=== PATIENT | female | born 1945 | race African-American/Black ===

== ENCOUNTER → 2016-05-29 | Outpatient (CLI) | payer MEDICARE, OTHER ==
[2014-11-07 18:00] VITALS: BP 180/86
[~2016-05-29] MED LIST: AMLO10TA4 PO; ASPI81TA2 PO; Albuterol Sulfate NEB; FLUT1DIS3 INH; FOLI1TAB16 PO; Hydrocodone Bit/Acetaminophen PO; LATA2.5D3 OP; Lisinopril PO; METH2.5T PO; METO25TA2 PO; MORP30TA83 PO; PANT40TA5 PO; POTA10TA10 PO; TIMO1DRO2 OP
--- NOTE | 2016-06-01 10:14 | RAD ---
DATE: 05/29/2016 EXAM: DIGITAL SCREEN BILAT W/CAD HISTORY: Routine screening COMPARISON: 12/03/2014 This study was interpreted with the benefit of Computerized Aided Detection (CAD). FINDINGS: There are scattered fibroglandular densities in the breasts. No new or enlarging breast densities are seen. There are scattered benign type calcifications. No suspicious microcalcifications have developed. Benign-appearing lymph node type densities are present maxillary regions. IMPRESSION: Stable mammograms without evidence of malignancy. BI-RADS CATEGORY: 2 BENIGN FINDING(S) RECOMMENDED FOLLOW-UP: 12M 12 MONTH FOLLOW-UP PQRS compliance statement: Patient information was entered into a reminder system with a target due date for the next mammogram. Mammography is a sensitive method for finding small breast cancers, but it does not detect them all and is not a substitute for careful clinical examination. A negative mammogram does not negate a clinically suspicious finding and should not result in delay in biopsying a clinically suspicious abnormality. "Our facility is accredited by the [employer] Mammography [employer]."
== END | disposition home or self-care (01) ==
LOC: MAMMO 14:51
PROVIDERS: ATTEND Family Medicine
DX: Z12.31 Encounter for screening mammogram for malignant neoplasm of breast (principal)
CPT/HCPCS: G0202; 77067

== ENCOUNTER → 2016-06-05 | Outpatient (CLI) | payer MEDICARE, OTHER ==
[2014-11-07 18:00] VITALS: BP 180/86
--- NOTE | 2016-06-05 12:12 | CARD ---
APPROVED REPORT EXAM: Two-dimensional and M-mode echocardiogram with Doppler and color Doppler. Other Information Quality : Good INDICATION Congestive Heart Failure 2D DIMENSIONS RVDd2.9 (2.9-3.5cm)Left Atrium(2D)4.3 (1.6-4.0cm) IVSd1.2 (0.7-1.1cm)Aortic Root(2D)2.7 (2.0-3.7cm) LVDd4.4 (3.9-5.9cm)LVOT Diameter2.3 (1.8-2.4cm) PWd1.2 (0.7-1.1cm)LVDs3.8 (2.5-4.0cm) FS (%) 20.0 %SV26.4 ml LVEF(%)40.0 (>50%) Aortic Valve AoV Peak Zbigniew.149.9cm/sAoV VTI31.6cm AO Peak GR.9.0mmHgLVOT Peak Zbigniew.124.5cm/s AO Mean GR.5mmHgAVA (VMAX)3.34cm2 ODIN (VTI)3.70cm2 Mitral Valve MV E Mfoamwxa79.3cm/sMV DECEL [id number] MV A Dyezpioq018.7cm/sE/A Ratio0.7 Tricuspid Valve TR P. Tkikdsas243fa/sRAP ZGVNQDVN2cfSa TR Peak Gr.74guVxJBWP64bpNh Pulmonary Vein S1 Wtkwnujs62.1cm/sD2 Eqxrxbae48.9cm/s PVa [id number] LEFT VENTRICLE The left ventricle is normal size. There is mild concentric left ventricular hypertrophy. Low normal LV function. EF 50%. There is minimal global hypokinesis. Transmitral Doppler flow pattern is Grade I -abnormal relaxation pattern. RIGHT VENTRICLE The right ventricle is normal size. The right ventricular systolic function is normal. ATRIA The left atrium is mildly dilated. The right atrium size is normal. The interatrial septum is intact with no evidence for an atrial septal defect or patent foramen ovale as noted on 2-D or Doppler imagi ng. AORTIC VALVE The aortic valve is calcified but opens well. Doppler and Color Flow revealed trace aortic regurgitat ion. There is no significant aortic valvular stenosis. MITRAL VALVE The mitral valve is calcified but opens well. Posterior mitral annular calcification is mild. There i s no evidence of mitral valve prolapse. There is no mitral valve stenosis. Doppler and Color-flow rev ealed mild mitral regurgitation. TRICUSPID VALVE The tricuspid valve is normal in structure and function. Doppler and Color Flow revealed mild tricusp id regurgitation. There is moderate pulmonary hypertension. The PA pressure was estimated at 42 mmHg. There is no tricuspid valve stenosis. PULMONIC VALVE Doppler and Color Flow revealed trace to mild pulmonic valvular regurgitation. There is no pulmonic v alvular stenosis. GREAT VESSELS The aortic root is normal in size. The IVC is dilated and collapses >50% with inspiration. PERICARDIAL EFFUSION There is no evidence of significant pericardial effusion. Critical Notification Critical Value: No <Conclusion> Low normal LV function. EF 50%. There is minimal global hypokinesis. Doppler and Color Flow revealed mild tricuspid regurgitation. There is moderate pulmonary hypertensio n. The PA pressure was estimated at 42 mmHg.
== END | disposition home or self-care (01) ==
LOC: ECHO 09:47
PROVIDERS: ATTEND Internal Medicine Cardiovascular Disease
DX: I50.30 Unspecified diastolic (congestive) heart failure (principal); I08.3 Combined rheumatic disorders of mitral, aortic and tricuspid valves; I27.2 Other secondary pulmonary hypertension
CPT/HCPCS: 93306

== ENCOUNTER 2016-06-15 15:17 | Inpatient (IN) | payer MEDICARE, OTHER ==
[~2016-06-15] VITALS: Ht 160 cm; Wt 110.7 kg
[2016-06-15] MEDS ORDERED: NITROGLYCERIN SUBLINGUAL 0.4 MG BOTTLE OF 25. SL PRN (16:30)
--- NOTE | 2016-06-15 16:30 | PHYS DOC ---
Past Medical History Past Medical History: Arthritis, Hypertension Additional Past Medical Histor: bradycardia- pacemaker placed Past Surgical History: Hysterectomy, Pacemaker, Tubal ligation Additional Past Surgical Histo: left wrist, left knee, hernia, cataract Alcohol Use: None Drug Use: None Adult General Chief Complaint Chief Complaint: CHEST PAIN [facility] HPI 70-year-old female who is presenting with right upper chest pain as well as pain that she states is in her right ear. She denies any neck or jaw pain. She does states she's mildly nauseated feels that she could vomit. She states the pain is somewhat reproducible. Patient does state she has a pacemaker but denies any history of cardiac stents. She is on eliquis for previous DVT. Review of Systems Review of Systems Constitutional: Denies fever or chills [] Eyes: Denies change in visual acuity, redness, or eye pain [] HENT: Denies nasal congestion or sore throat [] Respiratory: Denies cough or shortness of breath [] Cardiovascular: No additional information not addressed in HPI [] GI: Denies abdominal pain, has nausea, has vomiting, denies bloody stools or diarrhea [] : Denies dysuria or hematuria [] Musculoskeletal: Denies back pain or joint pain [] Integument: Denies rash or skin lesions [] Neurologic: Denies headache, focal weakness or sensory changes [] Endocrine: Denies polyuria or polydipsia [] Current Medications Current Medications Current Medications Medications (Trade) Dose Ordered Sig/Celina Start Time Stop Time Status Last Admin Dose Admin Nitroglycerin (Nitrostat) 0.4 mg PRN Q5MIN PRN 06/15/16 16:30 Allergies Allergies Allergies Coded Allergies Type Severity Reaction Last Updated Verified Penicillins Allergy Intermediate hives 12/06/13 Yes orange juice Allergy Intermediate unknown 12/06/13 Yes Physical Exam Physical Exam Constitutional: Well developed, well nourished, no acute distress, non-toxic appearance. [] HENT: Normocephalic, atraumatic, bilateral external ears normal, oropharynx moist, no oral exudates, nose normal. [] Eyes: PERRLA, EOMI, conjunctiva normal, no discharge. [] Neck: Normal range of motion, no tenderness, supple, no stridor. [] Cardiovascular:Heart rate regular rhythm, no murmur [] Lungs & Thorax: Bilateral breath sounds clear to auscultation [] Abdomen: Bowel sounds normal, soft, no tenderness, no masses, no pulsatile masses. [] Skin: Warm, dry, no erythema, no rash. [] Back: No tenderness, no CVA tenderness. [] Extremities: No tenderness, no cyanosis, no clubbing, ROM intact, no edema. [] Neurologic: Alert and oriented X 3, normal motor function, normal sensory function, no focal deficits noted. [] Psychologic: Affect normal, judgement normal, mood normal. [] Current Patient Data Vital Signs Vital Signs Date Time Temp Pulse Resp B/P Pulse Ox O2 Delivery O2 Flow Rate FiO2 06/15/16 18:30 70 194/90 95 Room Air 06/15/16 18:00 20 Lab Values Laboratory Tests Test 06/15/16 18:35 White Blood Count 5.5x10^3/uL (4.0-11.0) Red Blood Count 4.06x10^6/uL (3.50-5.40) Hemoglobin 11.7g/dL (12.0-15.5) L Hematocrit 36.5% (36.0-47.0) Mean Corpuscular Volume 90fL (79-100) Mean Corpuscular Hemoglobin 29pg (25-35) Mean Corpuscular Hemoglobin Concent 32g/dL (31-37) Red Cell Distribution Width 16.6% (11.5-14.5) H Platelet Count 215x10^3/uL (140-400) Neutrophils (%) (Auto) 39% (31-73) Lymphocytes (%) (Auto) 45% (24-48) Monocytes (%) (Auto) 8% (0-9) Eosinophils (%) (Auto) 7% (0-3) H Basophils (%) (Auto) 1% (0-3) Neutrophils # (Auto) 2.1x10^3uL (1.8-7.7) Lymphocytes # (Auto) 2.5x10^3/uL (1.0-4.8) Monocytes # (Auto) 0.5x10^3/uL (0.0-1.1) Eosinophils # (Auto) 0.4x10^3/uL (0.0-0.7) Basophils # (Auto) 0.1x10^3/uL (0.0-0.2) Sodium Level 138mmol/L (136-145) Potassium Level 3.1mmol/L (3.5-5.1) L Chloride Level 100mmol/L (98-107) Carbon Dioxide Level 31mmol/L (21-32) Anion Gap 7 (6-14) Blood Urea Nitrogen 14mg/dL (7-20) Creatinine 0.7mg/dL (0.6-1.0) Estimated GFR (Cockcroft-Gault) 99.8 Glucose Level 125mg/dL (70-99) H Calcium Level 8.8mg/dL (8.5-10.1) Troponin I Quantitative < 0.017ng/mL (0.000-0.055) Laboratory Tests 06/15/16 18:35 Laboratory Tests 06/15/16 18:35 EKG EKG EKG as interpreted by me shows a sinus rhythm with a rightward axis. There is an approximate rate of 71 bpm. There is a T-wave inversion to lead II, V3, aVF Radiology/Procedures Radiology/Procedures One view of the chest as interpreted by me does not reveal an acute cardiopulmonary process. Course & Med Decision Making Course & Med Decision Making Pertinent Labs and Imaging studies reviewed. (See chart for details) 70-year-old female is having significant right upper chest pain will have full laboratory workup pending EKG and chest x-ray. This time her symptoms seem somewhat atypical for cardiac chest pain as it is reproducible but her EKG does have some mild T-wave inversions noted. This in combination with her age and other health conditions warrant admission to the hospital for further evaluation of her chest pain. Her laboratory workup was unremarkable besides a low potassium of 3.1 for which I ordered potassium replacement. Dragon Disclaimer Dragon Disclaimer This electronic medical record was generated, in whole or in part, using a voice recognition dictation system. Departure Departure Impression: Primary Impression: Chest pain Disposition: 09 ADMITTED INPATIENT Admitting Physician: Bandar Hager Condition: STABLE Referrals: HORACE BARNES MD (PCP) GALDINO LEONARD DO Jun 15, 2016 16:30
--- NOTE | 2016-06-15 17:58 | EKG ---
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
[2016-06-15] MEDS ORDERED: OXYCODONE/APAP 5/325 TABLET. PO ONE (18:45)
[2016-06-15] MEDS ORDERED: ONDANSETRON PF 4 MG/2 ML VIAL. IV PRN (18:45)
[2016-06-15] MEDS ORDERED: ACETAMINOPHEN 325 MG TABLET. PO PRN (18:45)
[2016-06-15 18:54] LABS: BASO # 0.1 x10^3/uL (0.0-0.2); BASO % 1 % (0-3); EOS % 7 % (0-3); HEMATOCRIT 36.5 % (36.0-47.0); HEMOGLOBIN 11.7 g/dL (12.0-15.5); LYMPH # 2.5 x10^3/uL (1.0-4.8); LYMPH % 45 % (24-48); MEAN CORPUSCULAR HEMOGLOBIN 29 pg (25-35); MEAN CORPUSCULAR HGB CONC 32 g/dL (31-37); MEAN CORPUSCULAR VOLUME 90 fL (79-100); MONO % 8 % (0-9); NEUT % 39 % (31-73); PLATELET COUNT 215 x10^3/uL (140-400); RED BLOOD COUNT 4.06 x10^6/uL (3.50-5.40); RED CELL DISTRIBUTION WIDTH 16.6 % (11.5-14.5); WHITE BLOOD COUNT 5.5 x10^3/uL (4.0-11.0)
[2016-06-15 19:10] LABS: CALCIUM 8.8 mg/dL (8.5-10.1); CREATININE 0.7 mg/dL (0.6-1.0); GFR 99.8; POTASSIUM 3.1 mmol/L (3.5-5.1)
[2016-06-15] MEDS ORDERED: POTASSIUM CHLORIDE 20 MEQ TABLET.ER. PO ONE (20:45)
[2016-06-15 21:25] VITALS: BP 153/79
[2016-06-15 22:08] VITALS: BP 153/79
[2016-06-15 23:10] VITALS: BP 157/80
--- NOTE | 2016-06-15 23:10 | ACF ---
Admission Forms Criteria CARDIOLOGY GRG Clinical Indications for Admission to Inpatient Care ( Place 'X' for any and all applicable criteria): Hospital admission is needed for appropriate care of the patient because of ANY ONE of the following (1): [ ] I. Hemodynamic instability as indicated by ALL of the following (1)(2)(3) (4)(5) [ ]a) Vital signs or other findings not as expected for chronic patient condition or baseline [ ]b) Instability indicated by ANY ONE of the following: [ ]i) Hypotension [ ]ii) Symptomatic Tachycardia unresponsive to treatment ( e.g., analgesia, fluids, sedation as indicated) [ ]iii) Inadequate perfusion indicated by ANY ONE of the following: [ ] 1) Lactic acidosis (> 2 mmol/L) [ ] 2) New abnormal capillary refill (> 3 seconds) [ ] 3) Reduced urine output [ ] 4) New altered mental status [ ]iv) Orthostatic vital sign changes unresponsive to treatment (e.g., fluids) [ ]v) IV inotropic or vasopressor medication required to maintain adequate blood pressure or perfusion [ ] II. Severe heart failure as indicated by ANY ONE of the following(17)(18) [ ]a) Respiratory distress [ ]b) Hypotension [ ]c) Anasarca (refractory to outpatient therapy) [ ]d) Cardiac arrhythmias of immediate concern [ ]e) Myocardial ischemia [ ] III. Cardiac arrhythmias or findings of immediate concern indicated by ANY ONE of the following (19)(20): [ ] a) Heart rhythms that are inherently dangerous or unstable indicated by ANY ONE of the following (21)(22)(23): [ ] i) Resuscitated ventricular fibrillation or cardiac arrest [ ] ii) Ventricular escape rhythm [ ] iii) Sustained ventricular tachycardia (30 seconds or more of ventricular rhythm at greater than 100 beats per minute) [ ] iv) Nonsustained ventricular tachycardia and ANY ONE of the following: [ ] 1) Suspected cardiac ischemia as cause or consequence of ventricular tachycardia [ ] 2) In setting of acute myocarditis [ ] b) Unstable cardiac conduction defects indicated by ANY ONE of the following(23)(24)(25) [ ] i) Type II second-degree atrioventricular block [ ]ii) Third-degree atrioventricular block [ ]iii) New-onset left bundle branch block with suspected myocardial ischemia [ ]c) Any heart rhythm and ANY ONE of the following (21)(22)(26)(27) (28) [ ] i) Continuous long-term ECG monitoring needed (e.g., initiation of drug requiring monitoring for more than 24 hours) [ ] ii) Patient has automatic implanted cardioverter defibrillator that is repeatedly firing, malfunctioning, or in need of immediate adjustment of settings beyond the scope of ambulatory or observation care [ ]d) Heart rhythms of concern due to ANY ONE of the following: [ ] i) Hypotension [ ] ii) Respiratory distress [ ] iii) Association with other significant symptoms (e.g., bradycardia with syncope or ongoing dizziness, supraventricular tachycardia with chest pain (14)(15)(17) [ ] IV. Monitoring for cardiac contusion beyond the scope of observation care needed [A](30)(31)(32) [ ] V. Surgical or device complication (e.g., valve replacement complication , pacemaker dysfunction) (35)(41)(44)(45)(46) [ ] . Inpatient palliative care needed. [B](49) Also use Inpatient Palliative Care Criteria [ ] VII. Nonbacterial thrombotic (marantic) endocarditis (36)(43)(47)(48) [X] VIII. Cardiology condition, symptom, or finding for which emergency and observation care has failed or are not considered appropriate. [ ] IX. Acute valvular disease requiring inpatient as indicated by ANY ONE of the following (41) [ ]a) Acute valvular regurgitation (42) [ ]b) Noninfectious valvulitis (43) [ ]c) Obstructive valve thrombosis [ ]d) Paravalvular leak [ ]e) Other significant valvular disorder remaining after emergency or observation level of care (as appropriate) [ ]X. Pericardial disease requiring inpatient treatment as indicated by ANY ONE of the following (33)(34)(35)(36)(37) [ ]a) Suspected tamponade (38)(39)(40) [ ]b) Hemopericardium [ ]c) Other significant pericardial disorder remaining after emergency or observation level of care (as appropriate) [ ] XI. Cardiac ischemia beyond scope of emergency and observation care. [ ] XII. Hypertension requiring inpatient treatment as indicated by ANY ONE of the following (6)(7)(8) [ ]a) SBP greater than 220 mm Hg or DBP greater than 120 mmHg despite treatment [ ]b) SBP greater than 140 mm Hg or DBP greater than 100 mm Hg with evidence of acute end organ damage as indicated by ANY ONE of the following [ ] i) Encephalopathy [ ] ii) Acute renal failure as indicated by new onset of ANY ONE of the following (9)(10)(11)(12)(13) [ ]1) 3-fold rise in serum creatinine from baseline [ ]2) Serum creatinine greater than 4 mg/dL ( 354 micromoles/L) with acute rise greater than 0.5 mg/dL (44.2 micromoles/L) [ ]3) Reduction of more than 75% in estimated glomerular filtration rate from baseline [ ]4) Estimated glomerular filtration rate less than 35 mL/min/1.73m2 (0.59 mL/sec/1.73m2) in child up to 18 years of age [ ]5) Cessation of urine output indicated by ALL of the following [ ]A. Adequate volume status [ ]B. Inadequate urine output as indicated by ANY ONE of the following [ ]a. Urine output less than 0.3 mL/kg/hr for 24 hours [ ]b. Anuria (urine output less than 0.1 mL/kg/hr) for 12 hours [ ] iii) Aortic dissection [ ] iv) Myocardial Ischemia [ ] v) Left ventricular heart failure [ ]vi) Retinal Hemorrhage [ ]vii) Other significant finding [ ]c) Hypertension in child requiring inpatient treatment as indicated by ALL of the following(14)(15)(16) [ ] i) Outpatient treatment not effective, not available, or not appropriate [ ]ii) SBP or DBP greater than 95th percentile for age [ ]iii) Evidence of acute end organ damage as indicated by ANY ONE of the following [ ]1) Altered mental status [ ]2) Acute renal failure as indicated by new onset of ANY ONE of the following(9)(10)(11)(12)(13) [ ]A. 3-fold rise in serum creatinine from baseline [ ]B. Serum creatinine greater than 4 mg/dL (354 micromoles/L) with acute rise greater than 0.5 mg/dL (44.2 micromoles/L) [ ]C. Reduction of more than 75% in estimated glomerular filtration rate from baseline [ ]D. Estimated glomerular filtration rate less than 35 mL/min/1.73m2 (0.59 mL/sec/1.73m2) in child up to 18 years of age [ ]E. Cessation of urine output indicated by ALL of the following [ ]a. Adequate volume status [ ]b. Inadequate urine output as indicated by ANY ONE of the following [ ]i) Urine output less than 0.3 mL/kg/hr for 24 hours [ ]ii) Anuria ( urine output less than 0.1 mL/kg/hr) for 12 hours [ ]3) Severe headache [ ]4) Visual disturbance [ ]5) Retinal hemorrhage [ ]6) Other significant finding [ ]XIII. Complications of transplanted heart indicated by ANY ONE of the following(61): [ ]a) Acute graft rejection requiring inpatient management (eg, intravenous immunosuppression)(62)(63) [ ]b) Acute graft heart failure indicated by ANY ONE of the following(64): [ ]i) Hemodynamic instability [ ]ii) Cardiac arrhythmias of immediate concern [ ]iii) Pulmonary edema that is very severe (eg, mechanical ventilation needed, imminent or likely, need for 100% oxygen to keep oxygen saturation above 90%) [ ]iv) Pulmonary edema that is persistent as indicated by ALL of the following: [ ]1) New need for oxygen therapy to keep oxygen saturation above 90% (or increased FiO2 need from baseline) [ ]2) Has not improved sufficiently with emergency department or observation care IV diuretics or other heart failure treatments[E] [ ]v) Altered mental status that is severe or persistent [ ]vi) Increased creatinine (new on laboratory test) with reduction of more than 50% in estimated glomerular filtration rate from baseline [ ]vii) Progressively (ongoing) rising creatinine (known from past laboratory test) with reduction of more than 25% in estimated glomerular filtration rate from baseline [ ]viii) Acute renal failure [ ]ix) Acute peripheral ischemia (eg, examination shows pulseless, cool, mottled, or cyanotic extremity) [ ]x) Pulmonary artery catheter monitoring needed [ ]xi) Other sign or symptom of heart failure requiring inpatient treatment (ie, too severe or not responsive to outpatient and observation care treatment) [ ]c) Infection requiring inpatient management (eg, Hemodynamic instability, need for intravenous antimicrobial treatment)(66)(67)(68)(69)(70) [ ]d) Cardiac allograft vasculopathy requiring inpatient management ( eg evidence of cardiac ischemia)(71) [ ]e) Other complication of transplanted heart (eg, stroke, severe pulmonary hypertension, severe valvular dysfunction) requiring inpatient management(72) The original [facility] content created by [facility] has been revised. The portions of the content which have been revised are identified through the use of italic text or in bold, and [facility] has neither reviewed nor approved the modified material. All other unmodified content is copyright [facility]. Please see references footnoted in the original [facility] edition 2016 Admission Criteria Met?: Yes MARCUS HURLEY Jun 15, 2016 23:09
[2016-06-15] MEDS ORDERED: ADAL40KI SQ (23:45)
[2016-06-15] MEDS ORDERED: CYCL10TA2 PO (23:45)
[2016-06-15] MEDS ORDERED: FURO20TA3 PO (23:45)
[2016-06-15] MEDS ORDERED: NYST1000 PO (23:45)
[2016-06-15] MEDS ORDERED: APIX5TAB PO (23:45)
[2016-06-16] MEDS ORDERED: NON FORMULARY ITEM ([Albuterol Sulfate] (Ventolin Neb Soln) 2.5 MG) NEB PRN
[2016-06-16] MEDS: LATANOPROST 0.005% OPHTH SOLUTION 2.5ML BOTTLE. OU SCH ×2 (00:15→21:16)
[2016-06-16] MEDS: MORPHINE ER 30 MG TABLET.ER PO SCH ×3 (00:39→21:16)
[2016-06-16 02:55] VITALS: BP 156/93
[2016-06-16] MEDS: ALBUTEROL SULFATE 2.5 MG/3 ML NEBU. NEB SCH ×4 (07:28→18:47)
[2016-06-16 07:45] VITALS: BP 140/72
[2016-06-16] MEDS: ANTI-COAG MONITOR BY PHARMACY. MC PRN (08:55)
[2016-06-16] MEDS ORDERED: NYSTATIN 100,000 UNITS/ML 5 ML ORAL.SUSP. PO SCH (09:00)
--- NOTE | 2016-06-16 09:06 | RAD ---
Exam: AP portable chest. History: Chest pain, asthma. Comparison: 11/07/2014. Findings: Cardiac silhouette appears borderline in size. Pacemaker by left subclavian approach is unchanged. No pneumothorax or pleural effusion is identified. No focal consolidation or failure is seen. Impression: 1. No acute cardiopulmonary process.
--- NOTE | 2016-06-16 09:18 | PDOC2 ---
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 Reports that this same discomfort happened to her 1-2 weeks ago before coming to our office. This happened again during her lymphedema clinic session. She was not doing strenuous acitivty but was getting her legs wrapped when suddenly she started having right chest pain, jaw pain and shoulder pain. This lasted peaking for 5 minutes before decreasing in intensity. This was associated with nausea, diaphoresis and SOA. She was then advised to come to ED. Currently still has discomfort but this is reproducible with palpation and right shoulder ROM. Prior to this she has not been having intermittent symptoms. She has been complaint with her daily medications. She is somewhat stressed out about her living situation and still sad about the passing of her grandchild 1-2 yrs ago. PAST MEDICAL HISTORY Cardiovascular: AFIB (paroxysmal), CHF, HTN, Hyperlipidemia, Other ( symptomatic bradycardia) Pulmonary: Asthma, Bronchitis, Pneumonia, Other (pulmonary HTN) GI: Constipation, GERD, Other (hiatal/inguinal/ventral) Heme/Onc: No pertinent hx Hepatobiliary: No pertinent hx Psych: Anxiety Musculoskeletal: Osteoarthritis Rheumatologic: Rheumatoid arthritis Infectious disease: No pertinent hx ENT: Allergic Rhinitis, Other (glaucoma;cataract) Renal/: UTI, Urinary Incontinence Endocrine: No pertinent hx Dermatology: No pertinent hx PAST SURGICAL HISTORY Past Surgical History: Pacemaker (08/2013), Appendectomy, Cholecystectomy, Hernia Repair, Total knee replacement (left), Tonsillectomy, Hysterectomy FAMILY HISTORY Family History: Heart Disease (mother and father) SOCIAL HISTORY Smoke: No ALCOHOL: none Drugs: None Lives: with Family CURRENT MEDICATIONS CURRENT MEDICATIONS Current Medications Medications (Trade) Dose Ordered Sig/Celina Route PRN Reason Start Time Stop Time Status Last Admin Dose Admin Oxycodone/ Acetaminophen (Percocet 5/325) 1 tab 1X ONCE PO 06/15/16 18:45 06/15/16 18:46 DC 06/15/16 18:59 Potassium Chloride (Klor-Con) 40 meq 1X ONCE PO 06/15/16 20:45 06/15/16 20:46 DC 06/15/16 20:46 Morphine Sulfate (Ms Contin) 60 mg BID PO 06/16/16 00:15 06/16/16 00:39 Albuterol Sulfate (Ventolin Neb Soln) 2.5 mg RTQID NEB 06/16/16 08:00 06/16/16 07:28 Info (Anti-Coagulation Monitoring By Pharmacy) 1 each PRN DAILY PRN MC SEE COMMENTS 06/16/16 09:00 06/16/16 08:55 ALLERGIES ALLERGIES: Coded Allergies: Penicillins (Verified Allergy, Intermediate, hives , 12/06/13) orange juice (Verified Allergy, Intermediate, unknown, 12/06/13) ROS Review of System 14 point ROS evaluated with pertinent positives noted per HPI PHYSICAL EXAM General: Alert, Oriented X3, Cooperative, No acute distress HEENT: Atraumatic, Mucous membr. moist/pink Lungs: Clear to auscultation, Normal air movement Heart: Regular rate (SR), Normal S1, Normal S2, Other (2/6 systolic murmur to LLS border) Abdomen: Soft, No tenderness, Other (obese) Extremities: No cyanosis, Other (3+ bilateral LE pitting edema) Skin: No breakdown, No significant lesion Neuro: Normal speech, Sensation intact Psych/Mental Status: Mental status NL, Other (anxious) MUSCULOSKELETAL: Osteoarthritic changes both hands VITALS VITALS Vital Signs Date Time Temp Pulse Resp B/P Pulse Ox O2 Delivery O2 Flow Rate FiO2 06/16/16 07:45 98.5 70 18 140/72 94 Room Air 98.5 LABS Lab: Laboratory Tests Test 06/15/16 18:35 06/16/16 00:27 06/16/16 06:45 White Blood Count 5.5x10^3/uL (4.0-11.0) Red Blood Count 4.06x10^6/uL (3.50-5.40) Hemoglobin 11.7g/dL (12.0-15.5) Hematocrit 36.5% (36.0-47.0) Mean Corpuscular Volume 90fL (79-100) Mean Corpuscular Hemoglobin 29pg (25-35) Mean Corpuscular Hemoglobin Concent 32g/dL (31-37) Red Cell Distribution Width 16.6% (11.5-14.5) Platelet Count 215x10^3/uL (140-400) Neutrophils (%) (Auto) 39% (31-73) Lymphocytes (%) (Auto) 45% (24-48) Monocytes (%) (Auto) 8% (0-9) Eosinophils (%) (Auto) 7% (0-3) Basophils (%) (Auto) 1% (0-3) Neutrophils # (Auto) 2.1x10^3uL (1.8-7.7) Lymphocytes # (Auto) 2.5x10^3/uL (1.0-4.8) Monocytes # (Auto) 0.5x10^3/uL (0.0-1.1) Eosinophils # (Auto) 0.4x10^3/uL (0.0-0.7) Basophils # (Auto) 0.1x10^3/uL (0.0-0.2) Sodium Level 138mmol/L (136-145) Potassium Level 3.1mmol/L (3.5-5.1) Chloride Level 100mmol/L (98-107) Carbon Dioxide Level 31mmol/L (21-32) Anion Gap 7 (6-14) Blood Urea Nitrogen 14mg/dL (7-20) Creatinine 0.7mg/dL (0.6-1.0) Estimated GFR (Cockcroft-Gault) 99.8 Glucose Level 125mg/dL (70-99) Calcium Level 8.8mg/dL (8.5-10.1) Troponin I Quantitative < 0.017ng/mL (0.000-0.055) < 0.017ng/mL (0.000-0.055) < 0.017ng/mL (0.000-0.055) ECHOCARDIOGRAM ECHOCARDIOGRAM <Conclusion> Low normal LV function. EF 50%. There is minimal global hypokinesis. Doppler and Color Flow revealed mild tricuspid regurgitation. There is moderate pulmonary hypertension. The PA pressure was estimated at 42 mmHg. 06/05/2016 STRESS TEST STRESS TEST Conclusion 1. No evidence of significant ischemia or previous myocardial infarction appreciated. 2. Ejection fraction calculated to be 62% with normal wall motion on gated SPECT images. 3. Normal nuclear imaging scan. DATE: 03/02/14 0911 ASSESSMENT/PLAN ASSESSMENT/PLAN 1. Chest pain: mixed features. notable mild global hypokinesis on recent TTE. Possible MSK. 2. Chronic diastolic CHF with underlying moderate pulmonary HTN 3. PAFIB: SR 4. PPM: medtronic. recent device check 05/22/2016 with normal functioning. 5. Chronic lymphedema with venous insufficiency 6. Morbid obesity: BMI 44 7. Anxiety depression 8. GERD 9. HTN 10. HLP 11. Hypokalemia Recommendations 1. BMP, Mg, replace as warranted 2. Will completely rule out ischemic component via MPI, repeat EKG limb with noted lead reversal 3. Continue with secondary prevention 4. Apixaban and BB for AFIB control and stroke prevention Problems: SANTOS MEDINA MD 06/16/16 1508: CARDIAC CONSULT ALLERGIES ALLERGIES: Coded Allergies: Penicillins (Verified Allergy, Intermediate, hives , 12/06/13) orange juice (Verified Allergy, Intermediate, unknown, 12/06/13) ASSESSMENT/PLAN ASSESSMENT/PLAN Patient seen and examined. Agree with above nurse practitioner note. 70-year-old woman presenting to the hospital with atypical chest pain. She is well-known to me and was recently seen in clinic. She has had multiple stressors at home. She has chronic diastolic heart failure. Presently her pain is exacerbated with minimal activity and she occasionally has some radiation to the jaw but she also has reproducible chest pain throughout her her right chest wall. She has chronic lower extremity edema that's nonpitting in nature. Stress myocardial study today reveals normal LV function with no evidence of ischemia. Supportive care from a cardiovascular perspective with anticoagulation and rate control. Okay to discharge home from a cardiac perspective. Thank you for this consultation. Problems: ROE IRBY APRN Jun 16, 2016 09:18 SANTOS MEDINA MD Jun 16, 2016 15:08
[2016-06-16 09:38] LABS: CALCIUM 8.6 mg/dL (8.5-10.1); CREATININE 0.7 mg/dL (0.6-1.0); GFR 99.8; MAGNESIUM 1.9 mg/dL (1.8-2.4); POTASSIUM 3.4 mmol/L (3.5-5.1)
--- NOTE | 2016-06-16 09:39 | EKG ---
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
[2016-06-16] MEDS: POTASSIUM CHLORIDE 10 MEQ TABLET.ER. PO SCH (10:06)
[2016-06-16] MEDS: LISINOPRIL 40 MG TABLET. PO SCH (10:07)
[2016-06-16] MEDS: METOPROLOL SUCC 24HR ER 25 MG TAB.ER.24H. PO SCH (10:07)
[2016-06-16] MEDS: PANTOPRAZOLE 40 MG TABLET.DR. PO SCH (10:08)
[2016-06-16] MEDS: ASPIRIN CHEWABLE 81 MG TABLET. PO SCH (10:08)
[2016-06-16] MEDS: FUROSEMIDE 20 MG TABLET PO SCH (10:08)
[2016-06-16] MEDS: FOLIC ACID 1 MG TABLET. PO SCH (10:08)
[2016-06-16] MEDS: APIXABAN 5 MG TABLET. PO SCH ×2 (10:08→21:16)
[2016-06-16 10:34] VITALS: BP 146/81
[2016-06-16] MEDS ORDERED: REGADENOSON 0.4 MG/5 ML DISP.SYRIN. IV ONE ×2 (12:45→13:00)
--- NOTE | 2016-06-16 14:55 | RAD ---
APPROVED REPORT Test Type: Pharmacological Stress Nurse/Tech: Zakiya Ramey R.N. Test Indications: chest pain Cardiac History: asthma, htn Medications: see ehr Medical History: see ehr Resting ECG: sr Resting Heart Rate: 74 bpm Resting Blood Pressure: 134/79mmHg Pretest Chest Pain: No chest pain Nurse/Tech Notes lungs cta, heart tones regular, good radial pulse Consent: The procedure was explained to the patient in lay terms. Informed consent was witnessed. Tenzin eout was entered into [employer]. History and Stress Test performed by Zakiya Ramey R.N. Pharm. Details Pharmacologic stress testing was performed using 0.4mg per 5ml of regadenoson given intravenously ove r 7-10 seconds. Stress Symptoms No chest pain or symptoms. POST EXERCISE Reason for Termination: Infusion complete Target HR: No Max HR: 88 bpm Max Blood Pressure: 156/92mmHg Chest Pain: No. Arrhythmia: No. ST Change: No. INTERPRETATION Stress EKG Conclusion: No evidence of stress induced EKG changes. Imaging Protocol IMAGE PROTOCOL: Stress Tc-99m/rest Tc-99m 2 days Rest: Stress: Viability: Radiopharm.Tc99m Sestamibi Dose33.3mCi Duration 10min. Img Date 06/16/2016 Inj-Img [id number]. Stress Admin Site: Rt shoulder IVAdministrator: KERRY Lam STRESS DATA End Diast. Vol.95.0mlAv. Heart Rate82.0bpm End Syst. Vol.19.0mlCO Index BSA0.0L/min Myocardial Qcsj441.0gEject. Vmcyfizi88.0% Stress Rates Pk. Fill Rate2.71EDV/secLVtime Pk. Fill 130.00msec Pk. Empty Rate3.92ESV/secLVtime Pk. Pkayg621.75msec 02/24 Pk. Fill1.49EDV/sec Stress Scores Regional WT0.00Summed WT4.00 Regional WM0.00Summed WM0.00 LV Perfusion Normal perfusion at stress. Wall Motion Normal wall motion with an EF > 70% LV Perf. Quant 17 Seg. SSS3.00 Stress Defect Extent (% LAD)0.00Rest Defect Extent (% LAD)Rev. Defect Extent (% LAD)0.00 Stress Defect Extent (% LCX) 26.30Rest Defect Extent (% LCX)Rev. Defect Extent (% LCX)0.00 Stress Defect Extent (% RCA)0.00Rest Defect Extent (% RCA)Rev. Defect Extent (% RCA)0.00 Stress Defect Extent (% MOUNIKA)4.60Rest Defect Extent (% MOUNIKA)Rev. Defect Extent (% MOUNIKA)0.00 Other Information Quality:Average Risk Assessment: Low Risk Conclusion 1. No evidence of stress induced EKG changes 2. Normal perfusion at stress. 3. Low risk study 4. Normal EF at > 65%
[2016-06-16 15:10] VITALS: BP 142/74
[2016-06-16] MEDS: HYDROCODONE/APAP 10/325 TABLET. PO PRN (16:19)
[2016-06-16] MEDS: CYCLOBENZAPRINE 10 MG TABLET. PO PRN (16:19)
[2016-06-16] MEDS: AMLODIPINE BESYLATE 10 MG TABLET. PO SCH (16:19)
[2016-06-16 19:50] VITALS: BP 127/63
--- NOTE | 2016-06-16 22:07 | HP ---
ADMIT DATE: 06/15/2016 ADMISSION DIAGNOSIS: Right-sided chest pain. HISTORY OF PRESENT ILLNESS: A 70-year-old -[place]ames[place] female, who gets around with a cane in her right hand due to severe rheumatoid arthritis, who presented to the Emergency Room because of pain. It is in the right side of her chest. She did feel some nausea with it, but did not vomit. She has a history of heart disease and has had a pacemaker placed and is already anticoagulated due to a previous DVT. She was seen by the Emergency Room doctor, who decided admission, was important to rule out an underlying cardiac event. Overnight, her cardiac enzymes have remained normal and her chest pain has remained in her right side of her chest wall and is clearly musculoskeletal, but Cardiology has been consulted, and I feel the need to continue with additional testing. She lives with her sister. She has been depressed since the grandchild was murdered a couple of years ago. She does not use her walker. She does use a cane and she has had difficulties with her ADLs. She has previously been to penitentiary. She has had some increased edema in her legs. PAST MEDICAL HISTORY: Significant for rheumatoid arthritis, hypertension, pacemaker placement, and cataract extractions. PAST SURGICAL HISTORY: Include her pacemaker, hysterectomy, tubal ligation, procedures on her left wrist and left knee, hernia repair, and cataract extraction. SOCIAL HISTORY: Positive for various stressors, but she apparently does feel safe in her home. She does not use alcohol or drugs. FAMILY HISTORY: Noncontributory. ALLERGIES: PENICILLIN AND ORANGE JUICE. HOME MEDICATIONS: Include Humira 40 mg subq due on every other Tuesdays, amlodipine 10 mg daily, apixaban 5 mg b.i.d., aspirin 81 daily, cyclobenzaprine 10 q. 8 hours p.r.n., folic acid 1 mg daily, furosemide 20 mg daily, latanoprost eye drops 1 drop OP at bedtime, metoprolol succinate 25 mg extended release daily, morphine sulfate 60 mg extended release b.i.d., Nystatin 1000 units suspension oral q.i.d., pantoprazole 40 mg daily, potassium chloride 10 mEq daily, Timoptic 0.5% drops 1 each eye, Ventolin neb solution q.i.d. p.r.n., Lortab 10/325 2 tablets q. 6 hours p.r.n., and lisinopril 40 mg daily. REVIEW OF SYSTEMS: Remarkable for musculoskeletal pain. She had not had any recent cardiac symptoms. She had not had any shortness of breath. She has not had any infectious symptoms. No cough or cold symptoms. She has had nausea, but no vomiting. She has not had any diarrhea. She denied any urinary tract symptoms. She has not had any acute skin problems or lesions. She does feel fatigued and tired, but denies depression. PHYSICAL EXAMINATION: VITAL SIGNS: Afebrile, blood pressure borderline high at 146/81, room air oxygen saturation 95. GENERAL: She is lying in bed with covers all the way up. Movement seems to cause some discomfort. Discomfort localizes to the right chest wall with mild palpation that is reproducible. She does have some difficulty raising her arm. HEENT: Unremarkable. Sclerae are nonicteric. Conjunctivae are clear. Mucous membranes are moist. Ocular muscles are intact. Pupils are small. NECK: Supple. HEART: Regular rate and rhythm. LUNGS: Clear to auscultation. ABDOMEN: Soft, nondistended, and obese. She does have some lymphedema of her lower extremities and some rheumatologic joint changes without acute synovitis or effusion noted. LABORATORY DATA: Show a hemoglobin of 11.7, 7% EOs on her CBC, otherwise normal. Chemistries: Potassium a little low at 3.1, replaced up to 3.4 overnight. Troponins are all negative, less than 0.017. No microbiology. EKG shows some nonacute changes. Chest x-ray shows no acute process. Nuclear medicine scan is ordered. ASSESSMENT: Chest pain appears to be clearly musculoskeletal and right-sided. PLAN: Cardiology to see, nuclear med test to be done. Anticipate discharge. She may need a PT and OT to evaluate her and may need penitentiary. Walker would be better than a cane and her social situation will be addressed prior to discharge. W Bhavana STANFORD MD DR: CHRISTINE/randall JOB#: [id number] / [id number]
[2016-06-16 23:08] VITALS: BP 101/71
[2016-06-17] MEDS: HYDROCODONE/APAP 10/325 TABLET. PO PRN ×2 (01:33→18:22)
[2016-06-17 03:05] VITALS: BP 111/57
[2016-06-17 07:55] VITALS: BP 137/63
[2016-06-17] MEDS: ALBUTEROL SULFATE 2.5 MG/3 ML NEBU. NEB SCH ×3 (08:26→16:00)
[2016-06-17] MEDS: ANTI-COAG MONITOR BY PHARMACY. MC PRN (08:55)
[2016-06-17] MEDS: APIXABAN 5 MG TABLET. PO SCH (08:57)
[2016-06-17] MEDS: PANTOPRAZOLE 40 MG TABLET.DR. PO SCH (08:57)
[2016-06-17] MEDS: CYCLOBENZAPRINE 10 MG TABLET. PO PRN ×2 (08:57→18:22)
[2016-06-17] MEDS: MORPHINE ER 30 MG TABLET.ER PO SCH (08:57)
[2016-06-17] MEDS: ASPIRIN CHEWABLE 81 MG TABLET. PO SCH (08:57)
[2016-06-17] MEDS: POTASSIUM CHLORIDE 10 MEQ TABLET.ER. PO SCH (08:57)
[2016-06-17] MEDS: FOLIC ACID 1 MG TABLET. PO SCH (08:57)
[2016-06-17] MEDS: LISINOPRIL 40 MG TABLET. PO SCH (08:59)
[2016-06-17] MEDS: METOPROLOL SUCC 24HR ER 25 MG TAB.ER.24H. PO SCH (08:59)
[2016-06-17] MEDS: FUROSEMIDE 20 MG TABLET PO SCH (08:59)
[2016-06-17 11:13] VITALS: BP 122/70
[2016-06-17] MEDS: AMLODIPINE BESYLATE 10 MG TABLET. PO SCH (14:57)
--- NOTE | 2016-06-17 15:02 | PDOC3 ---
Discharge Summary Visit Information Date of Admission: Jun 15, 2016 Date of Discharge: Jun 17, 2016 Final Diagnosis Problems Medical Problems: (1) Chest pain Status: Acute (2) Chest pain, musculoskeletal Status: Acute Brief Hospital Course Allergies Allergies Coded Allergies Type Severity Reaction Last Updated Verified Penicillins Allergy Intermediate hives 12/06/13 Yes orange juice Allergy Intermediate unknown 12/06/13 Yes Vital Signs Vital Signs Date Time Temp Pulse Resp B/P Pulse Ox O2 Delivery O2 Flow Rate FiO2 06/17/16 14:57 71 122/70 06/17/16 12:57 18 93 Room Air 06/17/16 11:13 98.5 98.5 Lab Results Laboratory Tests Test 06/15/16 18:35 06/16/16 00:27 06/16/16 06:45 White Blood Count 5.5x10^3/uL (4.0-11.0) Red Blood Count 4.06x10^6/uL (3.50-5.40) Hemoglobin 11.7g/dL (12.0-15.5) Hematocrit 36.5% (36.0-47.0) Mean Corpuscular Volume 90fL (79-100) Mean Corpuscular Hemoglobin 29pg (25-35) Mean Corpuscular Hemoglobin Concent 32g/dL (31-37) Red Cell Distribution Width 16.6% (11.5-14.5) Platelet Count 215x10^3/uL (140-400) Neutrophils (%) (Auto) 39% (31-73) Lymphocytes (%) (Auto) 45% (24-48) Monocytes (%) (Auto) 8% (0-9) Eosinophils (%) (Auto) 7% (0-3) Basophils (%) (Auto) 1% (0-3) Neutrophils # (Auto) 2.1x10^3uL (1.8-7.7) Lymphocytes # (Auto) 2.5x10^3/uL (1.0-4.8) Monocytes # (Auto) 0.5x10^3/uL (0.0-1.1) Eosinophils # (Auto) 0.4x10^3/uL (0.0-0.7) Basophils # (Auto) 0.1x10^3/uL (0.0-0.2) Sodium Level 138mmol/L (136-145) 142mmol/L (136-145) Potassium Level 3.1mmol/L (3.5-5.1) 3.4mmol/L (3.5-5.1) Chloride Level 100mmol/L (98-107) 105mmol/L (98-107) Carbon Dioxide Level 31mmol/L (21-32) 29mmol/L (21-32) Anion Gap 7 (6-14) 8 (6-14) Blood Urea Nitrogen 14mg/dL (7-20) 10mg/dL (7-20) Creatinine 0.7mg/dL (0.6-1.0) 0.7mg/dL (0.6-1.0) Estimated GFR (Cockcroft-Gault) 99.8 99.8 Glucose Level 125mg/dL (70-99) 103mg/dL (70-99) Calcium Level 8.8mg/dL (8.5-10.1) 8.6mg/dL (8.5-10.1) Troponin I Quantitative < 0.017ng/mL (0.000-0.055) < 0.017ng/mL (0.000-0.055) < 0.017ng/mL (0.000-0.055) Magnesium Level 1.9mg/dL (1.8-2.4) Brief Hospital Course Ms. Mitchell is a 70 old who presented with chest pain and admitted for cardiac eval and had normal enzymes, no progression of EKG changes, cardiology consult and Stress MPI which was unremarkable. She has rheumatoid arthritis and missed her Humira shot last Wednesday. she is on chronic pain meds but most likely she flared musculoskeletal pain by using her cane. PT and OT have evaluated her and recommend home with HH and a front wheeled walker to replace her cane and expect her chest wall pain to resolve. No medical complications while here Discharge Information Condition at Discharge: Improved, Stable Follow Up: Weeks (1-[address] Hamilton) Disposition/Orders: D/C to Home w/ HH Scheduled ([Lisinopril]) 40 MG PO DAILY Amlodipine Besylate (Norvasc) 10 MG PO NOON Apixaban (Eliquis) 5 MG PO BID (Reported) Folic Acid (Folic Acid) 1 MG PO DAILY (Reported) Furosemide (Furosemide) 20 MG PO DAILY (Reported) Latanoprost (Latanoprost) 1 DROP OP HS (Reported) Metoprolol Succinate (Toprol Xl) 25 MG PO DAILY Morphine Sulfate Er (Ms Contin) 60 MG PO BID Nystatin (Nystatin) 5 ML PO QID (Reported) Pantoprazole Sodium (Pantoprazole Sodium) 40 MG PO DAILY (Reported) Potassium Chloride (Potassium Chloride) 10 MEQ PO DAILY (Reported) Scheduled PRN ([Albuterol Sulfate]) 2.5 MG NEB RTQID PRN PRN SHORTNESS OF BREATH ([Hydrocodone Bit/Acetaminophen]) 2 TAB PO PRN Q6HRS PRN PRN PAIN Cyclobenzaprine Hcl (Cyclobenzaprine Hcl) 10 MG PO PRN Q8HRS PRN PRN MUSCLE SPASMS (Reported) Miscellaneous Medications Adalimumab (Humira) 40 MG SQ (Reported) Aspirin (Aspirin) 81 MG PO (Reported) Timolol Maleate/Pf (Timoptic 0.5% Ocudose Drop) 1 EACH OP (Reported) ISAURA STANFORD MD Jun 17, 2016 15:02
[2016-06-17 15:32] VITALS: BP 136/74
== END 2016-06-17 18:30 | disposition home health service (06) | DRG 313 ==
LOC: ER 15:17 → ED HOLD 18:43 → 2 NORTH 21:00
PROVIDERS: ADMIT Family Medicine; ATTEND Family Medicine
DX: R07.89 Other chest pain (principal); I50.32 Chronic diastolic (congestive) heart failure; Z68.41 Body mass index [BMI] 40.0-44.9, adult; M06.9 Rheumatoid arthritis, unspecified; I11.0 Hypertensive heart disease with heart failure; I27.2 Other secondary pulmonary hypertension; K21.9 Gastro-esophageal reflux disease without esophagitis; F41.8 Other specified anxiety disorders; H40.9 Unspecified glaucoma; Z96.652 Presence of left artificial knee joint; E87.6 Hypokalemia; E78.5 Hyperlipidemia, unspecified; I48.0 Paroxysmal atrial fibrillation; I87.2 Venous insufficiency (chronic) (peripheral); E66.01 Morbid (severe) obesity due to excess calories; I89.0 Lymphedema, not elsewhere classified; Z86.718 Personal history of other venous thrombosis and embolism; Z90.710 Acquired absence of both cervix and uterus; Z98.51 Tubal ligation status; Z88.0 Allergy status to penicillin; Z91.018 Allergy to other foods; Z98.49 Cataract extraction status, unspecified eye; Z95.0 Presence of cardiac pacemaker; Z90.49 Acquired absence of other specified parts of digestive tract; Z82.49 Family history of ischemic heart disease and other diseases of the circulatory system
CPT/HCPCS: 36415; 71010; 78452; 80048; 83735; 84484; 85027; 93005; 93017; 94250; 94640; 94760; 96374; 96375; A9500; J2785; 99285-25

== ENCOUNTER → 2016-08-31 | Outpatient (CLI) | payer MEDICARE, OTHER ==
[~2016-08-31] MED LIST changes: +ADAL40KI SQ; +APIX5TAB PO; +ASPI-630 PO; -ASPI81TA2 PO; +CYCL10TA2 PO; +FURO20TA3 PO; +NYST100054 PO; -POTA10TA10 PO; +POTA10TA12 PO
--- NOTE | 2016-08-31 16:26 | RAD ---
Right knee, 3 views, 08/31/2016: History: Recent fall, pain There is severe narrowing of the knee joint space as well as the patellofemoral articulation. There is subchondral sclerosis, cyst formation and marginal spurring. No acute fracture or dislocation is identified. Moderate arterial calcifications are noted. IMPRESSION: 1. Severe degenerative change at the right knee. 2. No acute bony abnormality is detected.
== END | disposition home or self-care (01) ==
LOC: RAD 11:18
PROVIDERS: ATTEND Family Medicine
DX: M17.11 Unilateral primary osteoarthritis, right knee (principal)
CPT/HCPCS: 73562

== ENCOUNTER → 2016-10-23 | Outpatient (CLI) | payer MEDICARE, OTHER ==
[2016-10-21 13:08] VITALS: BP 133/63
[~2016-10-23] MED LIST changes: +POLY17PO3 PO; +VENL150C PO; +ZOLP5TAB PO
[2016-10-23 08:08] LABS: CALCIUM 8.5 mg/dL (8.5-10.1); CREATININE 0.7 mg/dL (0.6-1.0); GFR 99.5; POTASSIUM 3.7 mmol/L (3.5-5.1)
== END | disposition home or self-care (01) ==
LOC: SPEC 07:22
PROVIDERS: ATTEND Family Medicine
DX: I48.0 Paroxysmal atrial fibrillation (principal); F32.9 Major depressive disorder, single episode, unspecified; Z79.899 Other long term (current) drug therapy; J45.909 Unspecified asthma, uncomplicated
CPT/HCPCS: 36415; 80048

== ENCOUNTER → 2016-10-30 | Outpatient (CLI) | payer MEDICARE, OTHER ==
[2016-10-21 13:08] VITALS: BP 133/63
[2016-10-30 12:51] LABS: ALBUMIN/GLOBULIN RATIO 0.6 (1.0-1.7); CALCIUM 9.3 mg/dL (8.5-10.1); CREATININE 0.8 mg/dL (0.6-1.0); GFR 85.3; POTASSIUM 4.3 mmol/L (3.5-5.1); TOTAL BILIRUBIN 0.3 mg/dL (0.2-1.0); TOTAL PROTEIN 8.3 g/dL (6.4-8.2)
[2016-10-30 13:02] LABS: BASO # 0.1 x10^3/uL (0.0-0.2); BASO % 1 % (0-3); EOS % 5 % (0-3); HEMATOCRIT 36.1 % (36.0-47.0); HEMOGLOBIN 11.9 g/dL (12.0-15.5); LYMPH # 2.5 x10^3/uL (1.0-4.8); LYMPH % 50 % (24-48); MEAN CORPUSCULAR HEMOGLOBIN 29 pg (25-35); MEAN CORPUSCULAR HGB CONC 33 g/dL (31-37); MEAN CORPUSCULAR VOLUME 87 fL (79-100); MONO % 13 % (0-9); NEUT % 30 % (31-73); PLATELET COUNT 265 x10^3/uL (140-400); RED BLOOD COUNT 4.13 x10^6/uL (3.50-5.40); RED CELL DISTRIBUTION WIDTH 17.7 % (11.5-14.5); WHITE BLOOD COUNT 4.9 x10^3/uL (4.0-11.0)
== END | disposition home or self-care (01) ==
LOC: SPEC 12:10
PROVIDERS: ATTEND Family Medicine
DX: R10.9 Unspecified abdominal pain (principal)
CPT/HCPCS: 36415; 80053; 83690; 85025

== ENCOUNTER 2017-02-09 21:22 | Inpatient (IN) | payer MEDICARE, OTHER ==
[~2017-02-09] VITALS: Ht 162.6 cm; Wt 118.1 kg
[2017-02-09] MEDS ORDERED: IV NORMAL SALINE 1000ML BAG 1,000 ML IV ONE (21:45)
--- NOTE | 2017-02-09 21:50 | PHYS DOC ---
Past Medical History Past Medical History: A-Fib, Arthritis, Constipation, Depression, GERD, Hypertension, Other Additional Past Medical Histor: bradycardia,LYMPHEDEMA,RA,HYPERLIPIDEMIA,PULM HTN,URINE RETENTION Past Surgical History: Hysterectomy, Pacemaker, Tubal ligation Additional Past Surgical Histo: left wrist, left knee, hernia, cataract, L CHEST PACEMAKER Alcohol Use: None Drug Use: None Adult General Chief Complaint Chief Complaint: ALTERED MENTAL STATUS HPI HPI Patient is a 71 year old female who presents with altered mental status. The patient was brought to the emergency department by EMS from [facility] where she reportedly has been "lethargic all day." Patient was noted to have low oxygen saturations and was started on supplemental oxygen prior to my interview. The patient has no reports of fever. The patient is very lethargic and is unable to provide coherent history. Patient denies any complaints of pain at this time. The patient has history congestive heart failure and rheumatoid arthritis and is noted from chart review to be on chronic narcotic pain medications. The patient also reportedly received Ambien and lorazepam this evening. Patient has had no reported fever or cough. Review of Systems Review of Systems Constitutional: Drowsy, denies fever or chills [] Eyes: Denies change in visual acuity, redness, or eye pain [] HENT: Denies nasal congestion or sore throat [] Respiratory: Denies cough or shortness of breath [] Cardiovascular: Edema, denies chest pain[] GI: Denies abdominal pain, nausea, vomiting, bloody stools or diarrhea [] : Denies dysuria or hematuria [] Musculoskeletal: Denies back pain or joint pain [] Integument: Denies rash or skin lesions [] Neurologic: Denies headache, focal weakness or sensory changes [] All other systems were reviewed and found to be within normal limits, except as documented in this note. Current Medications Current Medications Current Medications Medications (Trade) Dose Ordered Sig/Celina Start Time Stop Time Status Last Admin Dose Admin Naloxone HCl (Narcan) 0.4 mg 1X ONCE 02/09/17 22:00 02/09/17 22:01 DC 02/09/17 22:22 0.4 MG Sodium Chloride 1,000 ml @ 125 mls/hr 1X ONCE 02/09/17 21:45 02/10/17 05:44 02/09/17 22:20 125 MLS/HR Allergies Allergies Allergies Coded Allergies Type Severity Reaction Last Updated Verified Penicillins Allergy Intermediate hives 10/19/16 Yes orange juice Allergy Intermediate unknown 10/19/16 Yes Physical Exam Physical Exam Constitutional: Lethargic, afebrile, hypoxic, no acute distress. [] HENT: Normocephalic, atraumatic, bilateral external ears normal, oropharynx moist, no oral exudates, nose normal. [] Eyes: PERRLA, EOMI, conjunctiva normal, no discharge. [] Neck: Normal range of motion, no tenderness, supple, no stridor. [] Cardiovascular:Heart rate regular rhythm, no murmur [] Lungs & Thorax: Bilateral breath sounds clear to auscultation [] Abdomen: Bowel sounds normal, soft, no tenderness, no masses, no pulsatile masses. [] Skin: Warm, dry, no erythema, no rash. [] Back: No tenderness, no CVA tenderness. [] Extremities: No tenderness, no cyanosis, no clubbing, ROM intact, 2+ edema bilaterally. [] Neurologic: Lethargic, opens eyes to voice, delayed verbal responses, normal motor function, normal sensory function, no focal deficits noted. [] Current Patient Data Vital Signs Vital Signs Date Time Temp Pulse Resp B/P (MAP) Pulse Ox O2 Delivery O2 Flow Rate FiO2 02/09/17 22:56 68 24 98 02/09/17 21:22 98.2 113/62 (79) Room Air 98.2 Lab Values Laboratory Tests Test 02/09/17 21:47 02/09/17 22:10 02/09/17 22:15 Glucose (Fingerstick) 121 mg/dL (70-99) H White Blood Count 7.2 x10^3/uL (4.0-11.0) Red Blood Count 4.39 x10^6/uL (3.50-5.40) Hemoglobin 12.7 g/dL (12.0-15.5) Hematocrit 39.1 % (36.0-47.0) Mean Corpuscular Volume 89 fL (79-100) Mean Corpuscular Hemoglobin 29 pg (25-35) Mean Corpuscular Hemoglobin Concent 33 g/dL (31-37) Red Cell Distribution Width 20.3 % (11.5-14.5) H Platelet Count 228 x10^3/uL (140-400) Neutrophils (%) (Auto) 73 % (31-73) Lymphocytes (%) (Auto) 19 % (24-48) L Monocytes (%) (Auto) 7 % (0-9) Eosinophils (%) (Auto) 1 % (0-3) Basophils (%) (Auto) 0 % (0-3) Neutrophils # (Auto) 5.2 x10^3uL (1.8-7.7) Lymphocytes # (Auto) 1.3 x10^3/uL (1.0-4.8) Monocytes # (Auto) 0.5 x10^3/uL (0.0-1.1) Eosinophils # (Auto) 0.1 x10^3/uL (0.0-0.7) Basophils # (Auto) 0.0 x10^3/uL (0.0-0.2) Platelet Estimate Adequate (ADEQUATE) Anisocytosis Mod Sodium Level 140 mmol/L (136-145) Potassium Level 4.1 mmol/L (3.5-5.1) Chloride Level 101 mmol/L (98-107) Carbon Dioxide Level 28 mmol/L (21-32) Anion Gap 11 (6-14) Blood Urea Nitrogen 44 mg/dL (7-20) H Creatinine 2.4 mg/dL (0.6-1.0) H Estimated GFR (Cockcroft-Gault) 24.0 BUN/Creatinine Ratio 18 (6-20) Glucose Level 133 mg/dL (70-99) H Calcium Level 9.1 mg/dL (8.5-10.1) Magnesium Level 2.5 mg/dL (1.8-2.4) H Total Bilirubin 0.3 mg/dL (0.2-1.0) Aspartate Amino Transferase (AST) 23 U/L (15-37) Alanine Aminotransferase (ALT) 19 U/L (14-59) Alkaline Phosphatase 123 U/L (46-116) H Creatine Kinase 273 U/L (26-192) H Creatine Kinase MB (Mass) 2.4 ng/mL (0.0-3.6) Creatine Kinase MB Relative Index 0.9 % (0-4) Troponin I Quantitative < 0.017 ng/mL (0.000-0.055) SS-Hek-O-Type Natriuretic Peptide 43 pg/mL (0-124) Total Protein 8.7 g/dL (6.4-8.2) H Albumin 3.7 g/dL (3.4-5.0) Albumin/Globulin Ratio 0.7 (1.0-1.7) L Urine Collection Type Unknown Urine Color Yellow Urine Clarity Clear Urine pH 5.0 Urine Specific [place] 1.025 Urine Protein Negative mg/dL (NEG-TRACE) Urine Glucose (UA) Negative mg/dL (NEG) Urine Ketones (Stick) Negative mg/dL (NEG) Urine Blood Negative (NEG) Urine Nitrite Negative (NEG) Urine Bilirubin Small (NEG) Urine Urobilinogen Dipstick 1.0 mg/dL (0.2 mg/dL) Urine Leukocyte Esterase Negative (NEG) Urine RBC 1-2 /HPF (0-2) Urine WBC Occ /HPF (0-4) Urine Squamous Epithelial Cells Mod /LPF Urine Amorphous Sediment Present /HPF Urine Bacteria 0 /HPF (0-FEW) Urine Hyaline Casts Many /HPF Urine Mucus Marked /LPF Urine Opiates Screen Pos (NEG) Urine Methadone Screen Neg (NEG) Urine Barbiturates Neg (NEG) Urine Phencyclidine Screen Neg (NEG) Urine Amphetamine/Methamphetamine Neg (NEG) Urine Benzodiazepines Screen Pos (NEG) Urine Cocaine Screen Neg (NEG) Urine Cannabinoids Screen Neg (NEG) Urine Ethyl Alcohol Neg (NEG) Laboratory Tests 02/09/17 22:10 Laboratory Tests 02/09/17 22:10 EKG EKG Interpreted by me: Heart rate 71, sinus rhythm, leftward axis, no acute ST/T- wave abnormalities present Radiology/Procedures Radiology/Procedures One view AP chest x-ray interpreted by me: No infiltrates, no effusions, normal cardiac silhouette[] Course & Med Decision Making Course & Med Decision Making Pertinent Labs and Imaging studies reviewed. (See chart for details) Patient is found have pinpoint pupils and decreased respirations on initial exam consistent with opioid toxicity. Patient was given Narcan in the emergency department with slight improvement in symptoms. The patient was found to have signs of acute renal failure on blood work which is likely contributing to opioid toxicity from the patient's chronic narcotic pain medications. Due to continued need for supplemental oxygen and altered mental status, the patient will need to be admitted to the hospital for further evaluation and treatment. I spoke with Dr. Moreno who agreed that patient would need admission to the ICU for further care for tonight until symptoms improved. Dragon Disclaimer Dragon Disclaimer This electronic medical record was generated, in whole or in part, using a voice recognition dictation system. Departure Departure Impression: Primary Impression: Opioid overdose Additional Impression: Acute renal failure Disposition: ADMITTED INPATIENT Admitting Physician: Jo Moreno Condition: GUARDED Referrals: JO MORENO MD (PCP) Problem Qualifiers Primary Impression: Opioid overdose Encounter type: initial encounter Injury intent: accidental or unintentional Qualified Codes: T40.2X1A - Poisoning by other opioids, accidental (unintentional), initial encounter Additional Impression: Acute renal failure Acute renal failure type: unspecified Qualified Codes: N17.9 - Acute kidney failure, unspecified HI ALEX MD Feb 09, 2017 21:50
[2017-02-09] MEDS ORDERED: NALOXONE 0.4 MG/ML VIAL. IV ONE (22:00)
[2017-02-09 22:20] LABS: BASO % 0 % (0-3); EOS % 1 % (0-3); HEMATOCRIT 39.1 % (36.0-47.0); HEMOGLOBIN 12.7 g/dL (12.0-15.5); LYMPH # 1.3 x10^3/uL (1.0-4.8); LYMPH % 19 % (24-48); MEAN CORPUSCULAR HEMOGLOBIN 29 pg (25-35); MEAN CORPUSCULAR HGB CONC 33 g/dL (31-37); MEAN CORPUSCULAR VOLUME 89 fL (79-100); MONO % 7 % (0-9); NEUT % 73 % (31-73); PLATELET COUNT 228 x10^3/uL (140-400); RED BLOOD COUNT 4.39 x10^6/uL (3.50-5.40); RED CELL DISTRIBUTION WIDTH 20.3 % (11.5-14.5); WHITE BLOOD COUNT 7.2 x10^3/uL (4.0-11.0)
[2017-02-09 22:24] LABS: BILIRUBIN,URINE SMALL (NEG); GLUCOSE,URINE NEGATIVE (NEG); NITRITE,URINE NEGATIVE (NEG); PROTEIN,URINE NEGATIVE (NEG-TRACE)
[2017-02-09 22:30] LABS: BACTERIA,URINE 0 /HPF (0-FEW); SQUAMOUS EPITHELIAL CELL,UR MOD /LPF; WBC,URINE OCC /HPF (0-4)
[2017-02-09 22:31] LABS: BARBITURATES NEG (NEG); BENZODIAZEPINES POS (NEG); CANNABINOIDS NEG (NEG); COCAINE NEG (NEG); METHADONE NEG (NEG); OPIATES POS (NEG); PHENCYCLIDINE NEG (NEG)
[2017-02-09 22:35] LABS: CALCIUM 9.1 mg/dL (8.5-10.1); CREATININE 2.4 mg/dL (0.6-1.0); POTASSIUM 4.1 mmol/L (3.5-5.1)
[2017-02-09 22:43] LABS: ALBUMIN 3.7 g/dL (3.4-5.0); ALBUMIN/GLOBULIN RATIO 0.7 (1.0-1.7); ANISOCYTOSIS MOD; MAGNESIUM 2.5 mg/dL (1.8-2.4); PLT ESTIMATE ADEQUATE (ADEQUATE); TOTAL BILIRUBIN 0.3 mg/dL (0.2-1.0); TOTAL PROTEIN 8.7 g/dL (6.4-8.2)
[2017-02-09 22:50] LABS: CKMB MASS 2.4 ng/mL (0.0-3.6)
[2017-02-09] MEDS ORDERED: ONDANSETRON PF 4 MG/2 ML VIAL. IV PRN (23:30)
[2017-02-09] MEDS: IV NORMAL SALINE 1000ML BAG 1,000 ML IV SCH (23:30)
[2017-02-09] MEDS ORDERED: NALOXONE 0.4 MG/ML VIAL. IV PRN (23:30)
[2017-02-10] VITALS (13 sets, daily range): BP systolic 109–188; BP diastolic 50–93
--- NOTE | 2017-02-10 00:34 | EKG ---
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
[2017-02-10 06:11] LABS: CALCIUM 8.6 mg/dL (8.5-10.1); CREATININE 1.7 mg/dL (0.6-1.0); GFR 35.7; POTASSIUM 3.7 mmol/L (3.5-5.1)
[2017-02-10 06:16] LABS: BASO % 1 % (0-3); EOS % 2 % (0-3); HEMATOCRIT 36.5 % (36.0-47.0); HEMOGLOBIN 11.5 g/dL (12.0-15.5); LYMPH # 2.3 x10^3/uL (1.0-4.8); LYMPH % 35 % (24-48); MEAN CORPUSCULAR HEMOGLOBIN 28 pg (25-35); MEAN CORPUSCULAR HGB CONC 32 g/dL (31-37); MEAN CORPUSCULAR VOLUME 90 fL (79-100); MONO % 9 % (0-9); NEUT % 54 % (31-73); PLATELET COUNT 184 x10^3/uL (140-400); RED BLOOD COUNT 4.05 x10^6/uL (3.50-5.40); RED CELL DISTRIBUTION WIDTH 20.6 % (11.5-14.5); WHITE BLOOD COUNT 6.5 x10^3/uL (4.0-11.0)
[2017-02-10] MEDS ORDERED: LINA72CA PO (07:17)
[2017-02-10] MEDS ORDERED: GABA-585 PO ×2 (07:17)
[2017-02-10] MEDS ORDERED: BUSP10TA PO (07:17)
[2017-02-10] MEDS ORDERED: BENZ1LOZ4 MM (07:17)
[2017-02-10] MEDS ORDERED: TAMS0.4C97 PO (07:17)
[2017-02-10] MEDS ORDERED: ERGO500027 PO (07:17)
[2017-02-10] MEDS ORDERED: SUCR1TAB35 PO (07:17)
[2017-02-10] MEDS ORDERED: GABA-586 PO (07:17)
[2017-02-10] MEDS ORDERED: METH2.5T PO (07:17)
[2017-02-10] MEDS ORDERED: FERR-26 PO (07:17)
[2017-02-10] MEDS ORDERED: MENT118G TP (07:17)
[2017-02-10] MEDS: IV NORMAL SALINE 1000ML BAG 1,000 ML IV SCH ×2 (07:30→18:30)
[2017-02-10] MEDS ORDERED: METO50TA6 PO (07:34)
[2017-02-10] MEDS ORDERED: VENLAFAXINE HCL PO (07:42)
[2017-02-10] MEDS ORDERED: POTA20TA82 PO (07:42)
[2017-02-10] MEDS ORDERED: PANT40TA3 PO (07:42)
[2017-02-10] MEDS ORDERED: ONDA4TAB11 PO (07:42)
[2017-02-10] MEDS ORDERED: ALPR0.5T6 PO (07:42)
[2017-02-10] MEDS ORDERED: MORP60TA PO (07:42)
[2017-02-10] MEDS ORDERED: HYDR-2766 PO (07:44)
--- NOTE | 2017-02-10 07:59 | RAD ---
History: Hypoxia AP view the chest was obtained at 2234 hours. Comparison: December 15, 2016 The heart is mildly enlarged. Left-sided pacemaker is again seen. The pulmonary vasculature is normal. The lungs and pleural margins are clear. Impression: Mild cardiomegaly. Stable appearance of the chest.
--- NOTE | 2017-02-10 17:51 | PDOC2 ---
NEUROLOGY CONSULT Date of Admission Date of Admission DATE: 02/10/17 TIME: 17:35 Reason for Consult Reason for Consult: IMPRESSION: MS changes. Metabolic encephalopathy. Generalized weakness. Renal failure. DM AFib HTN Pacemaker in place. Benzo and opiate use. Obesity. RECOMMENDATIONS/PLAN: HCT w/o contrast. C-spine CT w/o contrast. Lab: see orders. EEG Treat medical diseases. OT/PT. HISTORY OF THE PRESENT ILLNESS: 71-y-old AA female [place] resident with above medical diseases was noted on to have mental status changes, lethargic. decreased response by facility staff, so EMS was called and patient was brought to the ER of [facility]. Neurology was called for consultation on 02/10. Patient complained generalized weakness in her UE and LE since 02/09. No symptoms of cranial nerve deficits or urinary or bowel dysfunction. PAST MEDICAL HISTORY: A-Fib, Arthritis, Constipation, Depression, GERD, Hypertension, bradycardia, LYMPHEDEMA,RA,HYPERLIPIDEMIA,PULM HTN,URINE RETENTION PAST SURGERY HISTORY: Pacemaker Placement, Hysterectomy,Tubal ligation, left wrist, left knee, hernia , cataract, L CHEST PACEMAKERS/P CABG, Tonsillectomy, Appendectomy, Cholecystectomy, Hysterectomy, Hernia Repair, Neck, Shoulder, Knee surgery. ALLERGY: Reviewed. MEDICATIONS: Refer to [facility] FAMILY HISTORY: Non contributory. SOCIAL HISTORY: Lives in prison. Denies current smoking, drinking, and illicit drug use. REVIEW OF SYSTEMS: Constitutional: Obesity. Head: No traumatic brain or head injury. Skin: No edema, or rash. Ear: No infection. Eyes: No vision loss or color blindness. Nose: No bleeding or purulent discharges. Hearing: Hearing decrease. Neck: No injury. Breast: No history of cancer, masses,or discharges. Cardiac: AFib, Pacemaker Placement, HTN, HLD. Pulmonary: No COPD. GI: GERD. Urinary/genital: UTI. Endocrinologic: Diabetes Mellitus, morbid obesity. Skeletomuscular: Generalized weakness. Neurological: see HP. Psychiatric: Denies drug use/abuse. Otherwise, not [id number] review of systems. PHYSICAL EXAMINATION: General appearance is in subacute distress. HEENT: Normocephalic and nontraumatic. Eyes, nose, ears, and throat are unremarkable. Neck is supple. No lymphadenopathy. No crepitus. Cardiovascular: S1, S2, regular rate and rhythm. Pulmonary: Clear to auscultation bilaterally. Abdomen: Bowel sounds are positive. Extremities: No rash, lesions, or edema. LE with restriction of range of motion NEUROLOGICAL EXAMINATION: Awake. Oriented to place and person but not to time.. PERRL. EOMI. CN: no focal findings. Muscle tone: within normal. Muscle strength: 4- UE, 2+ LE. DTR: 0-1 Plantar reflex: Neutral response bilaterally Gait: not examined in bed. Sensory exam: no acute abnormal findings. No acute cerebellar signs elicited. F-T-N test fine. Current Medications Current Medications Current Medications Sodium Chloride 1,000 ml @ 125 mls/hr 1X ONCE IV Last administered on 22:20; Start 02/09/17 at 21:45; Stop 02/10/17 at 05:44; Status DC Naloxone HCl (Narcan) 0.4 mg 1X ONCE IV Last administered on 02/09/17 22:22 ; Start 02/09/17 at 22:00; Stop 02/09/17 at 22:01; Status DC Ondansetron HCl (Zofran) 4 mg PRN Q8HRS PRN IV NAUSEA/VOMITING; Start at 23:30; Stop 02/10/17 at 23:29 Sodium Chloride 1,000 ml @ 125 mls/hr Q8H IV Last administered on 02/09/17 23:30; Start 02/09/17 at 23:30; Stop 02/10/17 at 23:29 Naloxone HCl (Narcan) 0.4 mg PRN Q2MIN PRN IV SEE COMMENTS; Start 02/09/17 at 23:30 Active Scripts Active Ambien (Zolpidem Tartrate) 5 Mg Tablet 5 Mg PO PRN QHS PRN 30 Days Polyethylene Glycol 3350 17 Gm Powd.pack 17 Gm PO DAILY 30 Days Effexor Xr (Venlafaxine Hcl) 150 Mg Cap.er.24h 1 Cap PO DAILY [Lisinopril] 40 MG Tablet 40 Mg PO DAILY [Albuterol Sulfate] 2.5 MG/3 ML Nebu 2.5 Mg NEB RTQID PRN Norvasc (Amlodipine Besylate) 10 Mg Tablet 10 Mg PO NOON Reported Hydrocodone-Apap 10-325 (Hydrocodone Bit/Acetaminophen) 1 Each Tablet 1 Tab PO PRN Q4HRS PRN Alprazolam 0.5 Mg Tablet 1 Tab PO HS [venlafaxine HCL] 100 Mg PO DAILY Protonix (Pantoprazole Sodium) 40 Mg Tablet.dr 40 Mg PO BID Potassium Chloride 20 Meq Tablet.er 20 Meq PO DAILY Ondansetron Hcl 4 Mg Tablet 4 Mg PO Q4HRS PRN Morphine Sulfate Er (Morphine Sulfate) 60 Mg Tablet.er 1 Tab PO BID Metoprolol Tartrate 50 Mg Tablet 1 Tab PO BID Methotrexate (Methotrexate Sodium) 2.5 Mg Tablet 3 Tab PO WEEKLY every Wednesday Linzess (Linaclotide) 72 Mcg Capsule 72 Mcg PO DAILY Ferrous Sulfate 325 Mg Tablet 1 Tab PO BID Gabapentin 100 Mg Capsule 100 Mg PO AFTRNOON Gabapentin 300 Mg Capsule 300 Mg PO HS Gabapentin 100 Mg Capsule 100 Mg PO DAILY07 Flomax (Tamsulosin Hcl) 0.4 Mg Cap.er.24h 1 Cap PO DAILY Vitamin D2 (Ergocalciferol (Vitamin D2)) 50,000 Unit Capsule 1 Cap PO DAILY Sore Throat Lozenge (Benzocaine/Menthol) 1 Each Lozenge 1 Each MM Q2HR PRN Carafate (Sucralfate) 1 Gm Tablet 1 Tab PO QID Buspirone Hcl 10 Mg Tablet 20 Mg PO TID Biofreeze (Menthol) 118 Ml Gel..ml. 118 Ml TP PRN PRN Furosemide 20 Mg Tablet 40 Mg PO DAILY Cyclobenzaprine Hcl 10 Mg Tablet 10 Mg PO PRN Q8HRS PRN Humira (Adalimumab) 40 Mg/0.8 Ml Kit 40 Mg SQ DAILY Eliquis (Apixaban) 5 Mg Tablet 5 Mg PO BID Aspirin 81 Mg Tab.chew 81 Mg PO Timoptic 0.5% Ocudose Drop (Timolol Maleate/Pf) 1 Each Droperette 1 Each OP Pantoprazole Sodium 40 Mg Tablet.dr 40 Mg PO DAILY Latanoprost 2.5 Ml Drops 1 Drop OP HS Folic Acid 1 Mg Tablet 1 Mg PO DAILY Allergies Allergies: Coded Allergies: Penicillins (Verified Allergy, Intermediate, hives , 10/19/16) orange juice (Verified Allergy, Intermediate, unknown, 10/19/16) Vitals VITALS Vital Signs Date Time Temp Pulse Resp B/P (MAP) Pulse Ox O2 Delivery O2 Flow Rate FiO2 02/10/17 15:56 96.6 61 19 145/70 (95) 96 Room Air 96.6 02/10/17 06:00 2.0 Labs Labs Laboratory Tests Test 02/09/17 21:47 02/09/17 22:10 02/09/17 22:15 02/10/17 05:50 Glucose (Fingerstick) 121 mg/dL (70-99) White Blood Count 7.2 x10^3/uL (4.0-11.0) 6.5 x10^3/uL (4.0-11.0) Red Blood Count 4.39 x10^6/uL (3.50-5.40) 4.05 x10^6/uL (3.50-5.40) Hemoglobin 12.7 g/dL (12.0-15.5) 11.5 g/dL (12.0-15.5) Hematocrit 39.1 % (36.0-47.0) 36.5 % (36.0-47.0) Mean Corpuscular Volume 89 fL (79-100) 90 fL (79-100) Mean Corpuscular Hemoglobin 29 pg (25-35) 28 pg (25-35) Mean Corpuscular Hemoglobin Concent 33 g/dL (31-37) 32 g/dL (31-37) Red Cell Distribution Width 20.3 % (11.5-14.5) 20.6 % (11.5-14.5) Platelet Count 228 x10^3/uL (140-400) 184 x10^3/uL (140-400) Neutrophils (%) (Auto) 73 % (31-73) 54 % (31-73) Lymphocytes (%) (Auto) 19 % (24-48) 35 % (24-48) Monocytes (%) (Auto) 7 % (0-9) 9 % (0-9) Eosinophils (%) (Auto) 1 % (0-3) 2 % (0-3) Basophils (%) (Auto) 0 % (0-3) 1 % (0-3) Neutrophils # (Auto) 5.2 x10^3uL (1.8-7.7) 3.5 x10^3uL (1.8-7.7) Lymphocytes # (Auto) 1.3 x10^3/uL (1.0-4.8) 2.3 x10^3/uL (1.0-4.8) Monocytes # (Auto) 0.5 x10^3/uL (0.0-1.1) 0.6 x10^3/uL (0.0-1.1) Eosinophils # (Auto) 0.1 x10^3/uL (0.0-0.7) 0.1 x10^3/uL (0.0-0.7) Basophils # (Auto) 0.0 x10^3/uL (0.0-0.2) 0.0 x10^3/uL (0.0-0.2) Platelet Estimate Adequate (ADEQUATE) Anisocytosis Mod Sodium Level 140 mmol/L (136-145) 145 mmol/L (136-145) Potassium Level 4.1 mmol/L (3.5-5.1) 3.7 mmol/L (3.5-5.1) Chloride Level 101 mmol/L (98-107) 107 mmol/L (98-107) Carbon Dioxide Level 28 mmol/L (21-32) 29 mmol/L (21-32) Anion Gap 11 (6-14) 9 (6-14) Blood Urea Nitrogen 44 mg/dL (7-20) 36 mg/dL (7-20) Creatinine 2.4 mg/dL (0.6-1.0) 1.7 mg/dL (0.6-1.0) Estimated GFR (Cockcroft-Gault) 24.0 35.7 BUN/Creatinine Ratio 18 (6-20) Glucose Level 133 mg/dL (70-99) 123 mg/dL (70-99) Calcium Level 9.1 mg/dL (8.5-10.1) 8.6 mg/dL (8.5-10.1) Magnesium Level 2.5 mg/dL (1.8-2.4) Total Bilirubin 0.3 mg/dL (0.2-1.0) Aspartate Amino Transf (AST/SGOT) 23 U/L (15-37) Alanine Aminotransferase (ALT/SGPT) 19 U/L (14-59) Alkaline Phosphatase 123 U/L (46-116) Creatine Kinase 273 U/L (26-192) Creatine Kinase MB (Mass) 2.4 ng/mL (0.0-3.6) Creatine Kinase MB Relative Index 0.9 % (0-4) Troponin I Quantitative < 0.017 ng/mL (0.000-0.055) UN-Fxz-O-Type Natriuretic Peptide 43 pg/mL (0-124) Total Protein 8.7 g/dL (6.4-8.2) Albumin 3.7 g/dL (3.4-5.0) Albumin/Globulin Ratio 0.7 (1.0-1.7) Urine Collection Type Unknown Urine Color Yellow Urine Clarity Clear Urine pH 5.0 Urine Specific [place] 1.025 Urine Protein Negative mg/dL (NEG-TRACE) Urine Glucose (UA) Negative mg/dL (NEG) Urine Ketones (Stick) Negative mg/dL (NEG) Urine Blood Negative (NEG) Urine Nitrite Negative (NEG) Urine Bilirubin Small (NEG) Urine Urobilinogen Dipstick 1.0 mg/dL (0.2 mg/dL) Urine Leukocyte Esterase Negative (NEG) Urine RBC 1-2 /HPF (0-2) Urine WBC Occ /HPF (0-4) Urine Squamous Epithelial Cells Mod /LPF Urine Amorphous Sediment Present /HPF Urine Bacteria 0 /HPF (0-FEW) Urine Hyaline Casts Many /HPF Urine Mucus Marked /LPF Urine Opiates Screen Pos (NEG) Urine Methadone Screen Neg (NEG) Urine Barbiturates Neg (NEG) Urine Phencyclidine Screen Neg (NEG) Urine Amphetamine/Methamphetamine Neg (NEG) Urine Benzodiazepines Screen Pos (NEG) Urine Cocaine Screen Neg (NEG) Urine Cannabinoids Screen Neg (NEG) Urine Ethyl Alcohol Neg (NEG) Test 02/10/17 16:42 Glucose (Fingerstick) 102 mg/dL (70-99) Laboratory Tests Test 02/09/17 21:47 02/09/17 22:10 02/09/17 22:15 02/10/17 05:50 Glucose (Fingerstick) 121 mg/dL (70-99) White Blood Count 7.2 x10^3/uL (4.0-11.0) 6.5 x10^3/uL (4.0-11.0) Red Blood Count 4.39 x10^6/uL (3.50-5.40) 4.05 x10^6/uL (3.50-5.40) Hemoglobin 12.7 g/dL (12.0-15.5) 11.5 g/dL (12.0-15.5) Hematocrit 39.1 % (36.0-47.0) 36.5 % (36.0-47.0) Mean Corpuscular Volume 89 fL (79-100) 90 fL (79-100) Mean Corpuscular Hemoglobin 29 pg (25-35) 28 pg (25-35) Mean Corpuscular Hemoglobin Concent 33 g/dL (31-37) 32 g/dL (31-37) Red Cell Distribution Width 20.3 % (11.5-14.5) 20.6 % (11.5-14.5) Platelet Count 228 x10^3/uL (140-400) 184 x10^3/uL (140-400) Neutrophils (%) (Auto) 73 % (31-73) 54 % (31-73) Lymphocytes (%) (Auto) 19 % (24-48) 35 % (24-48) Monocytes (%) (Auto) 7 % (0-9) 9 % (0-9) Eosinophils (%) (Auto) 1 % (0-3) 2 % (0-3) Basophils (%) (Auto) 0 % (0-3) 1 % (0-3) Neutrophils # (Auto) 5.2 x10^3uL (1.8-7.7) 3.5 x10^3uL (1.8-7.7) Lymphocytes # (Auto) 1.3 x10^3/uL (1.0-4.8) 2.3 x10^3/uL (1.0-4.8) Monocytes # (Auto) 0.5 x10^3/uL (0.0-1.1) 0.6 x10^3/uL (0.0-1.1) Eosinophils # (Auto) 0.1 x10^3/uL (0.0-0.7) 0.1 x10^3/uL (0.0-0.7) Basophils # (Auto) 0.0 x10^3/uL (0.0-0.2) 0.0 x10^3/uL (0.0-0.2) Platelet Estimate Adequate (ADEQUATE) Anisocytosis Mod Sodium Level 140 mmol/L (136-145) 145 mmol/L (136-145) Potassium Level 4.1 mmol/L (3.5-5.1) 3.7 mmol/L (3.5-5.1) Chloride Level 101 mmol/L (98-107) 107 mmol/L (98-107) Carbon Dioxide Level 28 mmol/L (21-32) 29 mmol/L (21-32) Anion Gap 11 (6-14) 9 (6-14) Blood Urea Nitrogen 44 mg/dL (7-20) 36 mg/dL (7-20) Creatinine 2.4 mg/dL (0.6-1.0) 1.7 mg/dL (0.6-1.0) Estimated GFR (Cockcroft-Gault) 24.0 35.7 BUN/Creatinine Ratio 18 (6-20) Glucose Level 133 mg/dL (70-99) 123 mg/dL (70-99) Calcium Level 9.1 mg/dL (8.5-10.1) 8.6 mg/dL (8.5-10.1) Magnesium Level 2.5 mg/dL (1.8-2.4) Total Bilirubin 0.3 mg/dL (0.2-1.0) Aspartate Amino Transf (AST/SGOT) 23 U/L (15-37) Alanine Aminotransferase (ALT/SGPT) 19 U/L (14-59) Alkaline Phosphatase 123 U/L (46-116) Creatine Kinase 273 U/L (26-192) Creatine Kinase MB (Mass) 2.4 ng/mL (0.0-3.6) Creatine Kinase MB Relative Index 0.9 % (0-4) Troponin I Quantitative < 0.017 ng/mL (0.000-0.055) KE-Kew-B-Type Natriuretic Peptide 43 pg/mL (0-124) Total Protein 8.7 g/dL (6.4-8.2) Albumin 3.7 g/dL (3.4-5.0) Albumin/Globulin Ratio 0.7 (1.0-1.7) Urine Collection Type Unknown Urine Color Yellow Urine Clarity Clear Urine pH 5.0 Urine Specific [place] 1.025 Urine Protein Negative mg/dL (NEG-TRACE) Urine Glucose (UA) Negative mg/dL (NEG) Urine Ketones (Stick) Negative mg/dL (NEG) Urine Blood Negative (NEG) Urine Nitrite Negative (NEG) Urine Bilirubin Small (NEG) Urine Urobilinogen Dipstick 1.0 mg/dL (0.2 mg/dL) Urine Leukocyte Esterase Negative (NEG) Urine RBC 1-2 /HPF (0-2) Urine WBC Occ /HPF (0-4) Urine Squamous Epithelial Cells Mod /LPF Urine Amorphous Sediment Present /HPF Urine Bacteria 0 /HPF (0-FEW) Urine Hyaline Casts Many /HPF Urine Mucus Marked /LPF Urine Opiates Screen Pos (NEG) Urine Methadone Screen Neg (NEG) Urine Barbiturates Neg (NEG) Urine Phencyclidine Screen Neg (NEG) Urine Amphetamine/Methamphetamine Neg (NEG) Urine Benzodiazepines Screen Pos (NEG) Urine Cocaine Screen Neg (NEG) Urine Cannabinoids Screen Neg (NEG) Urine Ethyl Alcohol Neg (NEG) Test 02/10/17 16:42 Glucose (Fingerstick) 102 mg/dL (70-99) DAMARIS PADRNO MD Feb 10, 2017 17:51
--- NOTE | 2017-02-10 18:00 | PDOC ---
GENERAL General: see dictated H&P. Problems: VITAL SIGNS Vital Signs: Vital Signs Date Time Temp Pulse Resp B/P (MAP) Pulse Ox O2 Delivery O2 Flow Rate FiO2 02/10/17 15:56 96.6 61 19 145/70 (95) 96 Room Air 96.6 02/10/17 06:00 2.0 I & O I & O Intake and Output 02/10/17 07:00 Intake Total 321 ml Output Total 400 ml Balance -79 ml IV Total 321 ml Output Urine Total 400 ml ALLERGIES Allergies: Allergies Coded Allergies Type Severity Reaction Last Updated Verified Penicillins Allergy Intermediate hives 10/19/16 Yes orange juice Allergy Intermediate unknown 10/19/16 Yes MEDS Medications: Current Medications Medications (Trade) Dose Ordered Sig/Celina Start Time Stop Time Status Last Admin Dose Admin Naloxone HCl (Narcan) 0.4 mg PRN Q2MIN PRN 02/09/17 23:30 Ondansetron HCl (Zofran) 4 mg PRN Q8HRS PRN 02/09/17 23:30 02/10/17 23:29 Sodium Chloride 1,000 ml @ 125 mls/hr Q8H 02/09/17 23:30 02/10/17 23:29 02/09/17 23:30 125 MLS/HR LAB Lab: Laboratory Tests Test 02/09/17 21:47 02/09/17 22:10 02/09/17 22:15 02/10/17 05:50 Glucose (Fingerstick) 121 mg/dL (70-99) White Blood Count 7.2 x10^3/uL (4.0-11.0) 6.5 x10^3/uL (4.0-11.0) Red Blood Count 4.39 x10^6/uL (3.50-5.40) 4.05 x10^6/uL (3.50-5.40) Hemoglobin 12.7 g/dL (12.0-15.5) 11.5 g/dL (12.0-15.5) Hematocrit 39.1 % (36.0-47.0) 36.5 % (36.0-47.0) Mean Corpuscular Volume 89 fL (79-100) 90 fL (79-100) Mean Corpuscular Hemoglobin 29 pg (25-35) 28 pg (25-35) Mean Corpuscular Hemoglobin Concent 33 g/dL (31-37) 32 g/dL (31-37) Red Cell Distribution Width 20.3 % (11.5-14.5) 20.6 % (11.5-14.5) Platelet Count 228 x10^3/uL (140-400) 184 x10^3/uL (140-400) Neutrophils (%) (Auto) 73 % (31-73) 54 % (31-73) Lymphocytes (%) (Auto) 19 % (24-48) 35 % (24-48) Monocytes (%) (Auto) 7 % (0-9) 9 % (0-9) Eosinophils (%) (Auto) 1 % (0-3) 2 % (0-3) Basophils (%) (Auto) 0 % (0-3) 1 % (0-3) Neutrophils # (Auto) 5.2 x10^3uL (1.8-7.7) 3.5 x10^3uL (1.8-7.7) Lymphocytes # (Auto) 1.3 x10^3/uL (1.0-4.8) 2.3 x10^3/uL (1.0-4.8) Monocytes # (Auto) 0.5 x10^3/uL (0.0-1.1) 0.6 x10^3/uL (0.0-1.1) Eosinophils # (Auto) 0.1 x10^3/uL (0.0-0.7) 0.1 x10^3/uL (0.0-0.7) Basophils # (Auto) 0.0 x10^3/uL (0.0-0.2) 0.0 x10^3/uL (0.0-0.2) Platelet Estimate Adequate (ADEQUATE) Anisocytosis Mod Sodium Level 140 mmol/L (136-145) 145 mmol/L (136-145) Potassium Level 4.1 mmol/L (3.5-5.1) 3.7 mmol/L (3.5-5.1) Chloride Level 101 mmol/L (98-107) 107 mmol/L (98-107) Carbon Dioxide Level 28 mmol/L (21-32) 29 mmol/L (21-32) Anion Gap 11 (6-14) 9 (6-14) Blood Urea Nitrogen 44 mg/dL (7-20) 36 mg/dL (7-20) Creatinine 2.4 mg/dL (0.6-1.0) 1.7 mg/dL (0.6-1.0) Estimated GFR (Cockcroft-Gault) 24.0 35.7 BUN/Creatinine Ratio 18 (6-20) Glucose Level 133 mg/dL (70-99) 123 mg/dL (70-99) Calcium Level 9.1 mg/dL (8.5-10.1) 8.6 mg/dL (8.5-10.1) Magnesium Level 2.5 mg/dL (1.8-2.4) Total Bilirubin 0.3 mg/dL (0.2-1.0) Aspartate Amino Transf (AST/SGOT) 23 U/L (15-37) Alanine Aminotransferase (ALT/SGPT) 19 U/L (14-59) Alkaline Phosphatase 123 U/L (46-116) Creatine Kinase 273 U/L (26-192) Creatine Kinase MB (Mass) 2.4 ng/mL (0.0-3.6) Creatine Kinase MB Relative Index 0.9 % (0-4) Troponin I Quantitative < 0.017 ng/mL (0.000-0.055) ZN-Cqu-W-Type Natriuretic Peptide 43 pg/mL (0-124) Total Protein 8.7 g/dL (6.4-8.2) Albumin 3.7 g/dL (3.4-5.0) Albumin/Globulin Ratio 0.7 (1.0-1.7) Urine Collection Type Unknown Urine Color Yellow Urine Clarity Clear Urine pH 5.0 Urine Specific [place] 1.025 Urine Protein Negative mg/dL (NEG-TRACE) Urine Glucose (UA) Negative mg/dL (NEG) Urine Ketones (Stick) Negative mg/dL (NEG) Urine Blood Negative (NEG) Urine Nitrite Negative (NEG) Urine Bilirubin Small (NEG) Urine Urobilinogen Dipstick 1.0 mg/dL (0.2 mg/dL) Urine Leukocyte Esterase Negative (NEG) Urine RBC 1-2 /HPF (0-2) Urine WBC Occ /HPF (0-4) Urine Squamous Epithelial Cells Mod /LPF Urine Amorphous Sediment Present /HPF Urine Bacteria 0 /HPF (0-FEW) Urine Hyaline Casts Many /HPF Urine Mucus Marked /LPF Urine Opiates Screen Pos (NEG) Urine Methadone Screen Neg (NEG) Urine Barbiturates Neg (NEG) Urine Phencyclidine Screen Neg (NEG) Urine Amphetamine/Methamphetamine Neg (NEG) Urine Benzodiazepines Screen Pos (NEG) Urine Cocaine Screen Neg (NEG) Urine Cannabinoids Screen Neg (NEG) Urine Ethyl Alcohol Neg (NEG) Test 02/10/17 16:42 Glucose (Fingerstick) 102 mg/dL (70-99) JO MORENO MD Feb 10, 2017 18:00
--- NOTE | 2017-02-10 18:22 | HP ---
ADMIT DATE: 02/09/2017 CHIEF COMPLAINT AND HISTORY OF PRESENT ILLNESS: This 71-year-old black female is known to me from followup at [facility]. I was called on the day of admission stating she was having altered mental status with much decreased level of consciousness, hypoxemia with O2 sats in the mid 80s and then relative hypotension with a systolic blood pressure around 90. She was sent to the Emergency Room where workup revealed acute renal failure with a relatively normal CBC. They felt this may be related to opioids which I doubt very seriously as the patient is a longterm resident, has no access to opioids other than what she has been taking on a regular basis up to this point in time. PAST MEDICAL HISTORY: Extensive, well documented on old charts. Does include constipation, depression, arthritis, AFib, GERD, hypertension. She has had a pacemaker for bradycardia, has lymphedema, rheumatoid arthritis, pulmonary hypertension, hyperlipidemia, urinary retention. PAST SURGICAL HISTORY: Hysterectomy, pacemaker placement, tubal ligation, left wrist, left knee surgery, hernia repair, cataracts. MEDICATIONS: Brought with the patient, listed on the computer and have been addressed. ALLERGIES: SHE IS ALLERGIC TO ORANGE JUICE. SOCIAL HISTORY: She is a nonsmoker, nondrinker, does not abuse drugs. Lives in a longterm setting. FAMILY HISTORY: Noncontributory. REVIEW OF SYSTEMS: Minimal, although she denies any pain or any specific complaints generally, but it is hard to arouse even by the morning following admission. PHYSICAL EXAMINATION: GENERAL: She is well-developed, well-nourished female who is quite lethargic. VITAL SIGNS: Stable. She is afebrile. HEAD, EYES, EARS, NOSE AND THROAT: Unremarkable. NECK: Supple without bruit, thyromegaly. CHEST: Clear to auscultation and percussion. HEART: Regular rate and rhythm without S3, S4, or murmur. ABDOMEN: Soft, nontender, without hepatosplenomegaly or masses. EXTREMITIES: Reveal 3-4+ edema with wraps present on both legs. NEUROLOGIC: Remarkable for the encephalopathic changes. IMPRESSION: Acute encephalopathy associated with hypoxia and relative hypotension and acute renal failure of uncertain etiology at this point in time. PLAN: The patient has been admitted. She is currently in the ICU setting and stable and may be transferred to the floor. I am going to ask Neurology to see her. The patient will be monitored, managed and treated appropriately. JO MORENO MD DR: Marcellus JOB#: [id number] / [id number]
[2017-02-10] MEDS: ACETAMINOPHEN 325 MG TABLET. PO PRN (22:45)
[2017-02-11 04:00] VITALS: BP 104/98
[2017-02-11 07:16] VITALS: BP 167/84
[2017-02-11] MEDS: NON FORMULARY ITEM (Adalimumab (Humira) 40 MG) SQ SCH (09:00)
[2017-02-11] MEDS: LINACLOTIDE 72 MCG PO SCH (09:00)
--- NOTE | 2017-02-11 09:05 | PDOC ---
GENERAL General: vss and afebrile. blood pressures starting to increase and will add norvasc back. awake and alert and complains bitterly of abdominal and leg pain this am. abdomen is diffusely tender and will check ct today. will add back long acting pain meds. chest clear and heart regular. neuro help appreciated. recheck renal function in am with markos on admit. Problems: VITAL SIGNS Vital Signs: Vital Signs Date Time Temp Pulse Resp B/P (MAP) Pulse Ox O2 Delivery O2 Flow Rate FiO2 02/11/17 07:16 98.1 71 17 167/84 (111) 96 Room Air 98.1 I & O I & O Intake and Output 02/11/17 07:00 Intake Total 420 ml Output Total 450 ml Balance -30 ml Intake Oral 420 ml Output Urine Total 450 ml # Voids 6 ALLERGIES Allergies: Allergies Coded Allergies Type Severity Reaction Last Updated Verified Penicillins Allergy Intermediate hives 10/19/16 Yes orange juice Allergy Intermediate 02/10/17 Yes MEDS Medications: Current Medications Medications (Trade) Dose Ordered Sig/Celina Start Time Stop Time Status Last Admin Dose Admin Acetaminophen (Tylenol) 650 mg PRN Q4HRS PRN 02/10/17 22:45 02/10/17 22:45 650 MG Naloxone HCl (Narcan) 0.4 mg PRN Q2MIN PRN 02/09/17 23:30 Ondansetron HCl (Zofran) 4 mg PRN Q8HRS PRN 02/09/17 23:30 02/10/17 23:29 DC Sodium Chloride 1,000 ml @ 125 mls/hr Q8H 02/09/17 23:30 02/10/17 23:29 DC 02/10/17 18:30 125 MLS/HR LAB Lab: Laboratory Tests Test 02/10/17 16:42 02/10/17 18:00 Glucose (Fingerstick) 102 mg/dL (70-99) Erythrocyte Sedimentation Rate 31 (0-25) Vitamin B12 Level 289 pg/mL (247-911) 25-Hydroxy Vitamin D Total 113.7 ng/mL (30-100) Thyroid Stimulating Hormone (TSH) 0.119 uIU/mL (0.358-3.74) JO MORENO MD Feb 11, 2017 09:05
--- NOTE | 2017-02-11 09:59 | RAD ---
Indication: Mental status changes. Axial imaging through the brain and cervical spine was performed without contrast. Sagittal and coronal reformations were also performed. Comparison is made with prior CT brain from 01/15/2010. CT brain: The ventricles and sulci are stable in appearance. There is mild periventricular hypodensity noted consistent with chronic microvascular ischemia. No sulcal effacement, midline shift or hemorrhage is detected. The cisterns are patent. The visualized paranasal sinuses are clear. Impression: No acute intracranial process is detected. CT cervical spine: Reversal of the normal cervical lordotic curvature is seen. There is multilevel degenerative disc disease with disc space narrowing and marginal spurring. No fractures are seen. Odontoid is intact. Impression: Cervical spondylosis. No acute bony abnormality is detected. PQRS Compliance Statement: One or more of the following individualized dose reduction techniques were utilized for this examination: 1. Automated exposure control 2. Adjustment of the mA and/or kV according to patient size 3. Use of iterative reconstruction technique
--- NOTE | 2017-02-11 10:06 | RAD ---
Indication: Abdominal pain. Axial imaging through the abdomen and pelvis was performed without contrast. Comparison is made with prior CT from 10/16/2016. Lung bases demonstrate some mild atelectasis or infiltrate in the posterior left lower lobe. No discrete liver mass is identified. The gallbladder appears surgically absent. Pancreas and spleen are unremarkable. No adrenal mass is identified. No renal calculi or hydronephrosis is seen. There are renal vascular calcifications present. Aorta is calcified but nonaneurysmal. The small and large bowel loops are normal caliber. No obstruction is seen. Note is made of a fat-containing umbilical hernia. Pessary within the midline of the pelvis is seen. The bladder is unremarkable. Impression: Stable CT of the abdomen and pelvis when compared with exam from 10/16/2016. No acute abnormality is detected. PQRS Compliance Statement: One or more of the following individualized dose reduction techniques were utilized for this examination: 1. Automated exposure control 2. Adjustment of the mA and/or kV according to patient size 3. Use of iterative reconstruction technique
[2017-02-11] MEDS: ACETAMINOPHEN 325 MG TABLET. PO PRN ×2 (10:11→18:43)
[2017-02-11 10:37] VITALS: BP 189/92
[2017-02-11] MEDS ORDERED: ALBUTEROL SULFATE 2.5 MG/3 ML NEBU. NEB PRN (11:00)
[2017-02-11] MEDS ORDERED: ONDANSETRON ODT 4 MG TAB.RAPDIS. PO PRN (11:00)
[2017-02-11] MEDS: POLYETHYLENE GLYCOL 3350 17 GM PACKET. PO SCH (11:30)
[2017-02-11 12:19] LABS: FREE T4 1.06 ng/dL (0.76-1.46)
--- NOTE | 2017-02-11 12:42 | EEG ---
DATE OF SERVICE: 02/11/2017 EEG NUMBER: [id number]. OBJECTIVE: This is a 71-year-old female patient with history of mental status changes. EEG was requested to evaluate cerebral activity. METHODS: Twenty electrodes were applied according to the international 10-20 electrode placement system. EKG monitoring, hyperventilation, intermittent photic stimulation, monopolar and bipolar montages are routinely utilized. The record was obtained on a digital system with video monitoring. FINDINGS: 1. Background: The patient was recorded in the awake, drowsy and sleep states. The overall background amplitude is 10-25 microvolts. A posterior dominant rhythm of 6-7 Hz is observed. 2. Abnormalities: No specific epileptiform discharge or electrographic seizure is seen. No diffuse slowing. 3. Activation: Hyperventilation was not performed because the patient was unable to follow the commands. Intermittent photic stimulation was performed with photic driving. No specific epileptiform discharge induced by intermittent photic stimulation. IMPRESSION: This EEG falls into the abnormal category of the study for the awake, drowsy and sleep states. The posterior dominant rhythm of 6-7 Hz is slow for age. No lateralizing, specific epileptiform discharge or electrographic seizure is seen. DAMARIS PADRON MD DR: JODY/randall JOB#: [id number] / [id number] ANDI
[2017-02-11] MEDS: VENLAFAXINE 50 MG TABLET. PO SCH ×2 (12:49→21:17)
[2017-02-11] MEDS: POTASSIUM CHLORIDE 20 MEQ TABLET.ER. PO SCH (12:49)
[2017-02-11] MEDS: ASPIRIN CHEWABLE 81 MG TABLET. PO SCH (12:50)
[2017-02-11] MEDS: FUROSEMIDE 40 MG TABLET. PO SCH (12:50)
[2017-02-11] MEDS: MORPHINE ER 30 MG TABLET.ER PO SCH ×2 (12:50→21:18)
[2017-02-11] MEDS: amLODIPine BESYLATE 10 MG TABLET PO SCH (12:50)
[2017-02-11] MEDS: APIXABAN 5 MG TABLET. PO SCH ×2 (12:50→21:17)
[2017-02-11] MEDS: PANTOPRAZOLE 40 MG TABLET.DR. PO SCH (12:51)
[2017-02-11 14:46] VITALS: BP 179/82
[2017-02-11] MEDS: ANTI-COAG MONITOR BY PHARMACY. MC PRN (14:59)
--- NOTE | 2017-02-11 16:31 | PDOC ---
PROGRESS NOTES Assessment Assessment MS changes. Metabolic encephalopathy. Generalized weakness. Renal failure. DM AFib HTN Pacemaker in place. Benzo and opiate use. Lymphedema, LE. Obesity. RECOMMENDATIONS/PLAN: Treat medical diseases. OT/PT. HCT: No acute findings. CCT: No severe stenosis. EEG: Pending. HISTORY OF THE PRESENT ILLNESS: 71-y-old AA female [place] resident with above medical diseases was noted on to have mental status changes, lethargic. decreased response by facility staff, so EMS was called and patient was brought to the ER of [facility]. Neurology was called for consultation on 02/10. Patient complained generalized weakness in her UE and LE since 02/09. No symptoms of cranial nerve deficits or urinary or bowel dysfunction. PAST MEDICAL HISTORY: A-Fib, Arthritis, Constipation, Depression, GERD, Hypertension, bradycardia, LYMPHEDEMA,RA,HYPERLIPIDEMIA,PULM HTN,URINE RETENTION PAST SURGERY HISTORY: Pacemaker Placement, Hysterectomy,Tubal ligation, left wrist, left knee, hernia , cataract, L CHEST PACEMAKERS/P CABG, Tonsillectomy, Appendectomy, Cholecystectomy, Hysterectomy, Hernia Repair, Neck, Shoulder, Knee surgery. ALLERGY: Reviewed. MEDICATIONS: Refer to [facility] FAMILY HISTORY: Non contributory. SOCIAL HISTORY: Lives in [facility]. Denies current smoking, drinking, and illicit drug use. REVIEW OF SYSTEMS: Constitutional: Obesity. Head: No traumatic brain or head injury. Skin: No edema, or rash. Ear: No infection. Eyes: No vision loss or color blindness. Nose: No bleeding or purulent discharges. Hearing: Hearing decrease. Neck: No injury. Breast: No history of cancer, masses,or discharges. Cardiac: AFib, Pacemaker Placement, HTN, HLD. Pulmonary: No COPD. GI: GERD. Urinary/genital: UTI. Endocrinologic: Diabetes Mellitus, morbid obesity. Skeletomuscular: Generalized weakness. Neurological: see HP. Psychiatric: Denies drug use/abuse. Otherwise, not [id number] review of systems. PHYSICAL EXAMINATION: General appearance is in subacute distress. HEENT: Normocephalic and nontraumatic. Eyes, nose, ears, and throat are unremarkable. Neck is supple. No lymphadenopathy. No crepitus. Cardiovascular: S1, S2, regular rate and rhythm. Pulmonary: Clear to auscultation bilaterally. Abdomen: Bowel sounds are positive. Extremities: No rash, lesions, or edema. LE with restriction of range of motion NEUROLOGICAL EXAMINATION: Awake. Oriented to place and person but not fully oriented to time. PERRL. EOMI. CN: no focal findings. Muscle tone: within normal. Muscle strength: 4 UE, 2+ LE. DTR: 0-1 Plantar reflex: Neutral response bilaterally Gait: not examined in bed. Sensory exam: no acute abnormal findings. No acute cerebellar signs elicited. F-T-N test fine. Objective Objective Vital Signs Date Time Temp Pulse Resp B/P (MAP) Pulse Ox O2 Delivery O2 Flow Rate FiO2 02/11/17 14:46 97.9 63 18 179/82 (114) 98 Room Air 97.9 Intake and Output 02/11/17 07:00 Intake Total 420 ml Output Total 450 ml Balance -30 ml Intake Oral 420 ml Output Urine Total 450 ml # Voids 6 Vitals Signs Vitals VS - Last 72 Hours, by Label Date Time Temp Pulse Resp B/P (MAP) Pulse Ox O2 Delivery O2 Flow Rate FiO2 02/11/17 14:46 97.9 63 18 179/82 (114) 98 Room Air 97.9 02/11/17 12:50 61 189/92 02/11/17 10:37 97.9 61 17 189/92 (124) 94 Room Air 97.9 02/11/17 07:16 98.1 71 17 167/84 (111) 96 Room Air 98.1 02/11/17 04:00 98.8 61 20 104/98 (100) 96 Room Air 98.8 02/10/17 23:51 98.6 64 19 188/93 (124) 92 Room Air 98.6 02/10/17 20:15 Room Air 02/10/17 20:00 98.6 62 19 164/78 (106) 93 Room Air 98.6 02/10/17 15:56 96.6 61 19 145/70 (95) 96 Room Air 96.6 02/10/17 12:00 60 17 118/52 (74) 96 Room Air 02/10/17 08:00 60 17 121/76 (91) 96 Room Air Laboratory Laboratory Laboratory Tests Test 02/10/17 16:42 02/10/17 18:00 02/11/17 11:36 Glucose (Fingerstick) 102 mg/dL (70-99) Erythrocyte Sedimentation Rate 31 (0-25) Vitamin B12 Level 289 pg/mL (247-911) 25-Hydroxy Vitamin D Total 113.7 ng/mL (30-100) Thyroid Stimulating Hormone (TSH) 0.119 uIU/mL (0.358-3.74) Free Thyroxine 1.06 ng/dL (0.76-1.46) Free Triiodothyronine (T3) pg/mL 2.44 pg/mL (2.18-3.98) Medication Medications Current Medications Acetaminophen (Tylenol) 650 mg PRN Q4HRS PRN PO MILD PAIN Last administered on 02/11/17 10:11; Start 02/10/17 at 22:45 Albuterol Sulfate (Ventolin Neb Soln) 2.5 mg PRN QID PRN NEB SHORTNESS OF BREATH; Start 02/11/17 at 11:00 Amlodipine Besylate (Norvasc) 10 mg NOON PO Last administered on 02/11/17 12: 50; Start 02/11/17 at 12:00 Apixaban (Eliquis) 5 mg BID PO Last administered on 02/11/17 12:50; Start at 11:30 Aspirin (Children'S Aspirin) 81 mg DAILY PO Last administered on 02/11/17 12: 50; Start 02/11/17 at 11:30 Furosemide (Lasix) 40 mg DAILY PO Last administered on 02/11/17 12:50; Start 02/11/17 at 11:30 Info (Anti-Coagulation Monitoring By Pharmacy) 1 each PRN DAILY PRN MC SEE COMMENTS Last administered on 02/11/17 14:59; Start 02/11/17 at 15:00 Latanoprost (Xalatan) 1 drop HS OU ; Start 02/11/17 at 21:00 Morphine Sulfate (Ms Contin) 60 mg BID PO Last administered on 02/11/17 12:50 ; Start 02/11/17 at 11:30 Non-Formulary Medication 40 mg DAILY SQ ; Start 02/11/17 at 09:00; Status UNV Non-Formulary Medication 72 mcg DAILY PO ; Start 02/11/17 at 09:00; Status UNV Ondansetron HCl (Zofran Odt) 4 mg PRN Q4HRS PRN PO NAUSEA/VOMITING Last administered on 02/11/17 14:40; Start 02/11/17 at 11:00 Pantoprazole Sodium (Protonix) 40 mg DAILYAC PO Last administered on 12:51; Start 02/11/17 at 11:30 Polyethylene Glycol (miraLAX PACKET) 17 gm DAILY PO ; Start 02/11/17 at 11:30 Potassium Chloride (Klor-Con) 20 meq DAILYWBKFT PO Last administered on 12:49; Start 02/11/17 at 11:30 Venlafaxine HCl (Effexor) 50 mg TID PO Last administered on 02/11/17 12:49; Start 02/11/17 at 14:00 Comment Review of Relevant I have reviewed the following items oswaldo (where applicable) has been applied. DAMARIS PADRON MD Feb 11, 2017 16:31
[2017-02-11] MEDS ORDERED: ONDANSETRON PF 4 MG/2 ML VIAL. IV PRN (17:30)
[2017-02-11 19:00] VITALS: BP 151/95
[2017-02-11] MEDS: LATANOPROST 0.005% OPHTH SOLUTION 2.5ML BOTTLE. OU SCH (21:21)
[2017-02-11 23:00] VITALS: BP 159/85
[2017-02-12] MEDS: ACETAMINOPHEN 325 MG TABLET. PO PRN ×4 (02:30→16:45)
[2017-02-12 03:00] VITALS: BP 130/75
[2017-02-12 05:42] LABS: CALCIUM 8.8 mg/dL (8.5-10.1); CREATININE 0.8 mg/dL (0.6-1.0); GFR 85.3
[2017-02-12 05:45] LABS: POTASSIUM 2.8 mmol/L (3.5-5.1)
[2017-02-12] MEDS ORDERED: POTASSIUM CHLORIDE 20 MEQ TABLET.ER. PO ONE ×2 (06:30→14:45)
[2017-02-12 07:00] VITALS: BP 153/81
--- NOTE | 2017-02-12 08:22 | PDOC ---
GENERAL General: vss and afebrile. awake and alert. nauseated and has abdominal pain. chest clear , heart regular, abdomen diffusely. ct abdomen and pelvis negative. will ask for GI opinion. K+2.8 and replacement ordered. blood pressures increasing and will add back lisinopril. Problems: VITAL SIGNS Vital Signs: Vital Signs Date Time Temp Pulse Resp B/P (MAP) Pulse Ox O2 Delivery O2 Flow Rate FiO2 02/12/17 07:00 97.8 64 20 153/81 (105) 93 Room Air 97.8 I & O I & O Intake and Output 02/12/17 07:00 Intake Total 520 ml Output Total 300 ml Balance 220 ml Intake Oral 520 ml Output Urine Total 300 ml # Voids 13 ALLERGIES Allergies: Allergies Coded Allergies Type Severity Reaction Last Updated Verified Penicillins Allergy Intermediate hives 10/19/16 Yes orange juice Allergy Intermediate 02/10/17 Yes MEDS Medications: Current Medications Medications (Trade) Dose Ordered Sig/Celina Start Time Stop Time Status Last Admin Dose Admin Acetaminophen (Tylenol) 650 mg PRN Q4HRS PRN 02/10/17 22:45 02/12/17 06:14 650 MG Albuterol Sulfate (Ventolin Neb Soln) 2.5 mg PRN QID PRN 02/11/17 11:00 Amlodipine Besylate (Norvasc) 10 mg NOON 02/11/17 12:00 02/11/17 12:50 10 MG Apixaban (Eliquis) 5 mg BID 02/11/17 11:30 02/11/17 21:17 5 MG Aspirin (Children'S Aspirin) 81 mg DAILY 02/11/17 11:30 02/11/17 12:50 81 MG Furosemide (Lasix) 40 mg DAILY 02/11/17 11:30 02/11/17 12:50 40 MG Info (Anti-Coagulation Monitoring By Pharmacy) 1 each PRN DAILY PRN 02/11/17 15:00 02/11/17 14:59 1 EACH Latanoprost (Xalatan) 1 drop HS 02/11/17 21:00 02/11/17 21:21 1 DROP Morphine Sulfate (Ms Contin) 60 mg BID 02/11/17 11:30 02/11/17 21:18 60 MG Naloxone HCl (Narcan) 0.4 mg PRN Q2MIN PRN 02/09/17 23:30 Non-Formulary Medication 72 mcg DAILY 02/11/17 09:00 UNV Ondansetron HCl (Zofran Odt) 4 mg PRN Q4HRS PRN 02/11/17 11:00 02/11/17 14:40 4 MG Ondansetron HCl (Zofran) 4 mg PRN Q4HRS PRN 02/11/17 17:30 Pantoprazole Sodium (Protonix) 40 mg DAILYAC 02/11/17 11:30 02/11/17 12:51 40 MG Polyethylene Glycol (miraLAX PACKET) 17 gm DAILY 02/11/17 11:30 Potassium Chloride (Klor-Con) 40 meq 1X ONCE 02/12/17 06:30 02/12/17 06:31 DC 02/12/17 06:12 40 MEQ Sodium Chloride 1,000 ml @ 125 mls/hr Q8H 02/09/17 23:30 02/10/17 23:29 DC 02/10/17 18:30 125 MLS/HR Venlafaxine HCl (Effexor) 50 mg TID 02/11/17 14:00 02/11/17 21:17 50 MG LAB Lab: Laboratory Tests Test 02/11/17 11:36 02/12/17 04:00 Free Thyroxine 1.06 ng/dL (0.76-1.46) Free Triiodothyronine (T3) pg/mL 2.44 pg/mL (2.18-3.98) Sodium Level 139 mmol/L (136-145) Potassium Level 2.8 mmol/L (3.5-5.1) Chloride Level 99 mmol/L (98-107) Carbon Dioxide Level 31 mmol/L (21-32) Anion Gap 9 (6-14) Blood Urea Nitrogen 10 mg/dL (7-20) Creatinine 0.8 mg/dL (0.6-1.0) Estimated GFR (Cockcroft-Gault) 85.3 Glucose Level 94 mg/dL (70-99) Calcium Level 8.8 mg/dL (8.5-10.1) JO MORENO MD Feb 12, 2017 08:22
[2017-02-12] MEDS: VENLAFAXINE 50 MG TABLET. PO SCH ×3 (08:59→20:39)
[2017-02-12] MEDS: FUROSEMIDE 40 MG TABLET. PO SCH (09:00)
[2017-02-12] MEDS: POLYETHYLENE GLYCOL 3350 17 GM PACKET. PO SCH (09:00)
[2017-02-12] MEDS: MORPHINE ER 30 MG TABLET.ER PO SCH ×2 (09:00→20:39)
[2017-02-12] MEDS: ASPIRIN CHEWABLE 81 MG TABLET. PO SCH (09:00)
[2017-02-12] MEDS: APIXABAN 5 MG TABLET. PO SCH ×2 (09:00→20:40)
[2017-02-12] MEDS: LINACLOTIDE 72 MCG PO SCH (09:00)
[2017-02-12] MEDS: NON FORMULARY ITEM (Adalimumab (Humira) 40 MG) SQ SCH (09:00)
[2017-02-12] MEDS: PANTOPRAZOLE 40 MG TABLET.DR. PO SCH (09:04)
[2017-02-12] MEDS: POTASSIUM CHLORIDE 20 MEQ TABLET.ER. PO SCH (09:04)
[2017-02-12] MEDS: amLODIPine BESYLATE 10 MG TABLET PO SCH (10:52)
[2017-02-12] MEDS: LISINOPRIL 20 MG TABLET PO SCH (10:53)
[2017-02-12 10:59] VITALS: BP 160/99
--- NOTE | 2017-02-12 12:02 | PDOC2 ---
GI CONSULT Reason For Consult: Abd pain HPI: HPI: 71 y/o female admitted w/ lethargy, mental status changes, CECILY. GI asked to see today re: abd pain. She tells me mid abd cramping every 3 hours. No appetite, some nausea. Vomited yesterday (RN says spit up). On chronic hydrocodone and morphine. Denies heartburn/reflux, dysphagia, diarrhea, and constipation. Last BM yesterday, soft. No bleeding. On pantoprazole, Miralax , ASA, Eliquis. Summary shows Linzess. S/p cholecystectomy. Previous GI workup: Colonoscopy 2010: internal hemorrhoids. Colon path 2012: normal random colon biopsy. EGD path 2012: mild chronic duodenitis (no sprue-like changes), reactive gastropathy (no H. pylori). GES 2013: T1/2 144 min, mild delay. SBS 2013: normal. EGD 2017: erosive gastritis, gastric polyps. PMH: PMH: CVA, HTN, asthma, RA (?on Humira), chronic pain, anxiety/depression, glaucoma, PVD, UTI, tubal ligation, cholecystectomy, hysterectomy, oophorectomy, inguinal hernia repair, tonsillectomy, pacemaker FH: Family History: DM, Hypertension, Other (ME) Social History: Smoke: No ALCOHOL: none Drugs: None ROS: GEN: Denies fevers, chills, sweats HEENT: Denies blurred vision, sore throat CV: Denies chest pain RESP: Denies shortness of air, cough GI: Per HPI : Denies hematuria, dysuria ENDO: Denies weight changes NEURO: Denies confusion, dizziness MSK: +chronic pain in legs SKIN: Denies jaundice, pruritus Vitals: Vitals: Vital Signs Date Time Temp Pulse Resp B/P (MAP) Pulse Ox O2 Delivery O2 Flow Rate FiO2 02/12/17 10:59 97.7 68 20 160/99 (119) 94 Room Air 97.7 Labs: Labs: Laboratory Tests Test 02/12/17 04:00 Sodium Level 139 mmol/L (136-145) Potassium Level 2.8 mmol/L (3.5-5.1) Chloride Level 99 mmol/L (98-107) Carbon Dioxide Level 31 mmol/L (21-32) Anion Gap 9 (6-14) Blood Urea Nitrogen 10 mg/dL (7-20) Creatinine 0.8 mg/dL (0.6-1.0) Estimated GFR (Cockcroft-Gault) 85.3 Glucose Level 94 mg/dL (70-99) Calcium Level 8.8 mg/dL (8.5-10.1) Allergies: Coded Allergies: Penicillins (Verified Allergy, Intermediate, hives , 10/19/16) orange juice (Verified Allergy, Intermediate, 02/10/17) Medications: Current Medications Medications (Trade) Dose Ordered Sig/Celina Route PRN Reason Start Time Stop Time Status Last Admin Dose Admin Amlodipine Besylate (Norvasc) 10 mg NOON PO 02/11/17 12:00 02/12/17 10:52 Latanoprost (Xalatan) 1 drop HS OU 02/11/17 21:00 02/11/17 21:21 Venlafaxine HCl (Effexor) 50 mg TID PO 02/11/17 14:00 02/12/17 08:59 Info (Anti-Coagulation Monitoring By Pharmacy) 1 each PRN DAILY PRN MC SEE COMMENTS 02/11/17 15:00 02/11/17 14:59 Potassium Chloride (Klor-Con) 40 meq 1X ONCE PO 02/12/17 06:30 02/12/17 06:31 DC 02/12/17 06:12 Lisinopril (Prinivil) 20 mg DAILY PO 02/12/17 10:00 02/12/17 10:53 Imaging: Imaging: CXR Impression: Mild cardiomegaly. Stable appearance of the chest. Head/C spine CT Impression: No acute intracranial process is detected. Impression: Cervical spondylosis. No acute bony abnormality is detected. CT A/P Impression: Stable CT of the abdomen and pelvis when compared with exam from . No acute abnormality is detected. Fat-containing umb hernia and pessary. S/p jose miguel. PE: GEN: NAD HEENT: Atraumatic, PERRL LUNGS: CTAB HEART: RRR ABD: NABS, S/ND/NT EXTREMITY: No edema SKIN: LLE wrapped NEURO/PSYCH: A & O 3 A/P: A/P: AMS - improved Abd cramping, anorexia, nausea H/o constipation - controlled CECILY, LLE wound, hypokalemia -- Previous GI workup per HPI, check GES. Continue PPI, constipation treatment. DANELLE FLOYD Feb 12, 2017 12:01
[2017-02-12 13:43] LABS: CALCIUM 8.8 mg/dL (8.5-10.1); CREATININE 0.7 mg/dL (0.6-1.0); GFR 99.5; POTASSIUM 3.2 mmol/L (3.5-5.1)
--- NOTE | 2017-02-12 14:59 | PDOC ---
PROGRESS NOTES Assessment Assessment MS changes. Metabolic encephalopathy. Generalized weakness. Renal failure. DM AFib HTN Pacemaker in place. Benzo and opiate use. Lymphedema, LE. Obesity. RECOMMENDATIONS/PLAN: Treat medical diseases. OT/PT. HCT: No acute findings. CCT: No severe stenosis. EEG 02/11: No seizure activity. Mild encephalopathy. HISTORY OF THE PRESENT ILLNESS: 71-y-old [place] female [place] resident with above medical diseases was noted on to have mental status changes, lethargic. decreased response by facility staff, so EMS was called and patient was brought to the ER of [facility]. Neurology was called for consultation on 02/10. Patient complained generalized weakness in her UE and LE since 02/09. No symptoms of cranial nerve deficits or urinary or bowel dysfunction. PAST MEDICAL HISTORY: A-Fib, Arthritis, Constipation, Depression, GERD, Hypertension, bradycardia, LYMPHEDEMA,RA,HYPERLIPIDEMIA,PULM HTN,URINE RETENTION PAST SURGERY HISTORY: Pacemaker Placement, Hysterectomy,Tubal ligation, left wrist, left knee, hernia , cataract, L CHEST PACEMAKERS/P CABG, Tonsillectomy, Appendectomy, Cholecystectomy, Hysterectomy, Hernia Repair, Neck, Shoulder, Knee surgery. ALLERGY: Reviewed. MEDICATIONS: Refer to [facility] FAMILY HISTORY: Non contributory. SOCIAL HISTORY: Lives in long term. Denies current smoking, drinking, and illicit drug use. REVIEW OF SYSTEMS: Constitutional: Obesity. Head: No traumatic brain or head injury. Skin: No edema, or rash. Ear: No infection. Eyes: No vision loss or color blindness. Nose: No bleeding or purulent discharges. Hearing: Hearing decrease. Neck: No injury. Breast: No history of cancer, masses,or discharges. Cardiac: AFib, Pacemaker Placement, HTN, HLD. Pulmonary: No COPD. GI: GERD. Urinary/genital: UTI. Endocrinologic: Diabetes Mellitus, morbid obesity. Skeletomuscular: Generalized weakness. Neurological: see HP. Psychiatric: Denies drug use/abuse. Otherwise, not [id number] review of systems. PHYSICAL EXAMINATION: General appearance is in subacute distress. HEENT: Normocephalic and nontraumatic. Eyes, nose, ears, and throat are unremarkable. Neck is supple. No lymphadenopathy. No crepitus. Cardiovascular: S1, S2, regular rate and rhythm. Pulmonary: Clear to auscultation bilaterally. Abdomen: Bowel sounds are positive. Extremities: No rash, lesions, or edema. LE with restriction of range of motion NEUROLOGICAL EXAMINATION: Awake. Oriented to place and person but not fully oriented to time. PERRL. EOMI. CN: no focal findings. Muscle tone: within normal. Muscle strength: 4+ UE, 2 LE. DTR: 0-1 Plantar reflex: Neutral response bilaterally Gait: not examined in bed. Sensory exam: no acute abnormal findings. No acute cerebellar signs elicited. F-T-N test fine. Objective Objective Vital Signs Date Time Temp Pulse Resp B/P (MAP) Pulse Ox O2 Delivery O2 Flow Rate FiO2 02/12/17 10:59 97.7 68 20 160/99 (119) 94 Room Air 97.7 Intake and Output 02/12/17 06:59 Intake Total 520 ml Output Total 300 ml Balance 220 ml Intake Oral 520 ml Output Urine Total 300 ml # Voids 13 Vitals Signs Vitals VS - Last 72 Hours, by Label Date Time Temp Pulse Resp B/P (MAP) Pulse Ox O2 Delivery O2 Flow Rate FiO2 02/12/17 10:59 97.7 68 20 160/99 (119) 94 Room Air 97.7 02/12/17 10:53 64 153/81 02/12/17 10:52 160/99 02/12/17 07:00 97.8 64 20 153/81 (105) 93 Room Air 97.8 02/12/17 03:00 98.9 64 18 130/75 (93) 91 Room Air 98.9 02/11/17 23:00 98.6 66 20 159/85 (109) 95 Room Air 98.6 02/11/17 21:18 20 Room Air 02/11/17 19:00 98.2 73 20 151/95 (113) 94 Room Air 98.2 02/11/17 14:46 97.9 63 18 179/82 (114) 98 Room Air 97.9 02/11/17 12:50 61 189/92 02/11/17 10:37 97.9 61 17 189/92 (124) 94 Room Air 97.9 02/11/17 07:16 98.1 71 17 167/84 (111) 96 Room Air 98.1 Laboratory Laboratory Laboratory Tests Test 02/12/17 04:00 02/12/17 13:10 Sodium Level 139 mmol/L (136-145) 138 mmol/L (136-145) Potassium Level 2.8 mmol/L (3.5-5.1) 3.2 mmol/L (3.5-5.1) Chloride Level 99 mmol/L (98-107) 97 mmol/L (98-107) Carbon Dioxide Level 31 mmol/L (21-32) 31 mmol/L (21-32) Anion Gap 9 (6-14) 10 (6-14) Blood Urea Nitrogen 10 mg/dL (7-20) 10 mg/dL (7-20) Creatinine 0.8 mg/dL (0.6-1.0) 0.7 mg/dL (0.6-1.0) Estimated GFR (Cockcroft-Gault) 85.3 99.5 Glucose Level 94 mg/dL (70-99) 98 mg/dL (70-99) Calcium Level 8.8 mg/dL (8.5-10.1) 8.8 mg/dL (8.5-10.1) Medication Medications Current Medications Info (Anti-Coagulation Monitoring By Pharmacy) 1 each PRN DAILY PRN MC SEE COMMENTS Last administered on 02/11/17 14:59; Start 02/11/17 at 15:00 Latanoprost (Xalatan) 1 drop HS OU Last administered on 02/11/17 21:21; Start 02/11/17 at 21:00 Lisinopril (Prinivil) 20 mg DAILY PO Last administered on 02/12/17 10:53; Start 02/12/17 at 10:00 Ondansetron HCl (Zofran) 4 mg PRN Q4HRS PRN IV NAUSEA/VOMITING; Start at 17:30 Potassium Chloride (Klor-Con) 40 meq 1X ONCE PO Last administered on 06:12; Start 02/12/17 at 06:30; Stop 02/12/17 at 06:31; Status DC Potassium Chloride (Klor-Con) 40 meq 1X ONCE PO ; Start 02/12/17 at 14:45; Stop 02/12/17 at 14:46; Status DC Comment Review of Relevant I have reviewed the following items oswaldo (where applicable) has been applied. DAMARIS PADRON MD Feb 12, 2017 14:59
[2017-02-12 15:00] VITALS: BP 155/84
--- NOTE | 2017-02-12 15:05 | RAD ---
Indication: Right leg pain. Grayscale, color-flow and duplex Doppler evaluation of the right lower extremity deep venous system was performed. FINDINGS: There is no evidence of a right lower extremity DVT. The right lower extremity venous system demonstrates normal compressibility with normal response to augmentation and Valsalva. No soft tissue fluid collections are identified. IMPRESSION: No evidence of right lower extremity DVT.
[2017-02-12] MEDS: ANTI-COAG MONITOR BY PHARMACY. MC PRN (16:25)
--- NOTE | 2017-02-12 16:51 | RAD ---
Gastric emptying study 02/12/2017 Clinical history: Abdominal pain with nausea and vomiting for one day. Technique: 2.0 mCi of technetium 99 M sulfur: Was administered with a solid meal containing eggs and ingested by the patient. Imaging of the abdomen was performed using the gamma camera for 60 minutes. A half time to gastric emptying was calculated. Findings: On the static images activity is seen within the gastric body and antrum. This gradually peristalsis into the small bowel during the course of the study. The half-time to gastric emptying is 64 minutes. This is within normal limits. Normal half-time to gastric emptying for solid food is 90 minutes or less. Impression: Normal gastric emptying study.
[2017-02-12 19:00] VITALS: BP 164/98
[2017-02-12] MEDS: LATANOPROST 0.005% OPHTH SOLUTION 2.5ML BOTTLE. OU SCH (20:40)
[2017-02-13] VITALS (8 sets, daily range): BP systolic 143–157; BP diastolic 75–85
[2017-02-13 05:35] LABS: BASO # 0.1 x10^3/uL (0.0-0.2); BASO % 1 % (0-3); EOS % 5 % (0-3); HEMATOCRIT 39.6 % (36.0-47.0); HEMOGLOBIN 12.9 g/dL (12.0-15.5); LYMPH # 2.3 x10^3/uL (1.0-4.8); LYMPH % 43 % (24-48); MEAN CORPUSCULAR HEMOGLOBIN 29 pg (25-35); MEAN CORPUSCULAR HGB CONC 33 g/dL (31-37); MEAN CORPUSCULAR VOLUME 89 fL (79-100); MONO % 13 % (0-9); NEUT % 38 % (31-73); PLATELET COUNT 192 x10^3/uL (140-400); RED BLOOD COUNT 4.47 x10^6/uL (3.50-5.40); RED CELL DISTRIBUTION WIDTH 19.3 % (11.5-14.5); WHITE BLOOD COUNT 5.3 x10^3/uL (4.0-11.0)
[2017-02-13 06:14] LABS: ALBUMIN 3.2 g/dL (3.4-5.0); ALBUMIN/GLOBULIN RATIO 0.7 (1.0-1.7); CALCIUM 8.7 mg/dL (8.5-10.1); CREATININE 0.8 mg/dL (0.6-1.0); GFR 85.3; POTASSIUM 3.5 mmol/L (3.5-5.1); TOTAL BILIRUBIN 0.8 mg/dL (0.2-1.0); TOTAL PROTEIN 7.8 g/dL (6.4-8.2)
[2017-02-13] MEDS: VENLAFAXINE 50 MG TABLET. PO SCH ×3 (08:48→20:22)
[2017-02-13] MEDS: POLYETHYLENE GLYCOL 3350 17 GM PACKET. PO SCH (08:48)
[2017-02-13] MEDS: PANTOPRAZOLE 40 MG TABLET.DR. PO SCH (08:49)
[2017-02-13] MEDS: FUROSEMIDE 40 MG TABLET. PO SCH (08:49)
[2017-02-13] MEDS: POTASSIUM CHLORIDE 20 MEQ TABLET.ER. PO SCH (08:49)
[2017-02-13] MEDS: ASPIRIN CHEWABLE 81 MG TABLET. PO SCH (08:49)
[2017-02-13] MEDS: APIXABAN 5 MG TABLET. PO SCH ×2 (08:49→20:22)
[2017-02-13] MEDS: LISINOPRIL 20 MG TABLET PO SCH (08:50)
[2017-02-13] MEDS: MORPHINE ER 30 MG TABLET.ER PO SCH ×2 (08:50→20:21)
[2017-02-13] MEDS: LINACLOTIDE 72 MCG PO SCH (09:00)
[2017-02-13] MEDS: NON FORMULARY ITEM (Adalimumab (Humira) 40 MG) SQ SCH (09:00)
--- NOTE | 2017-02-13 10:19 | PDOC ---
SUBJECTIVE Subjective up in chair , looks good OBJECTIVE Vital Signs Vital Signs Date Time Temp Pulse Resp B/P (MAP) Pulse Ox O2 Delivery O2 Flow Rate FiO2 02/13/17 08:50 66 157/85 02/13/17 08:50 20 93 Room Air 02/13/17 07:00 98.1 66 17 157/85 (109) 96 Room Air 98.1 02/13/17 03:22 97.1 62 18 156/82 (106) 96 Room Air 97.1 02/13/17 00:50 97.9 63 18 143/75 (97) 99 Room Air 97.9 02/13/17 00:39 99 Room Air 2.0 02/12/17 23:59 Room Air 02/12/17 20:39 97 Room Air 2.0 02/12/17 20:00 Room Air 02/12/17 19:00 98.1 67 18 164/98 (120) 97 Room Air 98.1 02/12/17 15:00 97.7 65 20 155/84 (107) 95 Room Air 97.7 02/12/17 10:59 97.7 68 20 160/99 (119) 94 Room Air 97.7 02/12/17 10:53 64 153/81 02/12/17 10:52 160/99 I & O Intake and Output 02/13/17 07:00 Intake Total 1300 ml Output Total 450 ml Balance 850 ml Intake Oral 1300 ml Output Urine Total 450 ml # Voids 4 PHYSICAL EXAM Physical Exam lungs better air movement heart Irreg abd soft ext decrease edema ASSESSMENT/PLAN Assessment/Plan 1- MS changes.improved 2-Metabolic encephalopathy. 3- Generalized weakness.start PT 4-Renal failure. 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 9-Benzo and opiate use. 10-Lymphedema, LE. 11-Obesity. 12- hypokalemia replaced Problems: COMMENT Lab Laboratory Tests Test 02/12/17 13:10 02/13/17 04:55 Sodium Level 138 mmol/L (136-145) 139 mmol/L (136-145) Potassium Level 3.2 mmol/L (3.5-5.1) 3.5 mmol/L (3.5-5.1) Chloride Level 97 mmol/L (98-107) 100 mmol/L (98-107) Carbon Dioxide Level 31 mmol/L (21-32) 30 mmol/L (21-32) Anion Gap 10 (6-14) 9 (6-14) Blood Urea Nitrogen 10 mg/dL (7-20) 12 mg/dL (7-20) Creatinine 0.7 mg/dL (0.6-1.0) 0.8 mg/dL (0.6-1.0) Estimated GFR (Cockcroft-Gault) 99.5 85.3 Glucose Level 98 mg/dL (70-99) 86 mg/dL (70-99) Calcium Level 8.8 mg/dL (8.5-10.1) 8.7 mg/dL (8.5-10.1) White Blood Count 5.3 x10^3/uL (4.0-11.0) Red Blood Count 4.47 x10^6/uL (3.50-5.40) Hemoglobin 12.9 g/dL (12.0-15.5) Hematocrit 39.6 % (36.0-47.0) Mean Corpuscular Volume 89 fL (79-100) Mean Corpuscular Hemoglobin 29 pg (25-35) Mean Corpuscular Hemoglobin Concent 33 g/dL (31-37) Red Cell Distribution Width 19.3 % (11.5-14.5) Platelet Count 192 x10^3/uL (140-400) Neutrophils (%) (Auto) 38 % (31-73) Lymphocytes (%) (Auto) 43 % (24-48) Monocytes (%) (Auto) 13 % (0-9) Eosinophils (%) (Auto) 5 % (0-3) Basophils (%) (Auto) 1 % (0-3) Neutrophils # (Auto) 2.0 x10^3uL (1.8-7.7) Lymphocytes # (Auto) 2.3 x10^3/uL (1.0-4.8) Monocytes # (Auto) 0.7 x10^3/uL (0.0-1.1) Eosinophils # (Auto) 0.3 x10^3/uL (0.0-0.7) Basophils # (Auto) 0.1 x10^3/uL (0.0-0.2) BUN/Creatinine Ratio 15 (6-20) Total Bilirubin 0.8 mg/dL (0.2-1.0) Aspartate Amino Transf (AST/SGOT) 26 U/L (15-37) Alanine Aminotransferase (ALT/SGPT) 23 U/L (14-59) Alkaline Phosphatase 108 U/L (46-116) Total Protein 7.8 g/dL (6.4-8.2) Albumin 3.2 g/dL (3.4-5.0) Albumin/Globulin Ratio 0.7 (1.0-1.7) MEGA MORELOS MD Feb 13, 2017 10:19
[2017-02-13] MEDS: ACETAMINOPHEN 325 MG TABLET. PO PRN ×2 (12:24→17:49)
[2017-02-13] MEDS: amLODIPine BESYLATE 10 MG TABLET PO SCH (12:25)
--- NOTE | 2017-02-13 13:05 | PDOC ---
PROGRESS NOTES Assessment Problems Medical Problems: (1) Acute renal failure Status: Acute (2) Opioid overdose Status: Acute Metabolic encephalopathy. Generalized weakness. Plan Treat medical diseases. OT/PT. Okay for discharge Subjective No complaints Objective Vital Signs Date Time Temp Pulse Resp B/P (MAP) Pulse Ox O2 Delivery O2 Flow Rate FiO2 02/13/17 12:25 62 150/77 02/13/17 10:47 98.6 17 94 Room Air 98.6 02/13/17 00:39 2.0 Intake and Output 02/13/17 07:00 Intake Total 1300 ml Output Total 450 ml Balance 850 ml Intake Oral 1300 ml Output Urine Total 450 ml # Voids 4 PHYSICAL EXAM Alert. Oriented to month, year, place and person. PERRL. EOMI. CN: no focal findings. Muscle tone: normal. Muscle strength: 4/5 arms, 2/5 legs DTR: 1+ Plantar reflex: Flexor Gait: not examined in bed. Sensory exam: no abnormal findings. No cerebellar signs elicited. Review of Relevant I have reviewed the following items oswaldo (where applicable) has been applied. Labs Laboratory Tests Test 02/12/17 04:00 02/12/17 13:10 02/13/17 04:55 Sodium Level 139 mmol/L (136-145) 138 mmol/L (136-145) 139 mmol/L (136-145) Potassium Level 2.8 mmol/L (3.5-5.1) 3.2 mmol/L (3.5-5.1) 3.5 mmol/L (3.5-5.1) Chloride Level 99 mmol/L (98-107) 97 mmol/L (98-107) 100 mmol/L (98-107) Carbon Dioxide Level 31 mmol/L (21-32) 31 mmol/L (21-32) 30 mmol/L (21-32) Anion Gap 9 (6-14) 10 (6-14) 9 (6-14) Blood Urea Nitrogen 10 mg/dL (7-20) 10 mg/dL (7-20) 12 mg/dL (7-20) Creatinine 0.8 mg/dL (0.6-1.0) 0.7 mg/dL (0.6-1.0) 0.8 mg/dL (0.6-1.0) Estimated GFR (Cockcroft-Gault) 85.3 99.5 85.3 Glucose Level 94 mg/dL (70-99) 98 mg/dL (70-99) 86 mg/dL (70-99) Calcium Level 8.8 mg/dL (8.5-10.1) 8.8 mg/dL (8.5-10.1) 8.7 mg/dL (8.5-10.1) White Blood Count 5.3 x10^3/uL (4.0-11.0) Red Blood Count 4.47 x10^6/uL (3.50-5.40) Hemoglobin 12.9 g/dL (12.0-15.5) Hematocrit 39.6 % (36.0-47.0) Mean Corpuscular Volume 89 fL (79-100) Mean Corpuscular Hemoglobin 29 pg (25-35) Mean Corpuscular Hemoglobin Concent 33 g/dL (31-37) Red Cell Distribution Width 19.3 % (11.5-14.5) Platelet Count 192 x10^3/uL (140-400) Neutrophils (%) (Auto) 38 % (31-73) Lymphocytes (%) (Auto) 43 % (24-48) Monocytes (%) (Auto) 13 % (0-9) Eosinophils (%) (Auto) 5 % (0-3) Basophils (%) (Auto) 1 % (0-3) Neutrophils # (Auto) 2.0 x10^3uL (1.8-7.7) Lymphocytes # (Auto) 2.3 x10^3/uL (1.0-4.8) Monocytes # (Auto) 0.7 x10^3/uL (0.0-1.1) Eosinophils # (Auto) 0.3 x10^3/uL (0.0-0.7) Basophils # (Auto) 0.1 x10^3/uL (0.0-0.2) BUN/Creatinine Ratio 15 (6-20) Total Bilirubin 0.8 mg/dL (0.2-1.0) Aspartate Amino Transf (AST/SGOT) 26 U/L (15-37) Alanine Aminotransferase (ALT/SGPT) 23 U/L (14-59) Alkaline Phosphatase 108 U/L (46-116) Total Protein 7.8 g/dL (6.4-8.2) Albumin 3.2 g/dL (3.4-5.0) Albumin/Globulin Ratio 0.7 (1.0-1.7) Laboratory Tests Test 02/12/17 13:10 02/13/17 04:55 Sodium Level 138 mmol/L (136-145) 139 mmol/L (136-145) Potassium Level 3.2 mmol/L (3.5-5.1) 3.5 mmol/L (3.5-5.1) Chloride Level 97 mmol/L (98-107) 100 mmol/L (98-107) Carbon Dioxide Level 31 mmol/L (21-32) 30 mmol/L (21-32) Anion Gap 10 (6-14) 9 (6-14) Blood Urea Nitrogen 10 mg/dL (7-20) 12 mg/dL (7-20) Creatinine 0.7 mg/dL (0.6-1.0) 0.8 mg/dL (0.6-1.0) Estimated GFR (Cockcroft-Gault) 99.5 85.3 Glucose Level 98 mg/dL (70-99) 86 mg/dL (70-99) Calcium Level 8.8 mg/dL (8.5-10.1) 8.7 mg/dL (8.5-10.1) White Blood Count 5.3 x10^3/uL (4.0-11.0) Red Blood Count 4.47 x10^6/uL (3.50-5.40) Hemoglobin 12.9 g/dL (12.0-15.5) Hematocrit 39.6 % (36.0-47.0) Mean Corpuscular Volume 89 fL (79-100) Mean Corpuscular Hemoglobin 29 pg (25-35) Mean Corpuscular Hemoglobin Concent 33 g/dL (31-37) Red Cell Distribution Width 19.3 % (11.5-14.5) Platelet Count 192 x10^3/uL (140-400) Neutrophils (%) (Auto) 38 % (31-73) Lymphocytes (%) (Auto) 43 % (24-48) Monocytes (%) (Auto) 13 % (0-9) Eosinophils (%) (Auto) 5 % (0-3) Basophils (%) (Auto) 1 % (0-3) Neutrophils # (Auto) 2.0 x10^3uL (1.8-7.7) Lymphocytes # (Auto) 2.3 x10^3/uL (1.0-4.8) Monocytes # (Auto) 0.7 x10^3/uL (0.0-1.1) Eosinophils # (Auto) 0.3 x10^3/uL (0.0-0.7) Basophils # (Auto) 0.1 x10^3/uL (0.0-0.2) BUN/Creatinine Ratio 15 (6-20) Total Bilirubin 0.8 mg/dL (0.2-1.0) Aspartate Amino Transf (AST/SGOT) 26 U/L (15-37) Alanine Aminotransferase (ALT/SGPT) 23 U/L (14-59) Alkaline Phosphatase 108 U/L (46-116) Total Protein 7.8 g/dL (6.4-8.2) Albumin 3.2 g/dL (3.4-5.0) Albumin/Globulin Ratio 0.7 (1.0-1.7) Medications Current Medications Sodium Chloride 1,000 ml @ 125 mls/hr 1X ONCE IV Last administered on 22:20; Start 02/09/17 at 21:45; Stop 02/10/17 at 05:44; Status DC Naloxone HCl (Narcan) 0.4 mg 1X ONCE IV Last administered on 02/09/17 22:22 ; Start 02/09/17 at 22:00; Stop 02/09/17 at 22:01; Status DC Ondansetron HCl (Zofran) 4 mg PRN Q8HRS PRN IV NAUSEA/VOMITING; Start at 23:30; Stop 02/10/17 at 23:29; Status DC Sodium Chloride 1,000 ml @ 125 mls/hr Q8H IV Last administered on 02/10/17 18:30; Start 02/09/17 at 23:30; Stop 02/10/17 at 23:29; Status DC Naloxone HCl (Narcan) 0.4 mg PRN Q2MIN PRN IV SEE COMMENTS; Start 02/09/17 at 23:30 Acetaminophen (Tylenol) 650 mg PRN Q4HRS PRN PO MILD PAIN Last administered on 02/13/17 12:24; Start 02/10/17 at 22:45 Amlodipine Besylate (Norvasc) 10 mg NOON PO Last administered on 02/13/17 12: 25; Start 02/11/17 at 12:00 Apixaban (Eliquis) 5 mg BID PO Last administered on 02/13/17 08:49; Start at 11:30 Aspirin (Children'S Aspirin) 81 mg DAILY PO Last administered on 02/13/17 08: 49; Start 02/11/17 at 11:30 Furosemide (Lasix) 40 mg DAILY PO Last administered on 02/13/17 08:49; Start 02/11/17 at 11:30 Latanoprost (Xalatan) 1 drop HS OU Last administered on 02/12/17 20:40; Start 02/11/17 at 21:00 Pantoprazole Sodium (Protonix) 40 mg DAILYAC PO Last administered on 08:49; Start 02/11/17 at 11:30 Polyethylene Glycol (miraLAX PACKET) 17 gm DAILY PO Last administered on 08:48; Start 02/11/17 at 11:30 Non-Formulary Medication 40 mg DAILY SQ ; Start 02/11/17 at 09:00; Status UNV Non-Formulary Medication 72 mcg DAILY PO ; Start 02/11/17 at 09:00; Status UNV Morphine Sulfate (Ms Contin) 60 mg BID PO Last administered on 02/13/17 08:50 ; Start 02/11/17 at 11:30 Ondansetron HCl (Zofran Odt) 4 mg PRN Q4HRS PRN PO NAUSEA/VOMITING Last administered on 02/11/17 14:40; Start 02/11/17 at 11:00 Potassium Chloride (Klor-Con) 20 meq DAILYWBKFT PO Last administered on 08:49; Start 02/11/17 at 11:30 Venlafaxine HCl (Effexor) 50 mg TID PO Last administered on 02/13/17 08:48; Start 02/11/17 at 14:00 Albuterol Sulfate (Ventolin Neb Soln) 2.5 mg PRN QID PRN NEB SHORTNESS OF BREATH; Start 02/11/17 at 11:00 Info (Anti-Coagulation Monitoring By Pharmacy) 1 each PRN DAILY PRN MC SEE COMMENTS Last administered on 02/12/17 16:25; Start 02/11/17 at 15:00 Ondansetron HCl (Zofran) 4 mg PRN Q4HRS PRN IV NAUSEA/VOMITING; Start at 17:30 Potassium Chloride (Klor-Con) 40 meq 1X ONCE PO Last administered on 06:12; Start 02/12/17 at 06:30; Stop 02/12/17 at 06:31; Status DC Lisinopril (Prinivil) 20 mg DAILY PO Last administered on 02/13/17 08:50; Start 02/12/17 at 10:00 Potassium Chloride (Klor-Con) 40 meq 1X ONCE PO Last administered on 16:46; Start 02/12/17 at 14:45; Stop 02/12/17 at 14:46; Status DC Active Scripts Active Ambien (Zolpidem Tartrate) 5 Mg Tablet 5 Mg PO PRN QHS PRN 30 Days Polyethylene Glycol 3350 17 Gm Powd.pack 17 Gm PO DAILY 30 Days Effexor Xr (Venlafaxine Hcl) 150 Mg Cap.er.24h 1 Cap PO DAILY [Lisinopril] 40 MG Tablet 40 Mg PO DAILY [Albuterol Sulfate] 2.5 MG/3 ML Nebu 2.5 Mg NEB RTQID PRN Norvasc (Amlodipine Besylate) 10 Mg Tablet 10 Mg PO NOON Reported Hydrocodone-Apap 10-325 (Hydrocodone Bit/Acetaminophen) 1 Each Tablet 1 Tab PO PRN Q4HRS PRN Alprazolam 0.5 Mg Tablet 1 Tab PO HS [venlafaxine HCL] 100 Mg PO DAILY Protonix (Pantoprazole Sodium) 40 Mg Tablet.dr 40 Mg PO BID Potassium Chloride 20 Meq Tablet.er 20 Meq PO DAILY Ondansetron Hcl 4 Mg Tablet 4 Mg PO Q4HRS PRN Morphine Sulfate Er (Morphine Sulfate) 60 Mg Tablet.er 1 Tab PO BID Metoprolol Tartrate 50 Mg Tablet 1 Tab PO BID Methotrexate (Methotrexate Sodium) 2.5 Mg Tablet 3 Tab PO WEEKLY every Wednesday Linzess (Linaclotide) 72 Mcg Capsule 72 Mcg PO DAILY Ferrous Sulfate 325 Mg Tablet 1 Tab PO BID Gabapentin 100 Mg Capsule 100 Mg PO AFTRNOON Gabapentin 300 Mg Capsule 300 Mg PO HS Gabapentin 100 Mg Capsule 100 Mg PO DAILY07 Flomax (Tamsulosin Hcl) 0.4 Mg Cap.er.24h 1 Cap PO DAILY Vitamin D2 (Ergocalciferol (Vitamin D2)) 50,000 Unit Capsule 1 Cap PO DAILY Sore Throat Lozenge (Benzocaine/Menthol) 1 Each Lozenge 1 Each MM Q2HR PRN Carafate (Sucralfate) 1 Gm Tablet 1 Tab PO QID Buspirone Hcl 10 Mg Tablet 20 Mg PO TID Biofreeze (Menthol) 118 Ml Gel..ml. 118 Ml TP PRN PRN Furosemide 20 Mg Tablet 40 Mg PO DAILY Cyclobenzaprine Hcl 10 Mg Tablet 10 Mg PO PRN Q8HRS PRN Humira (Adalimumab) 40 Mg/0.8 Ml Kit 40 Mg SQ DAILY Eliquis (Apixaban) 5 Mg Tablet 5 Mg PO BID Aspirin 81 Mg Tab.chew 81 Mg PO Timoptic 0.5% Ocudose Drop (Timolol Maleate/Pf) 1 Each Droperette 1 Each OP Pantoprazole Sodium 40 Mg Tablet.dr 40 Mg PO DAILY Latanoprost 2.5 Ml Drops 1 Drop OP HS Folic Acid 1 Mg Tablet 1 Mg PO DAILY Vitals/I & O Vital Sign - Last 24 Hours 02/12/17 02/12/17 02/12/17 02/12/17 15:00 19:00 20:00 20:39 Temp 97.7 98.1 97.7 98.1 Pulse 65 67 Resp 20 18 B/P (MAP) 155/84 (107) 164/98 (120) Pulse Ox 95 97 97 O2 Delivery Room Air Room Air Room Air Room Air O2 Flow Rate 2.0 02/12/17 02/13/17 02/13/17 02/13/17 23:59 00:39 00:50 03:22 Temp 97.9 97.1 97.9 97.1 Pulse 63 62 Resp 18 18 B/P (MAP) 143/75 (97) 156/82 (106) Pulse Ox 99 99 96 O2 Delivery Room Air Room Air Room Air Room Air O2 Flow Rate 2.0 02/13/17 02/13/17 02/13/17 02/13/17 07:00 08:50 08:50 10:47 Temp 98.1 98.6 98.1 98.6 Pulse 66 66 62 Resp 17 20 17 B/P (MAP) 157/85 (109) 157/85 150/77 (101) Pulse Ox 96 93 94 O2 Delivery Room Air Room Air Room Air 02/13/17 12:25 Pulse 62 B/P (MAP) 150/77 Intake and Output 02/12/17 02/12/17 02/13/17 15:00 23:00 07:00 Intake Total 1100 ml 200 ml Output Total 200 ml 250 ml Balance 900 ml -50 ml SHELDON FUENTES MD Feb 13, 2017 13:05
--- NOTE | 2017-02-13 14:06 | PDOC ---
G I PROGRESS NOTE Reason for Follow-up Abd pain/N/V Subjective Tolerating PO Physical Exam Lungs clear CV S1 S2 ABD +BS< soft, nontender Review of Relevant I have reviewed the following items oswaldo (where applicable) has been applied. Labs Laboratory Tests Test 02/12/17 04:00 02/12/17 13:10 02/13/17 04:55 Sodium Level 139 mmol/L (136-145) 138 mmol/L (136-145) 139 mmol/L (136-145) Potassium Level 2.8 mmol/L (3.5-5.1) 3.2 mmol/L (3.5-5.1) 3.5 mmol/L (3.5-5.1) Chloride Level 99 mmol/L (98-107) 97 mmol/L (98-107) 100 mmol/L (98-107) Carbon Dioxide Level 31 mmol/L (21-32) 31 mmol/L (21-32) 30 mmol/L (21-32) Anion Gap 9 (6-14) 10 (6-14) 9 (6-14) Blood Urea Nitrogen 10 mg/dL (7-20) 10 mg/dL (7-20) 12 mg/dL (7-20) Creatinine 0.8 mg/dL (0.6-1.0) 0.7 mg/dL (0.6-1.0) 0.8 mg/dL (0.6-1.0) Estimated GFR (Cockcroft-Gault) 85.3 99.5 85.3 Glucose Level 94 mg/dL (70-99) 98 mg/dL (70-99) 86 mg/dL (70-99) Calcium Level 8.8 mg/dL (8.5-10.1) 8.8 mg/dL (8.5-10.1) 8.7 mg/dL (8.5-10.1) White Blood Count 5.3 x10^3/uL (4.0-11.0) Red Blood Count 4.47 x10^6/uL (3.50-5.40) Hemoglobin 12.9 g/dL (12.0-15.5) Hematocrit 39.6 % (36.0-47.0) Mean Corpuscular Volume 89 fL (79-100) Mean Corpuscular Hemoglobin 29 pg (25-35) Mean Corpuscular Hemoglobin Concent 33 g/dL (31-37) Red Cell Distribution Width 19.3 % (11.5-14.5) Platelet Count 192 x10^3/uL (140-400) Neutrophils (%) (Auto) 38 % (31-73) Lymphocytes (%) (Auto) 43 % (24-48) Monocytes (%) (Auto) 13 % (0-9) Eosinophils (%) (Auto) 5 % (0-3) Basophils (%) (Auto) 1 % (0-3) Neutrophils # (Auto) 2.0 x10^3uL (1.8-7.7) Lymphocytes # (Auto) 2.3 x10^3/uL (1.0-4.8) Monocytes # (Auto) 0.7 x10^3/uL (0.0-1.1) Eosinophils # (Auto) 0.3 x10^3/uL (0.0-0.7) Basophils # (Auto) 0.1 x10^3/uL (0.0-0.2) BUN/Creatinine Ratio 15 (6-20) Total Bilirubin 0.8 mg/dL (0.2-1.0) Aspartate Amino Transf (AST/SGOT) 26 U/L (15-37) Alanine Aminotransferase (ALT/SGPT) 23 U/L (14-59) Alkaline Phosphatase 108 U/L (46-116) Total Protein 7.8 g/dL (6.4-8.2) Albumin 3.2 g/dL (3.4-5.0) Albumin/Globulin Ratio 0.7 (1.0-1.7) Laboratory Tests Test 02/13/17 04:55 White Blood Count 5.3 x10^3/uL (4.0-11.0) Red Blood Count 4.47 x10^6/uL (3.50-5.40) Hemoglobin 12.9 g/dL (12.0-15.5) Hematocrit 39.6 % (36.0-47.0) Mean Corpuscular Volume 89 fL (79-100) Mean Corpuscular Hemoglobin 29 pg (25-35) Mean Corpuscular Hemoglobin Concent 33 g/dL (31-37) Red Cell Distribution Width 19.3 % (11.5-14.5) Platelet Count 192 x10^3/uL (140-400) Neutrophils (%) (Auto) 38 % (31-73) Lymphocytes (%) (Auto) 43 % (24-48) Monocytes (%) (Auto) 13 % (0-9) Eosinophils (%) (Auto) 5 % (0-3) Basophils (%) (Auto) 1 % (0-3) Neutrophils # (Auto) 2.0 x10^3uL (1.8-7.7) Lymphocytes # (Auto) 2.3 x10^3/uL (1.0-4.8) Monocytes # (Auto) 0.7 x10^3/uL (0.0-1.1) Eosinophils # (Auto) 0.3 x10^3/uL (0.0-0.7) Basophils # (Auto) 0.1 x10^3/uL (0.0-0.2) Sodium Level 139 mmol/L (136-145) Potassium Level 3.5 mmol/L (3.5-5.1) Chloride Level 100 mmol/L (98-107) Carbon Dioxide Level 30 mmol/L (21-32) Anion Gap 9 (6-14) Blood Urea Nitrogen 12 mg/dL (7-20) Creatinine 0.8 mg/dL (0.6-1.0) Estimated GFR (Cockcroft-Gault) 85.3 BUN/Creatinine Ratio 15 (6-20) Glucose Level 86 mg/dL (70-99) Calcium Level 8.7 mg/dL (8.5-10.1) Total Bilirubin 0.8 mg/dL (0.2-1.0) Aspartate Amino Transf (AST/SGOT) 26 U/L (15-37) Alanine Aminotransferase (ALT/SGPT) 23 U/L (14-59) Alkaline Phosphatase 108 U/L (46-116) Total Protein 7.8 g/dL (6.4-8.2) Albumin 3.2 g/dL (3.4-5.0) Albumin/Globulin Ratio 0.7 (1.0-1.7) Medications Current Medications Sodium Chloride 1,000 ml @ 125 mls/hr 1X ONCE IV Last administered on t 22:20; Start 02/09/17 at 21:45; Stop 02/10/17 at 05:44; Status DC Naloxone HCl (Narcan) 0.4 mg 1X ONCE IV Last administered on 02/09/17 22:22 ; Start 02/09/17 at 22:00; Stop 02/09/17 at 22:01; Status DC Ondansetron HCl (Zofran) 4 mg PRN Q8HRS PRN IV NAUSEA/VOMITING; Start at 23:30; Stop 02/10/17 at 23:29; Status DC Sodium Chloride 1,000 ml @ 125 mls/hr Q8H IV Last administered on 02/10/17 18:30; Start 02/09/17 at 23:30; Stop 02/10/17 at 23:29; Status DC Naloxone HCl (Narcan) 0.4 mg PRN Q2MIN PRN IV SEE COMMENTS; Start 02/09/17 at 23:30 Acetaminophen (Tylenol) 650 mg PRN Q4HRS PRN PO MILD PAIN Last administered on 02/13/17 12:24; Start 02/10/17 at 22:45 Amlodipine Besylate (Norvasc) 10 mg NOON PO Last administered on 02/13/17 12: 25; Start 02/11/17 at 12:00 Apixaban (Eliquis) 5 mg BID PO Last administered on 02/13/17 08:49; Start at 11:30 Aspirin (Children'S Aspirin) 81 mg DAILY PO Last administered on 02/13/17 08: 49; Start 02/11/17 at 11:30 Furosemide (Lasix) 40 mg DAILY PO Last administered on 02/13/17 08:49; Start 02/11/17 at 11:30 Latanoprost (Xalatan) 1 drop HS OU Last administered on 02/12/17 20:40; Start 02/11/17 at 21:00 Pantoprazole Sodium (Protonix) 40 mg DAILYAC PO Last administered on 08:49; Start 02/11/17 at 11:30 Polyethylene Glycol (miraLAX PACKET) 17 gm DAILY PO Last administered on 08:48; Start 02/11/17 at 11:30 Non-Formulary Medication 40 mg DAILY SQ ; Start 02/11/17 at 09:00; Status UNV Non-Formulary Medication 72 mcg DAILY PO ; Start 02/11/17 at 09:00; Status UNV Morphine Sulfate (Ms Contin) 60 mg BID PO Last administered on 02/13/17 08:50 ; Start 02/11/17 at 11:30 Ondansetron HCl (Zofran Odt) 4 mg PRN Q4HRS PRN PO NAUSEA/VOMITING Last administered on 02/11/17 14:40; Start 02/11/17 at 11:00 Potassium Chloride (Klor-Con) 20 meq DAILYWBKFT PO Last administered on 08:49; Start 02/11/17 at 11:30 Venlafaxine HCl (Effexor) 50 mg TID PO Last administered on 02/13/17 08:48; Start 02/11/17 at 14:00 Albuterol Sulfate (Ventolin Neb Soln) 2.5 mg PRN QID PRN NEB SHORTNESS OF BREATH; Start 02/11/17 at 11:00 Info (Anti-Coagulation Monitoring By Pharmacy) 1 each PRN DAILY PRN MC SEE COMMENTS Last administered on 02/12/17 16:25; Start 02/11/17 at 15:00 Ondansetron HCl (Zofran) 4 mg PRN Q4HRS PRN IV NAUSEA/VOMITING; Start at 17:30 Potassium Chloride (Klor-Con) 40 meq 1X ONCE PO Last administered on 06:12; Start 02/12/17 at 06:30; Stop 02/12/17 at 06:31; Status DC Lisinopril (Prinivil) 20 mg DAILY PO Last administered on 02/13/17 08:50; Start 02/12/17 at 10:00 Potassium Chloride (Klor-Con) 40 meq 1X ONCE PO Last administered on 16:46; Start 02/12/17 at 14:45; Stop 02/12/17 at 14:46; Status DC Active Scripts Active Ambien (Zolpidem Tartrate) 5 Mg Tablet 5 Mg PO PRN QHS PRN 30 Days Polyethylene Glycol 3350 17 Gm Powd.pack 17 Gm PO DAILY 30 Days Effexor Xr (Venlafaxine Hcl) 150 Mg Cap.er.24h 1 Cap PO DAILY [Lisinopril] 40 MG Tablet 40 Mg PO DAILY [Albuterol Sulfate] 2.5 MG/3 ML Nebu 2.5 Mg NEB RTQID PRN Norvasc (Amlodipine Besylate) 10 Mg Tablet 10 Mg PO NOON Reported Hydrocodone-Apap 10-325 (Hydrocodone Bit/Acetaminophen) 1 Each Tablet 1 Tab PO PRN Q4HRS PRN Alprazolam 0.5 Mg Tablet 1 Tab PO HS [venlafaxine HCL] 100 Mg PO DAILY Protonix (Pantoprazole Sodium) 40 Mg Tablet.dr 40 Mg PO BID Potassium Chloride 20 Meq Tablet.er 20 Meq PO DAILY Ondansetron Hcl 4 Mg Tablet 4 Mg PO Q4HRS PRN Morphine Sulfate Er (Morphine Sulfate) 60 Mg Tablet.er 1 Tab PO BID Metoprolol Tartrate 50 Mg Tablet 1 Tab PO BID Methotrexate (Methotrexate Sodium) 2.5 Mg Tablet 3 Tab PO WEEKLY every Wednesday Linzess (Linaclotide) 72 Mcg Capsule 72 Mcg PO DAILY Ferrous Sulfate 325 Mg Tablet 1 Tab PO BID Gabapentin 100 Mg Capsule 100 Mg PO AFTRNOON Gabapentin 300 Mg Capsule 300 Mg PO HS Gabapentin 100 Mg Capsule 100 Mg PO DAILY07 Flomax (Tamsulosin Hcl) 0.4 Mg Cap.er.24h 1 Cap PO DAILY Vitamin D2 (Ergocalciferol (Vitamin D2)) 50,000 Unit Capsule 1 Cap PO DAILY Sore Throat Lozenge (Benzocaine/Menthol) 1 Each Lozenge 1 Each MM Q2HR PRN Carafate (Sucralfate) 1 Gm Tablet 1 Tab PO QID Buspirone Hcl 10 Mg Tablet 20 Mg PO TID Biofreeze (Menthol) 118 Ml Gel..ml. 118 Ml TP PRN PRN Furosemide 20 Mg Tablet 40 Mg PO DAILY Cyclobenzaprine Hcl 10 Mg Tablet 10 Mg PO PRN Q8HRS PRN Humira (Adalimumab) 40 Mg/0.8 Ml Kit 40 Mg SQ DAILY Eliquis (Apixaban) 5 Mg Tablet 5 Mg PO BID Aspirin 81 Mg Tab.chew 81 Mg PO Timoptic 0.5% Ocudose Drop (Timolol Maleate/Pf) 1 Each Droperette 1 Each OP Pantoprazole Sodium 40 Mg Tablet.dr 40 Mg PO DAILY Latanoprost 2.5 Ml Drops 1 Drop OP HS Folic Acid 1 Mg Tablet 1 Mg PO DAILY Vitals/I & O Vital Sign - Last 24 Hours 02/12/17 02/12/17 02/12/17 02/12/17 15:00 19:00 20:00 20:39 Temp 97.7 98.1 97.7 98.1 Pulse 65 67 Resp 20 18 B/P (MAP) 155/84 (107) 164/98 (120) Pulse Ox 95 97 97 O2 Delivery Room Air Room Air Room Air Room Air O2 Flow Rate 2.0 02/12/17 02/13/17 02/13/17 02/13/17 23:59 00:39 00:50 03:22 Temp 97.9 97.1 97.9 97.1 Pulse 63 62 Resp 18 18 B/P (MAP) 143/75 (97) 156/82 (106) Pulse Ox 99 99 96 O2 Delivery Room Air Room Air Room Air Room Air O2 Flow Rate 2.0 02/13/17 02/13/17 02/13/17 02/13/17 07:00 08:50 08:50 10:47 Temp 98.1 98.6 98.1 98.6 Pulse 66 66 62 Resp 17 B/P (MAP) 157/85 (109) 157/85 150/77 (101) Pulse Ox 96 93 94 O2 Delivery Room Air Room Air Room Air 02/13/17 12:25 Pulse 62 B/P (MAP) 150/77 Intake and Output 02/12/17 02/12/17 02/13/17 15:00 23:00 07:00 Intake Total 1100 ml 200 ml Output Total 200 ml 250 ml Balance 900 ml -50 ml Problem List Problems Medical Problems: (1) Acute renal failure Status: Acute (2) Opioid overdose Status: Acute Assessment ABd pain- with N/V, most likely multifactorial S/P jose miguel and normal GES, medication side effectpossible, No additional GI recommendations at this time. GALDINO WHEELER MD Feb 13, 2017 14:06
[2017-02-13] MEDS: ANTI-COAG MONITOR BY PHARMACY. MC PRN (15:45)
[2017-02-13] MEDS: LATANOPROST 0.005% OPHTH SOLUTION 2.5ML BOTTLE. OU SCH (21:00)
[2017-02-14 03:10] VITALS: BP 141/83
[2017-02-14 07:00] VITALS: BP 172/90
--- NOTE | 2017-02-14 07:05 | PDOC ---
SUBJECTIVE Subjective stable OBJECTIVE Vital Signs Vital Signs Date Time Temp Pulse Resp B/P (MAP) Pulse Ox O2 Delivery O2 Flow Rate FiO2 02/14/17 03:10 97.3 62 18 141/83 (102) 92 Room Air 97.3 02/13/17 23:14 98.2 61 18 146/81 (102) 100 Room Air 98.2 02/13/17 20:21 92 Room Air 2.0 02/13/17 20:00 Room Air 02/13/17 19:08 98.2 67 18 156/77 (103) 94 Room Air 98.2 02/13/17 15:00 98.2 63 17 145/79 (101) 92 Nasal Cannula 98.2 02/13/17 13:00 20 93 Room Air 02/13/17 12:25 62 150/77 02/13/17 10:47 98.6 62 17 150/77 (101) 94 Room Air 98.6 02/13/17 08:50 66 157/85 02/13/17 08:50 20 93 Room Air 02/13/17 08:00 Room Air 2.0 I & O Intake and Output 02/14/17 07:00 Intake Total 640 ml Output Total 1 ml Balance 639 ml Intake Oral 640 ml Urine/Stool Mix 1 ml # Voids 4 PHYSICAL EXAM Physical Exam lungs clearer heart RRR abd soft ext no edema ASSESSMENT/PLAN Assessment/Plan 1- MS changes.improved 2-Metabolic encephalopathy. 3- Generalized weakness.start PT 4-Renal failure. 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 9-Benzo and opiate use. 10-Lymphedema, LE. 11-Obesity. 12- hypokalemia replaced discharge soon Problems: MEGA MORELOS MD Feb 14, 2017 07:05
[2017-02-14 07:31] LABS: HEMATOCRIT 41.5 % (36.0-47.0); HEMOGLOBIN 13.6 g/dL (12.0-15.5); RED BLOOD COUNT 4.72 x10^6/uL (3.50-5.40); RED CELL DISTRIBUTION WIDTH 19.4 % (11.5-14.5); WHITE BLOOD COUNT 5.4 x10^3/uL (4.0-11.0)
[2017-02-14 07:57] LABS: ALBUMIN 3.3 g/dL (3.4-5.0); ALBUMIN/GLOBULIN RATIO 0.7 (1.0-1.7); CALCIUM 9.3 mg/dL (8.5-10.1); CREATININE 0.8 mg/dL (0.6-1.0); GFR 85.3; POTASSIUM 3.2 mmol/L (3.5-5.1); TOTAL BILIRUBIN 0.8 mg/dL (0.2-1.0); TOTAL PROTEIN 8.3 g/dL (6.4-8.2)
[2017-02-14] MEDS: POTASSIUM CHLORIDE 20 MEQ TABLET.ER. PO SCH (08:35)
[2017-02-14] MEDS: PANTOPRAZOLE 40 MG TABLET.DR. PO SCH (08:35)
[2017-02-14] MEDS: MORPHINE ER 30 MG TABLET.ER PO SCH ×2 (08:35→20:06)
[2017-02-14] MEDS: LISINOPRIL 20 MG TABLET PO SCH (08:35)
[2017-02-14] MEDS: POLYETHYLENE GLYCOL 3350 17 GM PACKET. PO SCH (08:36)
[2017-02-14] MEDS: ASPIRIN CHEWABLE 81 MG TABLET. PO SCH (08:36)
[2017-02-14] MEDS: FUROSEMIDE 40 MG TABLET. PO SCH (08:36)
[2017-02-14] MEDS: VENLAFAXINE 50 MG TABLET. PO SCH ×3 (08:36→20:05)
[2017-02-14] MEDS: APIXABAN 5 MG TABLET. PO SCH ×2 (08:36→20:06)
[2017-02-14] MEDS: NON FORMULARY ITEM (Adalimumab (Humira) 40 MG) SQ SCH (09:00)
[2017-02-14] MEDS: LINACLOTIDE 72 MCG PO SCH (09:00)
[2017-02-14 11:09] VITALS: BP 158/84
[2017-02-14] MEDS: ACETAMINOPHEN 325 MG TABLET. PO PRN (12:52)
[2017-02-14] MEDS: amLODIPine BESYLATE 10 MG TABLET PO SCH (12:52)
[2017-02-14] MEDS: ANTI-COAG MONITOR BY PHARMACY. MC PRN (14:33)
[2017-02-14 15:00] VITALS: BP 128/87
[2017-02-14 19:00] VITALS: BP 117/78
[2017-02-14] MEDS: LATANOPROST 0.005% OPHTH SOLUTION 2.5ML BOTTLE. OU SCH (20:06)
[2017-02-14 22:55] VITALS: BP 121/82
[2017-02-15 03:03] VITALS: BP 117/71
[2017-02-15 07:00] VITALS: BP 140/74
[2017-02-15 07:21] LABS: HEMATOCRIT 40.8 % (36.0-47.0); HEMOGLOBIN 13.5 g/dL (12.0-15.5); RED BLOOD COUNT 4.64 x10^6/uL (3.50-5.40); RED CELL DISTRIBUTION WIDTH 19.7 % (11.5-14.5); WHITE BLOOD COUNT 7.4 x10^3/uL (4.0-11.0)
[2017-02-15 07:41] LABS: CALCIUM 9.4 mg/dL (8.5-10.1); GFR 65.9; POTASSIUM 3.3 mmol/L (3.5-5.1)
--- NOTE | 2017-02-15 08:42 | PDOC ---
SUBJECTIVE Subjective doing better every day , no new complaints OBJECTIVE Vital Signs Vital Signs Date Time Temp Pulse Resp B/P (MAP) Pulse Ox O2 Delivery O2 Flow Rate FiO2 02/15/17 07:00 97.7 61 16 140/74 (96) 93 Room Air 97.7 02/15/17 03:03 97.6 59 20 117/71 (86) 95 Room Air 97.6 02/15/17 00:21 20 Room Air 02/14/17 22:55 97.1 63 18 121/82 (95) 95 Room Air 97.1 02/14/17 20:06 18 Room Air 02/14/17 20:00 Room Air 02/14/17 19:00 98.9 68 19 117/78 (91) 95 Room Air 98.9 02/14/17 15:00 97.8 63 20 128/87 (101) 97 Room Air 97.8 02/14/17 13:50 95 2.0 02/14/17 12:52 63 158/84 02/14/17 11:09 97.8 63 20 158/84 (108) 95 Room Air 97.8 I & O Intake and Output 02/15/17 07:00 Intake Total 1520 ml Balance 1520 ml Intake Oral 1520 ml # Voids 4 PHYSICAL EXAM Physical Exam stable , no change ASSESSMENT/PLAN Assessment/Plan stable , back to [facility] , reviewed medication Problems: COMMENT Lab Laboratory Tests Test 02/15/17 07:10 White Blood Count 7.4 x10^3/uL (4.0-11.0) Red Blood Count 4.64 x10^6/uL (3.50-5.40) Hemoglobin 13.5 g/dL (12.0-15.5) Hematocrit 40.8 % (36.0-47.0) Mean Corpuscular Volume 88 fL (79-100) Mean Corpuscular Hemoglobin 29 pg (25-35) Mean Corpuscular Hemoglobin Concent 33 g/dL (31-37) Red Cell Distribution Width 19.7 % (11.5-14.5) Platelet Count 204 x10^3/uL (140-400) Sodium Level 139 mmol/L (136-145) Potassium Level 3.3 mmol/L (3.5-5.1) Chloride Level 99 mmol/L (98-107) Carbon Dioxide Level 31 mmol/L (21-32) Anion Gap 9 (6-14) Blood Urea Nitrogen 17 mg/dL (7-20) Creatinine 1.0 mg/dL (0.6-1.0) Estimated GFR (Cockcroft-Gault) 65.9 Glucose Level 98 mg/dL (70-99) Calcium Level 9.4 mg/dL (8.5-10.1) MEGA MORELOS MD Feb 15, 2017 08:42
[2017-02-15] MEDS ORDERED: POTASSIUM CHLORIDE 20 MEQ TABLET.ER. PO ONE (08:45)
--- NOTE | 2017-02-15 08:55 | PDOC3 ---
*Discharge Summary* Date of Admission: Feb 09, 2017 Date of Discharge: Feb 15, 2017 Admitting Diagnosis Problems Medical Problems: (1) Acute renal failure Status: Acute (2) Opioid overdose Status: Acute Problems: Final Diagnosis 1-acute Renal failure resolved, opoid OD due to renal failure 2-Metabolic encephalopathy. 3- Generalized weakness. 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 9-Benzo and opiate use. 10-Lymphedema, LE. 11-Obesity. 12- hypokalemia replaced 13- abdominal pain / constipation Problems Medical Problems: (1) Acute renal failure Status: Acute (2) Opioid overdose Status: Acute CONSULTS neurology, Renal, GI Procedures CXR, CT head and C spine, CT abd and pelvis, gastric emptying study, venous doppler US LE Brief Hospital Course Ms. Mitchell is a 71 old [sex] who presented with [ ] Disposition/Orders: D/C to Another Facility CONDITION AT DISCHARGE: Improved, Stable Diet: Cardiac Home Meds Active Scripts Zolpidem Tartrate (AMBIEN) 5 Mg Tablet, 5 MG PO PRN QHS Y for INSOMNIA for 30 Days, TAB Prov:HORACE BARNES MD 10/21/16 Polyethylene Glycol 3350 (POLYETHYLENE GLYCOL 3350) 17 Gm Powd.pack, 17 GM PO DAILY for 30 Days, #30 PKT Prov:HORACE BARNES MD 10/21/16 Venlafaxine Hcl (EFFEXOR XR) 150 Mg Cap.er.24h, 1 CAP PO DAILY, #30 CAP 1 Refill Prov:HORACE BARNES MD 10/20/16 [Lisinopril] 40 MG TABLET No Conflict Check, 40 MG PO DAILY Prov:HORACE BARNES MD 09/20/13 [Albuterol Sulfate] 2.5 MG/3 ML NEBU No Conflict Check, 2.5 MG NEB RTQID Y for SHORTNESS OF BREATH Prov:HORACE BARNES MD 09/20/13 Amlodipine Besylate (NORVASC) 10 Mg Tablet, 10 MG PO NOON, #30 TAB Prov:HORACE BARNES MD 09/20/13 Reported Medications Hydrocodone Bit/Acetaminophen (HYDROCODONE-APAP 10-325 ) 1 Each Tablet, 1 TAB PO PRN Q4HRS Y for PAIN, TAB 0 Refills 02/10/17 Alprazolam (ALPRAZOLAM) 0.5 Mg Tablet, 1 TAB PO HS, #30 TAB 02/10/17 [venlafaxine HCL] No Conflict Check, 100 MG PO DAILY 02/10/17 Pantoprazole Sodium (PROTONIX) 40 Mg Tablet.dr, 40 MG PO BID, TAB 02/10/17 Potassium Chloride (POTASSIUM CHLORIDE) 20 Meq Tablet.er, 20 MEQ PO DAILY, TAB.SR 02/10/17 Ondansetron Hcl (ONDANSETRON HCL) 4 Mg Tablet, 4 MG PO Q4HRS Y for NAUSEA/ VOMITING, TAB 02/10/17 Morphine Sulfate (MORPHINE SULFATE ER) 60 Mg Tablet.er, 1 TAB PO BID, #60 TAB 02/10/17 Metoprolol Tartrate (METOPROLOL TARTRATE) 50 Mg Tablet, 1 TAB PO BID, #60 TAB 5 Refills 02/10/17 Methotrexate Sodium (METHOTREXATE) 2.5 Mg Tablet, 3 TAB PO WEEKLY, #24 TAB 1 Refill every Wednesday02/10/17 Linaclotide (Linzess) 72 Mcg Capsule, 72 MCG PO DAILY, CAP 02/10/17 Ferrous Sulfate (FERROUS SULFATE) 325 Mg Tablet, 1 TAB PO BID, #60 TAB 3 Refills 02/10/17 Gabapentin (GABAPENTIN) 100 Mg Capsule, 100 MG PO AFTRNOON, CAP 02/10/17 Gabapentin (GABAPENTIN) 300 Mg Capsule, 300 MG PO HS for PAIN, CAP 02/10/17 Gabapentin (GABAPENTIN) 100 Mg Capsule, 100 MG PO DAILY07, CAP 02/10/17 Tamsulosin Hcl (FLOMAX) 0.4 Mg Cap.er.24h, 1 CAP PO DAILY, #30 CAP 11 Refills 02/10/17 Ergocalciferol (Vitamin D2) (VITAMIN D2) 50,000 Unit Capsule, 1 CAP PO DAILY, # 4 CAP 5 Refills 02/10/17 Benzocaine/Menthol (SORE THROAT LOZENGE) 1 Each Lozenge, 1 EACH MM Q2HR Y for PAIN, LOZENGE 02/10/17 Sucralfate (CARAFATE) 1 Gm Tablet, 1 TAB PO QID for HEARTBURN / GAS, #120 TAB 1 Refill 02/10/17 Buspirone Hcl (BUSPIRONE HCL) 10 Mg Tablet, 20 MG PO TID for ANXIETY, TAB 02/10/17 Menthol (BIOFREEZE) 118 Ml Gel..ml., 118 ML TP PRN Y for PAIN, EACH 02/10/17 Furosemide (FUROSEMIDE) 20 Mg Tablet, 40 MG PO DAILY, TAB 06/15/16 Cyclobenzaprine Hcl (CYCLOBENZAPRINE HCL) 10 Mg Tablet, 10 MG PO PRN Q8HRS Y for MUSCLE SPASMS, TAB 06/15/16 Adalimumab (HUMIRA) 40 Mg/0.8 Ml Kit, 40 MG SQ DAILY, KIT 06/15/16 Apixaban (ELIQUIS) 5 Mg Tablet, 5 MG PO BID 06/15/16 Aspirin (ASPIRIN) 81 Mg Tab.chew, 81 MG PO, TAB.CHEW 12/10/13 Timolol Maleate/Pf (TIMOPTIC 0.5% OCUDOSE DROP) 1 Each Droperette, 1 EACH OP 09/15/13 Pantoprazole Sodium (PANTOPRAZOLE SODIUM) 40 Mg Tablet.dr, 40 MG PO DAILY, TAB 09/15/13 Latanoprost (LATANOPROST) 2.5 Ml Drops, 1 DROP OP HS, EACH 09/15/13 Folic Acid (FOLIC ACID) 1 Mg Tablet, 1 MG PO DAILY, TAB 09/15/13 Scheduled Adalimumab (Humira), 40 MG SQ DAILY, (Reported) Alprazolam (Alprazolam), 1 TAB PO HS, (Reported) Amlodipine Besylate (Norvasc), 10 MG PO NOON Apixaban (Eliquis), 5 MG PO BID, (Reported) Buspirone Hcl (Buspirone Hcl), 20 MG PO TID, (Reported) Ergocalciferol (Vitamin D2) (Vitamin D2), 1 CAP PO DAILY, (Reported) Ferrous Sulfate (Ferrous Sulfate), 1 TAB PO BID, (Reported) Folic Acid (Folic Acid), 1 MG PO DAILY, (Reported) Furosemide (Furosemide), 40 MG PO DAILY, (Reported) Gabapentin (Gabapentin), 100 MG PO DAILY07, (Reported) Gabapentin (Gabapentin), 300 MG PO HS, (Reported) Gabapentin (Gabapentin), 100 MG PO AFTRNOON, (Reported) Latanoprost (Latanoprost), 1 DROP OP HS, (Reported) Linaclotide (Linzess), 72 MCG PO DAILY, (Reported) Methotrexate Sodium (Methotrexate), 3 TAB PO WEEKLY, (Reported) Metoprolol Tartrate (Metoprolol Tartrate), 1 TAB PO BID, (Reported) Morphine Sulfate (Morphine Sulfate Er), 1 TAB PO BID, (Reported) Pantoprazole Sodium (Pantoprazole Sodium), 40 MG PO DAILY, (Reported) Pantoprazole Sodium (Protonix), 40 MG PO BID, (Reported) Polyethylene Glycol 3350 (Polyethylene Glycol 3350), 17 GM PO DAILY Potassium Chloride (Potassium Chloride), 20 MEQ PO DAILY, (Reported) Sucralfate (Carafate), 1 TAB PO QID, (Reported) Tamsulosin Hcl (Flomax), 1 CAP PO DAILY, (Reported) Venlafaxine Hcl (Effexor Xr), 1 CAP PO DAILY [Lisinopril], 40 MG PO DAILY [venlafaxine HCL], 100 MG PO DAILY, (Reported) Scheduled PRN Benzocaine/Menthol (Sore Throat Lozenge), 1 EACH MM Q2HR PRN for PAIN, (Reported ) Cyclobenzaprine Hcl (Cyclobenzaprine Hcl), 10 MG PO PRN Q8HRS PRN for MUSCLE SPASMS, (Reported) Hydrocodone Bit/Acetaminophen (Hydrocodone-Apap 10-325 ), 1 TAB PO PRN Q4HRS PRN for PAIN, (Reported) Menthol (Biofreeze), 118 ML TP PRN PRN for PAIN, (Reported) Ondansetron Hcl (Ondansetron Hcl), 4 MG PO Q4HRS PRN for NAUSEA/VOMITING, ( Reported) Zolpidem Tartrate (Ambien), 5 MG PO PRN QHS PRN for INSOMNIA [Albuterol Sulfate], 2.5 MG NEB RTQID PRN for SHORTNESS OF BREATH Miscellaneous Medications Aspirin (Aspirin), 81 MG PO, (Reported) Timolol Maleate/Pf (Timoptic 0.5% Ocudose Drop), 1 EACH OP, (Reported) FOLLOW UP APPOINTMENT: PCP 1 week Time Spent Total time spent with patient [] minutes for coordination of care, counseling, and education. MEGA MORELOS MD Feb 15, 2017 08:55
[2017-02-15] MEDS: VENLAFAXINE 50 MG TABLET. PO SCH ×3 (08:57→20:09)
[2017-02-15] MEDS: LISINOPRIL 20 MG TABLET PO SCH (08:58)
[2017-02-15] MEDS: FUROSEMIDE 40 MG TABLET. PO SCH (08:58)
[2017-02-15] MEDS: APIXABAN 5 MG TABLET. PO SCH ×2 (08:58→20:10)
[2017-02-15] MEDS: MORPHINE ER 30 MG TABLET.ER PO SCH ×2 (08:58→20:10)
[2017-02-15] MEDS: PANTOPRAZOLE 40 MG TABLET.DR. PO SCH (08:58)
[2017-02-15] MEDS: ASPIRIN CHEWABLE 81 MG TABLET. PO SCH (08:58)
[2017-02-15] MEDS: POTASSIUM CHLORIDE 20 MEQ TABLET.ER. PO SCH (08:59)
[2017-02-15] MEDS: NON FORMULARY ITEM (Adalimumab (Humira) 40 MG) SQ SCH (09:00)
[2017-02-15] MEDS: LINACLOTIDE 72 MCG PO SCH (09:00)
[2017-02-15] MEDS: POLYETHYLENE GLYCOL 3350 17 GM PACKET. PO SCH (09:00)
[2017-02-15] MEDS ORDERED: Lisinopril PO (09:04)
[2017-02-15 10:45] VITALS: BP 133/74
[2017-02-15] MEDS: amLODIPine BESYLATE 10 MG TABLET PO SCH (11:30)
[2017-02-15] MEDS: ACETAMINOPHEN 325 MG TABLET. PO PRN (13:29)
[2017-02-15 14:58] VITALS: BP 128/67
[2017-02-15 19:41] VITALS: BP 118/70
[2017-02-15] MEDS: LATANOPROST 0.005% OPHTH SOLUTION 2.5ML BOTTLE. OU SCH (20:10)
[2017-02-15 23:59] VITALS: BP 128/74
[2017-02-16 03:39] VITALS: BP 139/77
[2017-02-16 07:00] VITALS: BP 174/98
[2017-02-16] MEDS ORDERED: POTASSIUM CHLORIDE 20 MEQ TABLET.ER. PO SCH (08:00)
--- NOTE | 2017-02-16 08:39 | PDOC ---
GENERAL General: vss and afebrile. awake and alert and ros only positive for diffuse weakness. would benefit from snu at dc for strengthening. chest clear, heart regular, and abdomen with decreased tenderness. discharge summary from yesterday appropriate if dc today. Problems: VITAL SIGNS Vital Signs: Vital Signs Date Time Temp Pulse Resp B/P (MAP) Pulse Ox O2 Delivery O2 Flow Rate FiO2 02/16/17 03:39 97.5 61 18 139/77 (97) 94 Room Air 97.5 02/15/17 12:58 2.0 I & O I & O Intake and Output 02/16/17 07:00 Intake Total 360 ml Balance 360 ml Intake Oral 360 ml # Voids 4 ALLERGIES Allergies: Allergies Coded Allergies Type Severity Reaction Last Updated Verified Penicillins Allergy Intermediate hives 10/19/16 Yes orange juice Allergy Intermediate 02/10/17 Yes MEDS Medications: Current Medications Medications (Trade) Dose Ordered Sig/Celina Start Time Stop Time Status Last Admin Dose Admin Acetaminophen (Tylenol) 650 mg PRN Q4HRS PRN 02/10/17 22:45 02/15/17 13:29 650 MG Albuterol Sulfate (Ventolin Neb Soln) 2.5 mg PRN QID PRN 02/11/17 11:00 Amlodipine Besylate (Norvasc) 10 mg NOON 02/11/17 12:00 02/15/17 11:30 10 MG Apixaban (Eliquis) 5 mg BID 02/11/17 11:30 02/15/17 20:10 5 MG Aspirin (Children'S Aspirin) 81 mg DAILY 02/11/17 11:30 02/15/17 08:58 81 MG Furosemide (Lasix) 40 mg DAILY 02/11/17 11:30 02/15/17 08:58 40 MG Info (Anti-Coagulation Monitoring By Pharmacy) 1 each PRN DAILY PRN 02/11/17 15:00 02/14/17 14:33 1 EACH Latanoprost (Xalatan) 1 drop HS 02/11/17 21:00 02/15/17 20:10 1 DROP Lisinopril (Prinivil) 20 mg DAILY 02/12/17 10:00 02/15/17 08:58 20 MG Morphine Sulfate (Ms Contin) 60 mg BID 02/11/17 11:30 02/15/17 20:10 60 MG Naloxone HCl (Narcan) 0.4 mg PRN Q2MIN PRN 02/09/17 23:30 Non-Formulary Medication 72 mcg DAILY 02/11/17 09:00 02/15/17 11:01 DC Ondansetron HCl (Zofran Odt) 4 mg PRN Q4HRS PRN 02/11/17 11:00 02/11/17 14:40 4 MG Ondansetron HCl (Zofran) 4 mg PRN Q4HRS PRN 02/11/17 17:30 Pantoprazole Sodium (Protonix) 40 mg DAILYAC 02/11/17 11:30 02/15/17 08:58 40 MG Polyethylene Glycol (miraLAX PACKET) 17 gm DAILY 02/11/17 11:30 02/15/17 09:00 17 GM Potassium Chloride (Klor-Con) 20 meq DAILYWBKFT 02/16/17 08:00 Sodium Chloride 1,000 ml @ 125 mls/hr Q8H 02/09/17 23:30 02/10/17 23:29 DC 02/10/17 18:30 125 MLS/HR Venlafaxine HCl (Effexor) 50 mg TID 02/11/17 14:00 02/15/17 20:09 50 MG JO MORENO MD Feb 16, 2017 08:39
[2017-02-16] MEDS: POLYETHYLENE GLYCOL 3350 17 GM PACKET. PO SCH (09:00)
[2017-02-16] MEDS: VENLAFAXINE 50 MG TABLET. PO SCH ×2 (09:28→14:05)
[2017-02-16] MEDS: ASPIRIN CHEWABLE 81 MG TABLET. PO SCH (09:29)
[2017-02-16] MEDS: PANTOPRAZOLE 40 MG TABLET.DR. PO SCH (09:29)
[2017-02-16] MEDS: FUROSEMIDE 40 MG TABLET. PO SCH (09:29)
[2017-02-16] MEDS: POTASSIUM CHLORIDE 20 MEQ TABLET.ER. PO SCH (09:29)
[2017-02-16] MEDS: APIXABAN 5 MG TABLET. PO SCH (09:29)
[2017-02-16] MEDS: MORPHINE ER 30 MG TABLET.ER PO SCH (09:29)
[2017-02-16] MEDS: LISINOPRIL 20 MG TABLET PO SCH (09:30)
--- NOTE | 2017-02-16 09:54 | PDOC ---
PROGRESS NOTES Assessment Problems Medical Problems: (1) Acute renal failure Status: Acute (2) Opioid overdose Status: Acute Metabolic encephalopathy. Generalized weakness, no acute neurological cause. Plan Treat medical diseases. Okay for discharge to senior care Subjective No complaints Objective Vital Signs Date Time Temp Pulse Resp B/P (MAP) Pulse Ox O2 Delivery O2 Flow Rate FiO2 02/16/17 09:30 65 174/98 02/16/17 09:29 18 94 Room Air 2.0 02/16/17 07:00 97.8 97.8 Intake and Output 02/16/17 06:59 Intake Total 360 ml Balance 360 ml Intake Oral 360 ml # Voids 4 PHYSICAL EXAM Alert. Oriented to month, year, place and person. PERRL. EOMI. CN: no focal findings. Muscle tone: normal. Muscle strength: 4/5 arms, 2/5 legs DTR: 1+ Plantar reflex: Flexor Gait: not examined in bed. Sensory exam: no abnormal findings. No cerebellar signs elicited. Review of Relevant I have reviewed the following items oswaldo (where applicable) has been applied. Labs Laboratory Tests Test 02/15/17 07:10 White Blood Count 7.4 x10^3/uL (4.0-11.0) Red Blood Count 4.64 x10^6/uL (3.50-5.40) Hemoglobin 13.5 g/dL (12.0-15.5) Hematocrit 40.8 % (36.0-47.0) Mean Corpuscular Volume 88 fL (79-100) Mean Corpuscular Hemoglobin 29 pg (25-35) Mean Corpuscular Hemoglobin Concent 33 g/dL (31-37) Red Cell Distribution Width 19.7 % (11.5-14.5) Platelet Count 204 x10^3/uL (140-400) Sodium Level 139 mmol/L (136-145) Potassium Level 3.3 mmol/L (3.5-5.1) Chloride Level 99 mmol/L (98-107) Carbon Dioxide Level 31 mmol/L (21-32) Anion Gap 9 (6-14) Blood Urea Nitrogen 17 mg/dL (7-20) Creatinine 1.0 mg/dL (0.6-1.0) Estimated GFR (Cockcroft-Gault) 65.9 Glucose Level 98 mg/dL (70-99) Calcium Level 9.4 mg/dL (8.5-10.1) Medications Current Medications Sodium Chloride 1,000 ml @ 125 mls/hr 1X ONCE IV Last administered on 22:20; Start 02/09/17 at 21:45; Stop 02/10/17 at 05:44; Status DC Naloxone HCl (Narcan) 0.4 mg 1X ONCE IV Last administered on 02/09/17 22:22 ; Start 02/09/17 at 22:00; Stop 02/09/17 at 22:01; Status DC Ondansetron HCl (Zofran) 4 mg PRN Q8HRS PRN IV NAUSEA/VOMITING; Start at 23:30; Stop 02/10/17 at 23:29; Status DC Sodium Chloride 1,000 ml @ 125 mls/hr Q8H IV Last administered on 02/10/17 18:30; Start 02/09/17 at 23:30; Stop 02/10/17 at 23:29; Status DC Naloxone HCl (Narcan) 0.4 mg PRN Q2MIN PRN IV SEE COMMENTS; Start 02/09/17 at 23:30 Acetaminophen (Tylenol) 650 mg PRN Q4HRS PRN PO MILD PAIN Last administered on 02/15/17 13:29; Start 02/10/17 at 22:45 Amlodipine Besylate (Norvasc) 10 mg NOON PO Last administered on 02/15/17 11: 30; Start 02/11/17 at 12:00 Apixaban (Eliquis) 5 mg BID PO Last administered on 02/16/17 09:29; Start at 11:30 Aspirin (Children'S Aspirin) 81 mg DAILY PO Last administered on 02/16/17 09: 29; Start 02/11/17 at 11:30 Furosemide (Lasix) 40 mg DAILY PO Last administered on 02/16/17 09:29; Start 02/11/17 at 11:30 Latanoprost (Xalatan) 1 drop HS OU Last administered on 02/15/17 20:10; Start 02/11/17 at 21:00 Pantoprazole Sodium (Protonix) 40 mg DAILYAC PO Last administered on 09:29; Start 02/11/17 at 11:30 Polyethylene Glycol (miraLAX PACKET) 17 gm DAILY PO Last administered on 09:00; Start 02/11/17 at 11:30 Non-Formulary Medication 40 mg DAILY SQ ; Start 02/11/17 at 09:00; Stop at 11:01; Status DC Non-Formulary Medication 72 mcg DAILY PO ; Start 02/11/17 at 09:00; Stop 02/15 at 11:01; Status DC Morphine Sulfate (Ms Contin) 60 mg BID PO Last administered on 02/16/17 09:29 ; Start 02/11/17 at 11:30 Ondansetron HCl (Zofran Odt) 4 mg PRN Q4HRS PRN PO NAUSEA/VOMITING Last administered on 02/11/17 14:40; Start 02/11/17 at 11:00 Potassium Chloride (Klor-Con) 20 meq DAILYWBKFT PO Last administered on 09:29; Start 02/11/17 at 11:30 Venlafaxine HCl (Effexor) 50 mg TID PO Last administered on 02/16/17 09:28; Start 02/11/17 at 14:00 Albuterol Sulfate (Ventolin Neb Soln) 2.5 mg PRN QID PRN NEB SHORTNESS OF BREATH; Start 02/11/17 at 11:00 Info (Anti-Coagulation Monitoring By Pharmacy) 1 each PRN DAILY PRN MC SEE COMMENTS Last administered on 02/14/17 14:33; Start 02/11/17 at 15:00 Ondansetron HCl (Zofran) 4 mg PRN Q4HRS PRN IV NAUSEA/VOMITING; Start at 17:30 Potassium Chloride (Klor-Con) 40 meq 1X ONCE PO Last administered on 06:12; Start 02/12/17 at 06:30; Stop 02/12/17 at 06:31; Status DC Lisinopril (Prinivil) 20 mg DAILY PO Last administered on 02/16/17 09:30; Start 02/12/17 at 10:00 Potassium Chloride (Klor-Con) 40 meq 1X ONCE PO Last administered on 16:46; Start 02/12/17 at 14:45; Stop 02/12/17 at 14:46; Status DC Potassium Chloride (Klor-Con) 40 meq 1X ONCE PO Last administered on t 10:17; Start 02/15/17 at 08:45; Stop 02/15/17 at 08:49; Status DC Potassium Chloride (Klor-Con) 20 meq DAILYWBKFT PO ; Start 02/16/17 at 08:00 Active Scripts Active Ambien (Zolpidem Tartrate) 5 Mg Tablet 5 Mg PO PRN QHS PRN 30 Days Polyethylene Glycol 3350 17 Gm Powd.pack 17 Gm PO DAILY 30 Days Effexor Xr (Venlafaxine Hcl) 150 Mg Cap.er.24h 1 Cap PO DAILY [Lisinopril] 40 MG Tablet 40 Mg PO DAILY [Albuterol Sulfate] 2.5 MG/3 ML Nebu 2.5 Mg NEB RTQID PRN Norvasc (Amlodipine Besylate) 10 Mg Tablet 10 Mg PO NOON Reported Hydrocodone-Apap 10-325 (Hydrocodone Bit/Acetaminophen) 1 Each Tablet 1 Tab PO PRN Q4HRS PRN Alprazolam 0.5 Mg Tablet 1 Tab PO HS [venlafaxine HCL] 100 Mg PO DAILY Protonix (Pantoprazole Sodium) 40 Mg Tablet.dr 40 Mg PO BID Potassium Chloride 20 Meq Tablet.er 20 Meq PO DAILY Ondansetron Hcl 4 Mg Tablet 4 Mg PO Q4HRS PRN Morphine Sulfate Er (Morphine Sulfate) 60 Mg Tablet.er 1 Tab PO BID Metoprolol Tartrate 50 Mg Tablet 1 Tab PO BID Methotrexate (Methotrexate Sodium) 2.5 Mg Tablet 3 Tab PO WEEKLY every Wednesday Linzess (Linaclotide) 72 Mcg Capsule 72 Mcg PO DAILY Ferrous Sulfate 325 Mg Tablet 1 Tab PO BID Gabapentin 100 Mg Capsule 100 Mg PO AFTRNOON Gabapentin 300 Mg Capsule 300 Mg PO HS Gabapentin 100 Mg Capsule 100 Mg PO DAILY07 Flomax (Tamsulosin Hcl) 0.4 Mg Cap.er.24h 1 Cap PO DAILY Vitamin D2 (Ergocalciferol (Vitamin D2)) 50,000 Unit Capsule 1 Cap PO DAILY Sore Throat Lozenge (Benzocaine/Menthol) 1 Each Lozenge 1 Each MM Q2HR PRN Carafate (Sucralfate) 1 Gm Tablet 1 Tab PO QID Buspirone Hcl 10 Mg Tablet 20 Mg PO TID Biofreeze (Menthol) 118 Ml Gel..ml. 118 Ml TP PRN PRN Furosemide 20 Mg Tablet 40 Mg PO DAILY Cyclobenzaprine Hcl 10 Mg Tablet 10 Mg PO PRN Q8HRS PRN Humira (Adalimumab) 40 Mg/0.8 Ml Kit 40 Mg SQ DAILY Eliquis (Apixaban) 5 Mg Tablet 5 Mg PO BID Aspirin 81 Mg Tab.chew 81 Mg PO Timoptic 0.5% Ocudose Drop (Timolol Maleate/Pf) 1 Each Droperette 1 Each OP Pantoprazole Sodium 40 Mg Tablet.dr 40 Mg PO DAILY Latanoprost 2.5 Ml Drops 1 Drop OP HS Folic Acid 1 Mg Tablet 1 Mg PO DAILY Vitals/I & O Vital Sign - Last 24 Hours 02/15/17 02/15/17 02/15/17 02/15/17 10:45 11:30 12:58 14:58 Temp 97.9 97.9 97.9 97.9 Pulse 63 63 77 Resp 17 22 B/P (MAP) 133/74 (93) 133/74 128/67 (87) Pulse Ox 93 97 O2 Delivery Room Air Room Air O2 Flow Rate 2.0 02/15/17 02/15/17 02/15/17 02/15/17 19:41 20:00 20:10 23:59 Temp 97.5 97.4 97.5 97.4 Pulse 69 63 Resp 20 17 20 B/P (MAP) 118/70 (86) 128/74 (92) Pulse Ox 94 97 95 O2 Delivery Room Air Room Air Room Air Room Air 02/16/17 02/16/17 02/16/17 02/16/17 00:30 03:39 07:00 09:29 Temp 97.5 97.8 97.5 97.8 Pulse 61 65 Resp 19 18 18 18 B/P (MAP) 139/77 (97) 174/98 (123) Pulse Ox 94 94 94 94 O2 Delivery Room Air Room Air Room Air Room Air O2 Flow Rate 2.0 02/16/17 09:30 Pulse 65 B/P (MAP) 174/98 Intake and Output 02/15/17 02/15/17 02/16/17 14:59 22:59 06:59 Intake Total 360 ml 0 ml Balance 360 ml 0 ml SHELDON FUENTES MD Feb 16, 2017 09:54
[2017-02-16 10:40] VITALS: BP 152/92
[2017-02-16 12:18] VITALS: BP 152/92
[2017-02-16] MEDS: ACETAMINOPHEN 325 MG TABLET. PO PRN (12:18)
[2017-02-16] MEDS: amLODIPine BESYLATE 10 MG TABLET PO SCH (12:18)
== END 2017-02-16 15:46 | disposition home or self-care (01) | DRG 917 ==
LOC: ER 21:22 → 1 WEST ICU 22:58 → 5 SOUTH 02-10 14:05
PROVIDERS: ADMIT Family Medicine; ATTEND Family Medicine
DX: T40.2X1A Poisoning by other opioids, accidental (unintentional), initial encounter (principal); G93.41 Metabolic encephalopathy; N17.9 Acute kidney failure, unspecified; I95.9 Hypotension, unspecified; I11.0 Hypertensive heart disease with heart failure; E11.51 Type 2 diabetes mellitus with diabetic peripheral angiopathy without gangrene; G35 Multiple sclerosis; I48.91 Unspecified atrial fibrillation; I50.9 Heart failure, unspecified; Z68.41 Body mass index [BMI] 40.0-44.9, adult; E87.6 Hypokalemia; E66.9 Obesity, unspecified; E78.5 Hyperlipidemia, unspecified; F32.9 Major depressive disorder, single episode, unspecified; M19.90 Unspecified osteoarthritis, unspecified site; F41.9 Anxiety disorder, unspecified; G89.29 Other chronic pain; H40.9 Unspecified glaucoma; I89.0 Lymphedema, not elsewhere classified; J45.909 Unspecified asthma, uncomplicated; K21.9 Gastro-esophageal reflux disease without esophagitis; K59.00 Constipation, unspecified; M06.9 Rheumatoid arthritis, unspecified; M47.812 Spondylosis without myelopathy or radiculopathy, cervical region; Z87.440 Personal history of urinary (tract) infections; R09.02 Hypoxemia; Z79.891 Long term (current) use of opiate analgesic; Z79.899 Other long term (current) drug therapy; Z82.49 Family history of ischemic heart disease and other diseases of the circulatory system; Z83.3 Family history of diabetes mellitus; Z90.49 Acquired absence of other specified parts of digestive tract; Z90.710 Acquired absence of both cervix and uterus; Z95.0 Presence of cardiac pacemaker; Z95.1 Presence of aortocoronary bypass graft; Z98.49 Cataract extraction status, unspecified eye; Z88.0 Allergy status to penicillin; Z91.018 Allergy to other foods; Z98.51 Tubal ligation status
CPT/HCPCS: 36415; 51701; 70450; 71010; 72125; 74176; 78264; 80048; 80053; 80307; 81001; 82306; 82553; 82607; 82962; 83735; 83880; 84439; 84443; 84481; 84484; 85025; 85027; 85651; 87641; 93005; 93971; 95816; 96361; 96374; A9541; J2310; J7030; Q0162; 97140; 97530; 99285-25; G0479

== ENCOUNTER 2017-06-08 19:04 | Inpatient (IN) | payer MEDICARE, OTHER ==
[2017-06-08] MEDS: LIDO:MAALOX:DONNATAL 1:1:1 15 ML SINGLE DOSE SWSW (19:54)
[2017-06-08 20:09] LABS: ADD MAN DIFF? NO
[2017-06-08 20:14] LABS: BASO # 0.1 x10^3/uL (0.0-0.2); BASO % 1 % (0-3); EOS # 0.1 x10^3/uL (0.0-0.7); EOS % 3 % (0-3); HEMATOCRIT 42.8 % (36.0-47.0); HEMOGLOBIN 14.2 g/dL (12.0-15.5); LYMPH # 1.9 x10^3/uL (1.0-4.8); LYMPH % 38 % (24-48); MEAN CORPUSCULAR HEMOGLOBIN 30 pg (25-35); MEAN CORPUSCULAR HGB CONC 33 g/dL (31-37); MEAN CORPUSCULAR VOLUME 92 fL (79-100); MONO # 0.4 x10^3/uL (0.0-1.1); MONO % 9 % (0-9); NEUT # 2.5 x10^3uL (1.8-7.7); NEUT % 50 % (31-73); PLATELET COUNT 241 x10^3/uL (140-400); RED BLOOD COUNT 4.67 x10^6/uL (3.50-5.40); RED CELL DISTRIBUTION WIDTH 15.3 % (11.5-14.5)
[2017-06-08] MEDS: IV NORMAL SALINE 1000ML BAG 1,000 ML IV (20:20)
[2017-06-08] MEDS: PANTOPRAZOLE IV PUSH 40 MG VIAL. IVP (20:20)
[2017-06-08] MEDS: ONDANSETRON PF 4 MG/2 ML VIAL. IV (20:20)
[2017-06-08 20:23] LABS: AGAP ISTAT 15 mmol/L (6-14); BUN ISTAT 7 mg/dL (8-26); CHLORIDE ISTAT 97 mmol/L (98-110); CREATININE ISTAT 0.5 mg/dL (0.5-1.4); GLUCOSE ISTAT 118 mg/dL (70-99); HEMATOCRIT ISTAT 43 % (36-40); HEMOGLOBIN ISTAT 14.6 g/dL (12-15); ION CA ISTAT 1.07 mmol/L (1.13-1.32); POTASSIUM ISTAT 4.1 mmol/L (3.5-5.0); SODIUM ISTAT 137 mmol/L (135-145); TOT CO2 ISTAT 30 mmol/L (23-32)
[2017-06-08] MEDS ORDERED: CONTRAST GIVEN MC (20:30)
[2017-06-08 20:32] LABS: ALBUMIN 3.6 g/dL (3.4-5.0); ALBUMIN/GLOBULIN RATIO 0.7 (1.0-1.7); ALK PHOS 107 U/L (46-116); ALT (SGPT) 32 U/L (14-59); ANION GAP 10 (6-14); AST (SGOT) 33 U/L (15-37); BLOOD UREA NITROGEN 9 mg/dL (7-20); BUN/CREATININE RATIO 13 (6-20); CALCIUM 9.5 mg/dL (8.5-10.1); CARBON DIOXIDE 28 mmol/L (21-32); CHLORIDE 99 mmol/L (98-107); CREATININE 0.7 mg/dL (0.6-1.0); GFR 99.5; GLUCOSE 120 mg/dL (70-99); LIPASE 57 U/L (73-393); MAGNESIUM 1.8 mg/dL (1.8-2.4); SODIUM 137 mmol/L (136-145); TOTAL PROTEIN 8.7 g/dL (6.4-8.2)
[2017-06-08 20:34] LABS: LACTIC ACID 1.2 mmol/L (0.4-2.0)
[2017-06-08 20:37] LABS: POTASSIUM 2.7 mmol/L (3.5-5.1)
[2017-06-08 20:41] LABS: TROPONINI < 0.017 ng/mL (0.000-0.055)
[2017-06-08 20:42] LABS: NT-PRO BNP 28 pg/mL (0-124)
[2017-06-08] MEDS: IOHEXOL 300 MG/ML 100ML VIAL. IV (20:43)
[2017-06-08] MEDS ORDERED: ONDANSETRON PF 4 MG/2 ML VIAL. IV (20:45)
[2017-06-08 20:48] LABS: INR 1.5 (0.8-1.1); PROTHROMBIN TIME PATIENT 17.3 SEC (11.7-14.0)
[2017-06-08 20:49] LABS: PARTIAL THROMBOPLASTIN TIME 44 SEC (24-38)
[2017-06-08] MEDS: fentaNYL PF VIAL 100 MCG/2 ML VIAL IV ×2 (21:00→23:23)
[2017-06-08] MEDS: POTASSIUM CHLORIDE 20 MEQ TABLET.ER. PO ×2 (21:03→23:23)
[2017-06-08] MEDS: POTASSIUM CL 40MEQ IN 0.9%NACL 1,000 ML IV (21:04)
[2017-06-09] MEDS: fentaNYL PF VIAL 100 MCG/2 ML VIAL IV ×2 (04:26→08:32)
[2017-06-09 05:40] LABS: ADD MAN DIFF? NO
[2017-06-09 05:42] LABS: BASO % 1 % (0-3); EOS # 0.1 x10^3/uL (0.0-0.7); EOS % 3 % (0-3); HEMATOCRIT 38.5 % (36.0-47.0); HEMOGLOBIN 12.8 g/dL (12.0-15.5); LYMPH # 1.7 x10^3/uL (1.0-4.8); LYMPH % 35 % (24-48); MEAN CORPUSCULAR HEMOGLOBIN 31 pg (25-35); MEAN CORPUSCULAR HGB CONC 33 g/dL (31-37); MEAN CORPUSCULAR VOLUME 93 fL (79-100); MONO # 0.6 x10^3/uL (0.0-1.1); MONO % 12 % (0-9); NEUT # 2.4 x10^3uL (1.8-7.7); NEUT % 50 % (31-73); PLATELET COUNT 228 x10^3/uL (140-400); RED BLOOD COUNT 4.14 x10^6/uL (3.50-5.40); RED CELL DISTRIBUTION WIDTH 15.4 % (11.5-14.5); WHITE BLOOD COUNT 4.9 x10^3/uL (4.0-11.0)
[2017-06-09 06:00] LABS: ANION GAP 7 (6-14); BLOOD UREA NITROGEN 5 mg/dL (7-20); CALCIUM 9.2 mg/dL (8.5-10.1); CARBON DIOXIDE 29 mmol/L (21-32); CHLORIDE 104 mmol/L (98-107); CREATININE 0.7 mg/dL (0.6-1.0); GFR 99.5; GLUCOSE 112 mg/dL (70-99); POTASSIUM 3.5 mmol/L (3.5-5.1); SODIUM 140 mmol/L (136-145)
[2017-06-09] MEDS: APIXABAN 5 MG TABLET. PO ×2 (10:00→20:23)
[2017-06-09] MEDS ORDERED: ALBUTEROL SULFATE 2.5 MG/3 ML NEBU. NEB (10:15)
[2017-06-09] MEDS: LINACLOTIDE 145 MCG CAPSULE. PO (11:08)
[2017-06-09] MEDS: LISINOPRIL 20 MG TABLET PO (11:09)
[2017-06-09] MEDS: PANTOPRAZOLE 40 MG TABLET.DR. PO ×2 (11:10→16:50)
[2017-06-09] MEDS: busPIRone 10 MG TABLET. PO ×3 (11:10→20:23)
[2017-06-09] MEDS: METOCLOPRAMIDE 10 MG TABLET. PO ×3 (11:10→20:23)
[2017-06-09] MEDS: amLODIPine BESYLATE 10 MG TABLET PO (11:10)
[2017-06-09] MEDS: ASPIRIN CHEWABLE 81 MG TABLET. PO (11:11)
[2017-06-09] MEDS: POLYETHYLENE GLYCOL 3350 17 GM PACKET. PO (11:12)
[2017-06-09] MEDS: CETIRIZINE HCL 10 MG TABLET. PO (11:12)
[2017-06-09] MEDS: cloNIDine HCL 0.2 MG TABLET PO ×2 (11:12→20:23)
[2017-06-09] MEDS: FOLIC ACID 1 MG TABLET. PO (11:12)
[2017-06-09] MEDS: SUCRALFATE 1 GM TABLET. PO ×3 (11:12→20:24)
[2017-06-09] MEDS: HYDROcodone/APAP 10/325 1 TAB TABLET PO ×3 (11:34→20:04)
[2017-06-09] MEDS: IPRATRPIUM/ALBUTEROL 0.5/2.5MG 3 ML NEBU. NEB ×2 (11:45→11:55)
[2017-06-09] MEDS: FLUTICASONE 50MCG/NASAL SPRAY 16GM BOTTLE. NS (11:53)
[2017-06-09] MEDS: TEMAZEPAM 15 MG CAPSULE PO (20:22)
[2017-06-09] MEDS: LATANOPROST 0.005% OPHTH SOLUTION 2.5ML BOTTLE. OU (20:24)
[2017-06-09] MEDS ORDERED: NON FORMULARY ITEM (Melatonin 10 MG) PO (21:00)
[2017-06-10] MEDS: HYDROcodone/APAP 10/325 1 TAB TABLET PO ×6 (00:19→20:20)
[2017-06-10] MEDS: LINACLOTIDE 145 MCG CAPSULE. PO (05:57)
[2017-06-10] MEDS: IPRATRPIUM/ALBUTEROL 0.5/2.5MG 3 ML NEBU. NEB ×4 (08:02→19:51)
[2017-06-10] MEDS: FOLIC ACID 1 MG TABLET. PO (08:13)
[2017-06-10] MEDS: SUCRALFATE 1 GM TABLET. PO ×4 (08:13→20:15)
[2017-06-10] MEDS: APIXABAN 5 MG TABLET. PO ×2 (08:13→20:14)
[2017-06-10] MEDS: ASPIRIN CHEWABLE 81 MG TABLET. PO (08:15)
[2017-06-10] MEDS: METOCLOPRAMIDE 10 MG TABLET. PO ×4 (08:15→20:15)
[2017-06-10] MEDS: cloNIDine HCL 0.2 MG TABLET PO ×2 (08:15→20:15)
[2017-06-10] MEDS: LISINOPRIL 20 MG TABLET PO (08:15)
[2017-06-10] MEDS: PANTOPRAZOLE 40 MG TABLET.DR. PO ×2 (08:15→16:17)
[2017-06-10] MEDS: busPIRone 10 MG TABLET. PO ×3 (08:15→20:14)
[2017-06-10] MEDS: FLUTICASONE 50MCG/NASAL SPRAY 16GM BOTTLE. NS (08:16)
[2017-06-10] MEDS: CETIRIZINE HCL 10 MG TABLET. PO (08:16)
[2017-06-10] MEDS: POLYETHYLENE GLYCOL 3350 17 GM PACKET. PO (08:16)
[2017-06-10] MEDS: amLODIPine BESYLATE 10 MG TABLET PO (12:00)
[2017-06-10] MEDS: IV NORMAL SALINE 1000ML BAG 1,000 ML IV (12:42)
[2017-06-10] MEDS: ANTI-COAG MONITOR BY PHARMACY. MC (13:44)
[2017-06-10] MEDS: TEMAZEPAM 15 MG CAPSULE PO (20:14)
[2017-06-10] MEDS: LATANOPROST 0.005% OPHTH SOLUTION 2.5ML BOTTLE. OU (20:16)
[2017-06-11] MEDS: HYDROcodone/APAP 10/325 1 TAB TABLET PO ×6 (00:31→21:31)
[2017-06-11] MEDS: LINACLOTIDE 145 MCG CAPSULE. PO (06:28)
[2017-06-11] MEDS: IPRATRPIUM/ALBUTEROL 0.5/2.5MG 3 ML NEBU. NEB ×3 (07:42→19:23)
[2017-06-11] MEDS: POLYETHYLENE GLYCOL 3350 17 GM PACKET. PO (09:00)
[2017-06-11] MEDS: FOLIC ACID 1 MG TABLET. PO (09:07)
[2017-06-11] MEDS: APIXABAN 5 MG TABLET. PO ×2 (09:07→21:32)
[2017-06-11] MEDS: METOCLOPRAMIDE 10 MG TABLET. PO ×4 (09:07→21:32)
[2017-06-11] MEDS: SUCRALFATE 1 GM TABLET. PO ×4 (09:07→21:30)
[2017-06-11] MEDS: CETIRIZINE HCL 10 MG TABLET. PO (09:07)
[2017-06-11] MEDS: PANTOPRAZOLE 40 MG TABLET.DR. PO ×2 (09:08→17:13)
[2017-06-11] MEDS: busPIRone 10 MG TABLET. PO ×3 (09:08→21:32)
[2017-06-11] MEDS: ASPIRIN CHEWABLE 81 MG TABLET. PO (09:08)
[2017-06-11 12:19] LABS: MRSA BY PCR Negative (Negative)
[2017-06-11] MEDS: FLUTICASONE 50MCG/NASAL SPRAY 16GM BOTTLE. NS (12:20)
[2017-06-11] MEDS: amLODIPine BESYLATE 10 MG TABLET PO (12:22)
[2017-06-11] MEDS: cloNIDine HCL 0.2 MG TABLET PO ×2 (12:22→21:32)
[2017-06-11] MEDS: LISINOPRIL 20 MG TABLET PO (12:22)
[2017-06-11] MEDS: IV NORMAL SALINE 1000ML BAG 1,000 ML IV (13:05)
[2017-06-11] MEDS: ANTI-COAG MONITOR BY PHARMACY. MC (13:08)
[2017-06-11 20:15] LABS: BILIRUBIN,URINE NEGATIVE (NEG); CLARITY,URINE CLEAR; COLOR,URINE YELLOW; GLUCOSE,URINE NEGATIVE (NEG); NITRITE,URINE NEGATIVE (NEG); PROTEIN,URINE NEGATIVE (NEG-TRACE)
[2017-06-11 20:23] LABS: BACTERIA,URINE MANY /HPF (0-FEW); RBC,URINE RARE /HPF (0-2); WBC,URINE RARE /HPF (0-4)
[2017-06-11 20:24] LABS: SQUAMOUS EPITHELIAL CELL,UR MOD /LPF
[2017-06-11] MEDS: TEMAZEPAM 15 MG CAPSULE PO (21:31)
[2017-06-11] MEDS: LATANOPROST 0.005% OPHTH SOLUTION 2.5ML BOTTLE. OU (21:35)
[2017-06-12] MEDS: IV NORMAL SALINE 1000ML BAG 1,000 ML IV ×2 (01:03→13:08)
[2017-06-12] MEDS: HYDROcodone/APAP 10/325 1 TAB TABLET PO ×6 (01:36→21:02)
[2017-06-12] MEDS: LINACLOTIDE 145 MCG CAPSULE. PO (05:26)
[2017-06-12 06:46] LABS: ANION GAP 9 (6-14); BLOOD UREA NITROGEN 11 mg/dL (7-20); CALCIUM 8.4 mg/dL (8.5-10.1); CARBON DIOXIDE 28 mmol/L (21-32); CHLORIDE 107 mmol/L (98-107); CREATININE 0.8 mg/dL (0.6-1.0); GFR 85.3; GLUCOSE 95 mg/dL (70-99); POTASSIUM 3.2 mmol/L (3.5-5.1); SODIUM 144 mmol/L (136-145)
[2017-06-12] MEDS: PANTOPRAZOLE 40 MG TABLET.DR. PO ×2 (08:14→17:02)
[2017-06-12] MEDS: METOCLOPRAMIDE 10 MG TABLET. PO ×4 (08:14→21:03)
[2017-06-12] MEDS: SUCRALFATE 1 GM TABLET. PO ×4 (08:15→21:03)
[2017-06-12] MEDS: POLYETHYLENE GLYCOL 3350 17 GM PACKET. PO ×2 (08:40→08:53)
[2017-06-12] MEDS: busPIRone 10 MG TABLET. PO ×3 (08:41→21:02)
[2017-06-12] MEDS: APIXABAN 5 MG TABLET. PO ×2 (08:42→21:02)
[2017-06-12] MEDS: cloNIDine HCL 0.2 MG TABLET PO ×2 (08:42→21:03)
[2017-06-12] MEDS: FOLIC ACID 1 MG TABLET. PO (08:43)
[2017-06-12] MEDS: LISINOPRIL 20 MG TABLET PO (08:43)
[2017-06-12] MEDS: FLUTICASONE 50MCG/NASAL SPRAY 16GM BOTTLE. NS (08:43)
[2017-06-12] MEDS: ASPIRIN CHEWABLE 81 MG TABLET. PO (08:43)
[2017-06-12] MEDS: CETIRIZINE HCL 10 MG TABLET. PO (08:43)
[2017-06-12] MEDS: POTASSIUM CHLORIDE 20 MEQ TABLET.ER. PO (08:45)
[2017-06-12] MEDS: IPRATRPIUM/ALBUTEROL 0.5/2.5MG 3 ML NEBU. NEB ×3 (09:05→19:39)
[2017-06-12] MEDS: amLODIPine BESYLATE 10 MG TABLET PO (13:07)
[2017-06-12] MEDS: TEMAZEPAM 15 MG CAPSULE PO (21:02)
[2017-06-12] MEDS: LATANOPROST 0.005% OPHTH SOLUTION 2.5ML BOTTLE. OU (21:03)
[2017-06-13] MEDS: HYDROcodone/APAP 10/325 1 TAB TABLET PO ×6 (01:19→21:26)
[2017-06-13] MEDS: IV NORMAL SALINE 1000ML BAG 1,000 ML IV (01:20)
[2017-06-13] MEDS: LINACLOTIDE 145 MCG CAPSULE. PO (06:06)
[2017-06-13] MEDS: IPRATRPIUM/ALBUTEROL 0.5/2.5MG 3 ML NEBU. NEB ×3 (07:28→20:24)
[2017-06-13] MEDS: PANTOPRAZOLE 40 MG TABLET.DR. PO ×2 (07:50→17:10)
[2017-06-13] MEDS: SUCRALFATE 1 GM TABLET. PO ×4 (07:50→21:26)
[2017-06-13] MEDS: METOCLOPRAMIDE 10 MG TABLET. PO ×4 (07:50→21:27)
[2017-06-13] MEDS: POLYETHYLENE GLYCOL 3350 17 GM PACKET. PO (09:00)
[2017-06-13] MEDS ORDERED: DICLOFENAC SODIUM 1% TOPICAL GEL 100GM TUBE. TP (09:15)
[2017-06-13] MEDS: CETIRIZINE HCL 10 MG TABLET. PO (09:19)
[2017-06-13] MEDS: LISINOPRIL 20 MG TABLET PO (09:19)
[2017-06-13] MEDS: busPIRone 10 MG TABLET. PO ×3 (09:19→21:26)
[2017-06-13] MEDS: APIXABAN 5 MG TABLET. PO ×2 (09:20→21:26)
[2017-06-13] MEDS: cloNIDine HCL 0.2 MG TABLET PO ×2 (09:20→21:27)
[2017-06-13] MEDS: ASPIRIN CHEWABLE 81 MG TABLET. PO (09:20)
[2017-06-13] MEDS: FOLIC ACID 1 MG TABLET. PO (09:21)
[2017-06-13] MEDS: METHOTREXATE SODIUM 2.5 MG TABLET PO (09:22)
[2017-06-13] MEDS: FLUTICASONE 50MCG/NASAL SPRAY 16GM BOTTLE. NS (09:23)
[2017-06-13] MEDS: amLODIPine BESYLATE 10 MG TABLET PO (12:30)
[2017-06-13] MEDS: LATANOPROST 0.005% OPHTH SOLUTION 2.5ML BOTTLE. OU (21:25)
[2017-06-13] MEDS: TEMAZEPAM 15 MG CAPSULE PO (21:27)
[2017-06-14] MEDS: HYDROcodone/APAP 10/325 1 TAB TABLET PO ×6 (01:48→22:17)
[2017-06-14] MEDS: LINACLOTIDE 145 MCG CAPSULE. PO (06:19)
[2017-06-14] MEDS: IPRATRPIUM/ALBUTEROL 0.5/2.5MG 3 ML NEBU. NEB ×3 (07:56→19:46)
[2017-06-14] MEDS: ACETAMINOPHEN 325 MG TABLET. PO (08:22)
[2017-06-14] MEDS: ONDANSETRON ODT 4 MG TAB.RAPDIS. PO (08:22)
[2017-06-14] MEDS: SUCRALFATE 1 GM TABLET. PO ×4 (08:22→20:39)
[2017-06-14] MEDS: FOLIC ACID 1 MG TABLET. PO (08:22)
[2017-06-14] MEDS: ASPIRIN CHEWABLE 81 MG TABLET. PO (08:22)
[2017-06-14] MEDS: PANTOPRAZOLE 40 MG TABLET.DR. PO ×2 (08:22→16:25)
[2017-06-14] MEDS: CETIRIZINE HCL 10 MG TABLET. PO (08:23)
[2017-06-14] MEDS: cloNIDine HCL 0.2 MG TABLET PO ×2 (08:23→20:38)
[2017-06-14] MEDS: APIXABAN 5 MG TABLET. PO ×2 (08:24→20:38)
[2017-06-14] MEDS: LISINOPRIL 20 MG TABLET PO (08:24)
[2017-06-14] MEDS: METOCLOPRAMIDE 10 MG TABLET. PO ×4 (08:24→20:38)
[2017-06-14] MEDS: busPIRone 10 MG TABLET. PO ×3 (08:25→20:40)
[2017-06-14] MEDS: FLUTICASONE 50MCG/NASAL SPRAY 16GM BOTTLE. NS (08:25)
[2017-06-14] MEDS: POLYETHYLENE GLYCOL 3350 17 GM PACKET. PO (08:25)
[2017-06-14] MEDS: amLODIPine BESYLATE 10 MG TABLET PO (13:13)
[2017-06-14] MEDS ORDERED: methylPREDNISolone ACETATE 80 MG/ML VIAL. INJ (13:30)
[2017-06-14] MEDS ORDERED: LIDOCAINE 1% PF 30 ML VIAL. INJ (13:45)
[2017-06-14] MEDS: LATANOPROST 0.005% OPHTH SOLUTION 2.5ML BOTTLE. OU (20:37)
[2017-06-14] MEDS: TEMAZEPAM 15 MG CAPSULE PO (20:37)
[2017-06-15] MEDS: HYDROcodone/APAP 10/325 1 TAB TABLET PO ×3 (02:22→10:58)
[2017-06-15] MEDS: SUCRALFATE 1 GM TABLET. PO (06:29)
[2017-06-15] MEDS: PANTOPRAZOLE 40 MG TABLET.DR. PO (06:29)
[2017-06-15] MEDS: LINACLOTIDE 145 MCG CAPSULE. PO (06:29)
[2017-06-15] MEDS: METOCLOPRAMIDE 10 MG TABLET. PO (06:31)
[2017-06-15] MEDS: IPRATRPIUM/ALBUTEROL 0.5/2.5MG 3 ML NEBU. NEB ×2 (07:20→11:28)
[2017-06-15] MEDS: POLYETHYLENE GLYCOL 3350 17 GM PACKET. PO (09:00)
[2017-06-15] MEDS: FOLIC ACID 1 MG TABLET. PO (09:11)
[2017-06-15] MEDS: CETIRIZINE HCL 10 MG TABLET. PO (09:11)
[2017-06-15] MEDS: ASPIRIN CHEWABLE 81 MG TABLET. PO (09:11)
[2017-06-15] MEDS: APIXABAN 5 MG TABLET. PO (09:11)
[2017-06-15] MEDS: busPIRone 10 MG TABLET. PO (09:12)
[2017-06-15] MEDS: cloNIDine HCL 0.2 MG TABLET PO (09:12)
[2017-06-15] MEDS: FLUTICASONE 50MCG/NASAL SPRAY 16GM BOTTLE. NS (09:13)
[2017-06-15] MEDS: LISINOPRIL 20 MG TABLET PO (09:13)
== END 2017-06-15 13:10 | disposition home or self-care (01) | DRG 392 ==
LOC: ER 19:04 → 5 SOUTH 20:40
PROC: 3E0U33Z Introduction of Anti-inflammatory into Joints, Percutaneous Approach (ICD-10-PCS; principal; 2017-06-15)
PROC: 3E0U3BZ Introduction of Anesthetic Agent into Joints, Percutaneous Approach (ICD-10-PCS; 2017-06-15)
DX: R19.7 Diarrhea, unspecified (principal); I11.0 Hypertensive heart disease with heart failure; I27.20 Pulmonary hypertension, unspecified; I48.91 Unspecified atrial fibrillation; I50.9 Heart failure, unspecified; E87.6 Hypokalemia; E78.5 Hyperlipidemia, unspecified; F32.9 Major depressive disorder, single episode, unspecified; F41.9 Anxiety disorder, unspecified; G89.29 Other chronic pain; H40.9 Unspecified glaucoma; I73.9 Peripheral vascular disease, unspecified; J45.909 Unspecified asthma, uncomplicated; K21.9 Gastro-esophageal reflux disease without esophagitis; M06.9 Rheumatoid arthritis, unspecified; M75.101 Unspecified rotator cuff tear or rupture of right shoulder, not specified as traumatic; K29.80 Duodenitis without bleeding; K59.09 Other constipation; M19.90 Unspecified osteoarthritis, unspecified site; Z96.659 Presence of unspecified artificial knee joint; Z82.49 Family history of ischemic heart disease and other diseases of the circulatory system; Z83.3 Family history of diabetes mellitus; Z90.710 Acquired absence of both cervix and uterus; Z90.89 Acquired absence of other organs; Z95.0 Presence of cardiac pacemaker; Z90.49 Acquired absence of other specified parts of digestive tract; Z86.73 Personal history of transient ischemic attack (TIA), and cerebral infarction without residual deficits; Z98.51 Tubal ligation status; Z88.0 Allergy status to penicillin; Z91.018 Allergy to other foods
CPT/HCPCS: 36415; 73030; 74177; 80047; 80048; 80053; 81001; 83605; 83690; 83735; 83880; 84484; 85025; 85610; 85730; 87086; 87641; 94640; 94760; 96361; 96374; 96375; 97161-GP; 97530-GP; 99285; 99285-25; C9113; J2405; J3010; J3480; J7030; J7620; J8597; J8610; Q0162; Q9967

== ENCOUNTER 2017-07-16 14:27 | Emergency (ER) | payer MEDICARE, OTHER ==
[2017-07-16 15:11] LABS: BILIRUBIN,URINE NEGATIVE (NEG); CLARITY,URINE CLEAR; COLOR,URINE YELLOW; GLUCOSE,URINE NEGATIVE (NEG); NITRITE,URINE NEGATIVE (NEG); PROTEIN,URINE NEGATIVE (NEG-TRACE); UROBILINOGEN,URINE 0.2 mg/dL (0.2 mg/dL)
[2017-07-16 15:26] LABS: ADD MAN DIFF? NO
[2017-07-16 15:30] LABS: BASO # 0.1 x10^3/uL (0.0-0.2); BASO % 1 % (0-3); EOS # 0.2 x10^3/uL (0.0-0.7); EOS % 3 % (0-3); HEMOGLOBIN 13.2 g/dL (12.0-15.5); LYMPH # 2.2 x10^3/uL (1.0-4.8); LYMPH % 31 % (24-48); MEAN CORPUSCULAR HEMOGLOBIN 32 pg (25-35); MEAN CORPUSCULAR HGB CONC 34 g/dL (31-37); MEAN CORPUSCULAR VOLUME 95 fL (79-100); MONO # 0.5 x10^3/uL (0.0-1.1); MONO % 7 % (0-9); NEUT # 4.1 x10^3uL (1.8-7.7); NEUT % 58 % (31-73); PLATELET COUNT 200 x10^3/uL (140-400); RED BLOOD COUNT 4.13 x10^6/uL (3.50-5.40); RED CELL DISTRIBUTION WIDTH 15.3 % (11.5-14.5); WHITE BLOOD COUNT 7.1 x10^3/uL (4.0-11.0)
[2017-07-16 15:40] LABS: BACTERIA,URINE MANY /HPF (0-FEW); SQUAMOUS EPITHELIAL CELL,UR MANY /LPF
[2017-07-16 15:45] LABS: ANION GAP 9 (6-14); BLOOD UREA NITROGEN 9 mg/dL (7-20); BUN/CREATININE RATIO 11 (6-20); CALCIUM 9.4 mg/dL (8.5-10.1); CARBON DIOXIDE 27 mmol/L (21-32); CHLORIDE 103 mmol/L (98-107); CREATININE 0.8 mg/dL (0.6-1.0); GFR 85.3; GLUCOSE 120 mg/dL (70-99); POTASSIUM 3.3 mmol/L (3.5-5.1); SODIUM 139 mmol/L (136-145)
[2017-07-16 15:54] LABS: ALBUMIN 3.4 g/dL (3.4-5.0); ALBUMIN/GLOBULIN RATIO 0.7 (1.0-1.7); ALK PHOS 104 U/L (46-116); ALT (SGPT) 18 U/L (14-59); AST (SGOT) 17 U/L (15-37); TOTAL BILIRUBIN 0.4 mg/dL (0.2-1.0); TOTAL PROTEIN 8.3 g/dL (6.4-8.2)
[2017-07-16] MEDS: HYDROcodone/APAP 10/325 1 TAB TABLET PO (16:00)
[2017-07-16] MEDS: POTASSIUM CHLORIDE 20 MEQ TABLET.ER. PO (16:24)
== END 2017-07-16 17:21 | disposition home or self-care (01) ==
LOC: ER 14:27
DX: R30.0 Dysuria (principal); E87.6 Hypokalemia; E78.5 Hyperlipidemia, unspecified; I10 Essential (primary) hypertension; F32.9 Major depressive disorder, single episode, unspecified; K21.9 Gastro-esophageal reflux disease without esophagitis; I48.91 Unspecified atrial fibrillation; M19.90 Unspecified osteoarthritis, unspecified site; Z91.018 Allergy to other foods; Z98.51 Tubal ligation status; Z88.0 Allergy status to penicillin; Z90.710 Acquired absence of both cervix and uterus; Z95.0 Presence of cardiac pacemaker
CPT/HCPCS: 36415; 71045; 80053; 81001; 85025; 87086; 87186; 99285-25

== ENCOUNTER → 2017-12-06 | Outpatient (CLI) | payer OTHER ==
[2017-08-04 11:15] VITALS: BP 126/68
[~2017-12-06] MED LIST changes: +ACET325T9 PO; +ALPR0.5T6 PO; +BENZ1LOZ4 MM; +BENZ1LOZ5 MM; +BUSP10TA PO; +CALC1TAB21 PO; +CAPS56.614 TP; +CELE100C PO; +CETI10TA22 PO; +CLON0.2T PO; +CYAN10005 PO; +CYCL5TAB PO; +DIAZ2TAB3 PO; +DICL100G18 TP; +ERGO500027 PO; +FERR325T14 PO; +FLUT9.9S NS; +GABA-585 PO; +GABA-586 PO; +HYDR-2766 PO; +HYDR100T24 PO; +IPRA3AMP29 NEB; +LINA290C PO; +LINA72CA PO; +MAGN400O7 PO; +MAGN400T3 PO; +MELA3TAB2 PO; +MENT118G TP; +METO10TA81 PO; +METO50TA6 PO; +MICO1KIT VG; +MORP15TA3 PO; +MORP30TA3 PO; +MORP60TA PO; +ONDA4TAB11 PO; +PANT40TA3 PO; +POTA20TA82 PO; +RANI150T2 PO; +SUCR1TAB35 PO; +TAMS0.4C97 PO; +TEMA15CA6 PO; -TIMO1DRO2 OP; +TIMO1DRO2 OU; +TRAV5DRO EACHEYE; +VENLAFAXINE HCL PO
--- NOTE | 2017-12-06 12:20 | RAD ---
DATE: December 06, 2017 EXAM: DIGITAL SCREEN BILAT W/CAD HISTORY: Screening study. COMPARISON: 2016 and 2017 This study was interpreted with the benefit of Computerized Aided Detection (CAD). FINDINGS: Breast Density: SCATTERED The breast parenchyma shows scattered fibroglandular densities. Breast parenchyma level B. There is a new asymmetric nodular density of the medial upper aspect of the right breast. A few punctate calcifications are seen within it. Recommend magnification compression views in the CC and 90 degree projections followed by right breast sonography for further evaluation. The left breast is stable. IMPRESSION: New abnormality of the right breast. Additional imaging is needed. BI-RADS CATEGORY: 0 INCOMPLETE: NEEDS ADDITIONAL IMAGING EVALUATION AND/OR PRIOR MAMMOGRAMS FOR COMPARISON. RECOMMENDED FOLLOW-UP: ADD ADDITIONAL IMAGING PQRS compliance statement: Patient information was entered into a reminder system with a target due date now for the next imaging study. Mammography is a sensitive method for finding small breast cancers, but it does not detect them all and is not a substitute for careful clinical examination. A negative mammogram does not negate a clinically suspicious finding and should not result in delay in biopsying a clinically suspicious abnormality. "Our facility is accredited by the [employer] Mammography Program." The patient's breast density may affect the ability of mammography to detect breast cancer. There are 4 categories of breast density, A, B, C and D. Breast density A means that most of the breast tissue is replaced with adipose tissue and therefore is not dense. Breast density B means that the breast tissue is mildly dense and scattered. Breast density C means that the breast tissue is heterogeneously dense. Breast density D means that the breast tissue is very dense. Breast densities especially C and D may decrease the sensitivity of mammography to detect breast cancer. Therefore, the patient may benefit from 3-D breast mammography (3D breast tomography) as a part of their screening mammogram. Insurance may or may not pay for this additional imaging. The patient's breast density based on today's mammogram is category B.
== END | disposition home or self-care (01) ==
LOC: MAMMO 09:57
PROVIDERS: ATTEND Family Medicine
DX: Z12.31 Encounter for screening mammogram for malignant neoplasm of breast (principal)
CPT/HCPCS: 77067

== ENCOUNTER → 2017-12-24 | Outpatient (CLI) | payer OTHER ==
[2017-08-04 11:15] VITALS: BP 126/68
--- NOTE | 2017-12-24 11:23 | RAD ---
DATE: 12/24/2017 EXAM: DIGITAL DIAGNOSTIC RT, BREAST RIGHT HISTORY: Suspicious screening study COMPARISON: 12/06/2017 This study was interpreted with the benefit of Computerized Aided Detection (CAD). Breast Density: SCATTERED The breast parenchyma shows scattered fibroglandular densities. Breast parenchyma level B. FINDINGS: Additional views of the right breast confirm the presence of an ill-defined nodular opacity in the posterior aspect of the right breast at the 12-1 o'clock location. It measures approximately 18 mm in greatest diameter. It lies approximately 11 cm above the nipple. There are several small adjacent microcalcifications. Right breast ultrasound, 12/24/2017: A targeted ultrasound exam of the upper inner quadrant of the right breast was performed. Approximately 11 cm from the nipple there is a heterogeneous lesion with ill-defined borders. It demonstrates hyperechoic and hypoechoic components as well as mild posterior acoustic shadowing. It measures approximately 2 cm in greatest diameter. It is palpable. This appears to correspond in location to the mammographic abnormality. Malignancy is suspected. No other abnormality was seen in this region of the right breast. IMPRESSION: New right breast mass as described above, suspicious for malignancy. Ultrasound-guided biopsy is suggested for further evaluation. Note: The findings were discussed with the patient at the time of the exam and she is aware of the recommendation for biopsy. She will follow-up with the ordering provider. BI-RADS CATEGORY: 4 SUSPICIOUS ABNORMALITY- BIOPSY SHOULD BE CONSIDERED RECOMMENDED FOLLOW-UP: BIO BIOPSY RECOMMENDED PQRS compliance statement: Patient information was entered into a reminder system with a target due date for the next mammogram. Mammography is a sensitive method for finding small breast cancers, but it does not detect them all and is not a substitute for careful clinical examination. A negative mammogram does not negate a clinically suspicious finding and should not result in delay in biopsying a clinically suspicious abnormality. "Our facility is accredited by the [employer] Mammography Program."
== END | disposition home or self-care (01) ==
LOC: MAMMO 10:03
PROVIDERS: ATTEND Family Medicine
DX: R92.8 Other abnormal and inconclusive findings on diagnostic imaging of breast (principal)
CPT/HCPCS: 76641; 77065

== ENCOUNTER → 2018-01-18 | Outpatient (CLI) | payer OTHER ==
[2017-08-04 11:15] VITALS: BP 126/68
[~2018-01-18] MED LIST changes: -GABA-586 PO; +GABA300C18 PO; -HYDR-2766 PO; +HYDR-2769 PO; +POLY17PO28 PO; -POLY17PO3 PO
--- NOTE | 2018-01-21 15:09 | PATHOLOGY ---
[facility] Accession Number: [id number] . 01 Material submitted: . RIGHT BREAST MASS . 01 Clinical history: . Right breast mass 18 mm . 02 Diagnosis: Breast "right breast mass,12-1 oclock needle core biopsy": - Infiltrating ductal carcinoma measuring grade 2, measuring 1.5 cm in greatest dimension. . . Specimen Type: Biopsy Tumor Site: Right breast mass Tumor Quantitation: 1.5 cm Histological Grade: 2 Tubules: 3 Nuclei: 2 Mitoses: 1 LVSI: Not present Microcalcification: Not present . Markers are ordered on block A2. Once those are available, an additional report will follow. . (SHA:mm; 01/21/18) [facility]/01/21/2018 . 02 Comment: This case is also reviewed by Dr. John Perez. Dr. Stephan Rich was notified today on 01/21/2018, at 12:00 pm . Immunoperoxidase stains AE1/AE3 (block A2): Positive Immunoperoxidase stains E-cadherin (block A2): Positive . (SHA:mml; 01/21/18) . 02 Electronically signed: . Jonathan Smalls MD, Pathologist NPI- [id number] . 01 Gross description: . Received in formalin labeled "Stephen, Stephanie, right," and additionally labeled on the requisition as "breast BX, 12:00-1:00, 11 cm FN," are multiple needle cores of yellow-alcala fibrofatty tissue measuring 2.0 x 0.6 x 0.2 cm in aggregate dimensions. The tissue submitted in its entirety in cassette A1 through A3. The cold ischemic time is 5 minutes. The total formalin fixation time is 29 hours and 35 minutes. (TSD; 01/18/2018) TOB/TOB . 02 Pathologist provided ICD-10: C50.911 . 02 CPT . 531818, F78562, G90379 Specimen Comment: A courtesy copy of this report has been sent to Specimen Comment: [phone], . Specimen Comment: Report sent to / DR MORENO Specimen Comment: A duplicate report has been generated due to demographic updates. Performed at: 01 [facility] [address] [place] [id number] MD Leon Dunaway MD Phone: [phone] Performed at: [address] [id number] MD John Flores MD Phone: [phone]
--- NOTE | 2018-01-24 13:37 | RAD ---
Ultrasound-guided vacuum-assisted right breast biopsy, 01/18/2018: History: Suspicious nodule Previous studies demonstrated a suspicious nodule at the 1:00 location in the right breast. Under local anesthesia, aseptic conditions and sonographic guidance the GoYoDeo biopsy instrument was passed into this lesion via a medial approach. Multiple 12-gauge vacuum-assisted core samples were obtained and sent to pathology for evaluation. A biopsy marker was then deposited at the biopsy site. The biopsy instrument was removed and hemostasis obtained. Two-view postprocedural digital mammograms were then obtained to document position of the biopsy marker. The marker lies along the anterior margin of the biopsied lesion. The patient tolerated the procedure well and left the department in good condition. The subsequent pathology report indicated the presence of infiltrating ductal carcinoma. This is a concordant finding. The pathology report indicates that Dr. Mccray has been informed of these findings.
== END | disposition home or self-care (01) ==
LOC: US 12:15
PROVIDERS: ATTEND Family Medicine
DX: C50.211 Malignant neoplasm of upper-inner quadrant of right female breast (principal); I10 Essential (primary) hypertension; Z88.0 Allergy status to penicillin; Z91.018 Allergy to other foods; Z90.710 Acquired absence of both cervix and uterus; Z90.49 Acquired absence of other specified parts of digestive tract; Z98.890 Other specified postprocedural states; Z98.51 Tubal ligation status; Z79.01 Long term (current) use of anticoagulants; Z95.0 Presence of cardiac pacemaker
CPT/HCPCS: 19083; 77065; 88305; 88341; 88342; C1713; 19081; 76942; 88361

== ENCOUNTER 2018-04-30 09:43 | Inpatient (IN) | payer MEDICARE, OTHER ==
[~2018-04-30] VITALS: Ht 162.6 cm; Wt 120.7 kg
[~2018-04-30 09:43] MED LIST changes: -LINA290C PO; +LINZESS290 MCG PO
[2018-04-30] MEDS ORDERED: fentaNYL PF VIAL 100 MCG/2 ML VIAL IV ONE ×2 (10:15→11:15)
[2018-04-30] MEDS: NITROGLYCERIN SUBLINGUAL 0.4 MG BOTTLE OF 25. SL PRN ×2 (10:16→10:22)
--- NOTE | 2018-04-30 10:19 | PHYS DOC ---
Past Medical History Past Medical History: A-Fib, Anemia, Anxiety, Arthritis, Constipation, Dementia , Depression, GERD, High Cholesterol, Hypertension, UTI, Other Additional Past Medical Histor: bradycardia,LYMPHEDEMA,RA,PULM HTN,URINE RETEN Past Surgical History: Hysterectomy, Pacemaker, Tubal ligation, Other Additional Past Surgical Histo: l wrist, l knee, hernia, cataract, PACEMAKER Alcohol Use: None Drug Use: None Adult General Chief Complaint Chief Complaint: CHEST PAIN HPI HPI Patient is a 72 year old female who presents with chest pain that started at 9: 00 this morning. Patient states this mainly on the right side but is starting to move or to the left side and she states is like somebody is sitting on her chest. Patient states it radiates to her mid back. patient rates her pain a 10 out of 10. Patient denies nausea, vomiting, diarrhea, abdominal pain. States she ate cereal last 8:30 this morning. EMS gave her 4 baby aspirin. Patient speaks in full clear sentences. Review of Systems Review of Systems Constitutional: Denies fever or chills [] Eyes: Denies change in visual acuity, redness, or eye pain [] HENT: Denies nasal congestion or sore throat [] Respiratory: Denies cough or shortness of breath [] Cardiovascular: Right and left chest pain and pressure GI: Denies abdominal pain, nausea, vomiting, bloody stools or diarrhea [] : Denies dysuria or hematuria [] Musculoskeletal: Denies back pain or joint pain [] Integument: Denies rash or skin lesions [] Neurologic: Denies headache, focal weakness or sensory changes [] All other systems were reviewed and found to be within normal limits, except as documented in this note. Current Medications Current Medications Current Medications Medications (Trade) Dose Ordered Sig/Celina Start Time Stop Time Status Last Admin Dose Admin Acetaminophen (Tylenol) 650 mg PRN Q4HRS PRN 04/30/18 11:30 05/01/18 11:29 UNV Fentanyl Citrate (Fentanyl 2ml Vial) 50 mcg PRN Q1HR PRN 04/30/18 11:30 05/01/18 11:29 UNV Nitroglycerin (Nitrostat) 0.4 mg PRN Q5MIN PRN 04/30/18 10:15 04/30/18 10:22 0.4 MG Ondansetron HCl (Zofran) 4 mg PRN Q8HRS PRN 04/30/18 11:30 05/01/18 11:29 UNV Sodium Chloride 1,000 ml @ 1,000 mls/hr 1X ONCE 04/30/18 11:30 04/30/18 12:29 Allergies Allergies Allergies Coded Allergies Type Severity Reaction Last Updated Verified Penicillins Allergy Intermediate hives, TOLERATES CEFTRIAXONE 07/27/17 Yes orange juice Allergy Intermediate 02/10/17 Yes Physical Exam Physical Exam Constitutional: Well developed, well nourished, no acute distress, non-toxic appearance. [] HENT: Normocephalic, atraumatic, bilateral external ears normal, oropharynx moist, no oral exudates, nose normal. [] Eyes: PERRLA, EOMI, conjunctiva normal, no discharge. [] Neck: Normal range of motion, no tenderness, supple, no stridor. [] Cardiovascular:Heart rate regular rhythm, no murmur. Tenderness with palpation over right and left chest. [] Lungs & Thorax: Bilateral breath sounds clear to auscultation [] Abdomen: Bowel sounds normal, soft, no tenderness, no masses, no pulsatile masses. [] Skin: Warm, dry, no erythema, no rash. [] Back: No tenderness, no CVA tenderness. [] Extremities: No tenderness, no cyanosis, no clubbing, ROM intact, 1+ peripheral edema. [] Neurologic: Alert and oriented X 3, normal motor function, normal sensory function, no focal deficits noted. [] Psychologic: Affect normal, judgement normal, mood normal. [] Current Patient Data Vital Signs Vital Signs Date Time Temp Pulse Resp B/P (MAP) Pulse Ox O2 Delivery O2 Flow Rate FiO2 04/30/18 11:16 16 Room Air 04/30/18 10:53 74 153/81 (105) 99 04/30/18 09:43 98.1 98.1 Lab Values Laboratory Tests Test 04/30/18 10:10 White Blood Count 5.7 x10^3/uL (4.0-11.0) Red Blood Count 4.04 x10^6/uL (3.50-5.40) Hemoglobin 12.6 g/dL (12.0-15.5) Hematocrit 38.3 % (36.0-47.0) Mean Corpuscular Volume 95 fL (79-100) Mean Corpuscular Hemoglobin 31 pg (25-35) Mean Corpuscular Hemoglobin Concent 33 g/dL (31-37) Red Cell Distribution Width 15.0 % (11.5-14.5) H Platelet Count 245 x10^3/uL (140-400) Neutrophils (%) (Auto) 59 % (31-73) Lymphocytes (%) (Auto) 31 % (24-48) Monocytes (%) (Auto) 8 % (0-9) Eosinophils (%) (Auto) 2 % (0-3) Basophils (%) (Auto) 1 % (0-3) Neutrophils # (Auto) 3.4 x10^3uL (1.8-7.7) Lymphocytes # (Auto) 1.7 x10^3/uL (1.0-4.8) Monocytes # (Auto) 0.5 x10^3/uL (0.0-1.1) Eosinophils # (Auto) 0.1 x10^3/uL (0.0-0.7) Basophils # (Auto) 0.0 x10^3/uL (0.0-0.2) Sodium Level 143 mmol/L (136-145) Potassium Level 3.3 mmol/L (3.5-5.1) L Chloride Level 101 mmol/L (98-107) Carbon Dioxide Level 30 mmol/L (21-32) Anion Gap 12 (6-14) Blood Urea Nitrogen 10 mg/dL (7-20) Creatinine 0.8 mg/dL (0.6-1.0) Estimated GFR (Cockcroft-Gault) 85.1 BUN/Creatinine Ratio 13 (6-20) Glucose Level 159 mg/dL (70-99) H Calcium Level 9.3 mg/dL (8.5-10.1) Total Bilirubin 0.3 mg/dL (0.2-1.0) Aspartate Amino Transferase (AST) 16 U/L (15-37) Alanine Aminotransferase (ALT) 15 U/L (14-59) Alkaline Phosphatase 114 U/L (46-116) Troponin I Quantitative < 0.017 ng/mL (0.000-0.055) NG-Agx-E-Type Natriuretic Peptide 99 pg/mL (0-124) Total Protein 7.6 g/dL (6.4-8.2) Albumin 3.2 g/dL (3.4-5.0) L Albumin/Globulin Ratio 0.7 (1.0-1.7) L Laboratory Tests 04/30/18 10:10 Laboratory Tests 04/30/18 10:10 EKG EKG Sinus rhythm and no STEMI[] Interpretation Time: [address] Centeno Radiology/Procedures Radiology/Procedures [] Impressions: [facility] [address] [place] [address] IMAGING REPORT Signed PATIENT: SALMA BAUMANN ACCOUNT: [id number] : 1945 LOCATION: ER AGE: 72 SEX: F EXAM STATUS: PRE ER ORD. PHYSICIAN: MATTHEW PEREIRA APRN REASON: chest pain PROCEDURE: PORTABLE CHEST 1V PORTABLE CHEST 1V History: CHEST PAIN SINCE THIS MORNING. NO KNOWN HX OF CHEST OR LUNG DISEASE. Comparison with July 22, 2017. Pacemaker device is again identified. Aorta is tortuous. No evidence of pneumothorax, pleural effusion or focal airspace consolidation. Cardiomediastinal silhouette is stable. IMPRESSION: Similar appearance as prior. No consolidating infiltrate. Electronically signed by: Fidencio Calle MD (04/30/2018 10:25 AM) [facility] DICTATED and SIGNED BY: FIDENCIO CALLE MD DATE: 04/30/18 1025 Course & Med Decision Making Course & Med Decision Making Patient is a 72 year old female who presents with chest pain that started at 9: 00 this morning. Patient states this mainly on the right side but is starting to move or to the left side and she states is like somebody is sitting on her chest. Patient states it radiates to her mid back. patient rates her pain a 10 out of 10. Patient denies shortness of air, numbness or tingling, nausea, vomiting, diarrhea, abdominal pain, dizziness, visual changes, or weaknesses. States she ate cereal last 8:30 this morning. EMS gave her 4 baby aspirin. Patient speaks in full clear sentences. Patient has bilateral 1+ edema peripheral edema. Alert and oriented. Lungs are clear in upper lobes but diminished in lower lobes. Patient has a pacemaker with a history of A. fib, anemia, dementia, depression, hypertension high cholesterol, UTIs, urinary retention. Abdomen is soft and nontender. EKG shows sinus rhythm and no STEMI. PERRLA. Neurologically intact. Tenderness with palpation to right and left chest. 1100: Patient received 2 doses of nitroglycerin and started complaining of a headache. The nitroglycerin 2 doses brought her pain down to an 8 out of 10. Patient is still complaining of pain in her chest. Patient's blood pressure left arm is 152/75 and blood pressure in the right arm is 153/81. Have ordered patient a second dose of fentanyl. 1125: I have spoken to Dr Moreno and the patient will be admitted with a consult to cardiology. Catie Disclaimer Catie Disclaimer This electronic medical record was generated, in whole or in part, using a voice recognition dictation system. Departure Departure Impression: Primary Impression: Chest pain Disposition: ADMITTED INPATIENT Admitting Physician: Jo Moreno Condition: STABLE Referrals: JO MORENO MD (PCP) Problem Qualifiers Primary Impression: Chest pain Chest pain type: unspecified Qualified Codes: R07.9 - Chest pain, unspecified MATTHEW PEREIRA [employer]INEER Apr 30, 2018 10:19
[2018-04-30 10:28] LABS: BASO % 1 % (0-3); EOS # 0.1 x10^3/uL (0.0-0.7); EOS % 2 % (0-3); HEMATOCRIT 38.3 % (36.0-47.0); HEMOGLOBIN 12.6 g/dL (12.0-15.5); LYMPH # 1.7 x10^3/uL (1.0-4.8); LYMPH % 31 % (24-48); MEAN CORPUSCULAR HEMOGLOBIN 31 pg (25-35); MEAN CORPUSCULAR HGB CONC 33 g/dL (31-37); MEAN CORPUSCULAR VOLUME 95 fL (79-100); MONO # 0.5 x10^3/uL (0.0-1.1); MONO % 8 % (0-9); NEUT # 3.4 x10^3uL (1.8-7.7); NEUT % 59 % (31-73); PLATELET COUNT 245 x10^3/uL (140-400); RED BLOOD COUNT 4.04 x10^6/uL (3.50-5.40); WHITE BLOOD COUNT 5.7 x10^3/uL (4.0-11.0)
--- NOTE | 2018-04-30 10:28 | RAD ---
PORTABLE CHEST 1V History: CHEST PAIN SINCE THIS MORNING. NO KNOWN HX OF CHEST OR LUNG DISEASE. Comparison with July 22, 2017. Pacemaker device is again identified. Aorta is tortuous. No evidence of pneumothorax, pleural effusion or focal airspace consolidation. Cardiomediastinal silhouette is stable. IMPRESSION: Similar appearance as prior. No consolidating infiltrate. Electronically signed by: Fidencio Calle MD (04/30/2018 10:25 AM) [facility]
[2018-04-30 10:40] LABS: CALCIUM 9.3 mg/dL (8.5-10.1); CREATININE 0.8 mg/dL (0.6-1.0); GFR 85.1; POTASSIUM 3.3 mmol/L (3.5-5.1)
[2018-04-30 10:46] LABS: ALBUMIN 3.2 g/dL (3.4-5.0); ALBUMIN/GLOBULIN RATIO 0.7 (1.0-1.7); TOTAL BILIRUBIN 0.3 mg/dL (0.2-1.0); TOTAL PROTEIN 7.6 g/dL (6.4-8.2)
[2018-04-30] MEDS ORDERED: IV NORMAL SALINE 1000ML BAG 1,000 ML IV ONE (11:30)
[2018-04-30] MEDS ORDERED: ACETAMINOPHEN 325 MG TABLET. PO PRN (11:30)
[2018-04-30] MEDS ORDERED: fentaNYL PF VIAL 100 MCG/2 ML VIAL IV PRN (11:30)
[2018-04-30] MEDS ORDERED: ONDANSETRON PF 4 MG/2 ML VIAL. IV PRN (11:30)
--- NOTE | 2018-04-30 13:00 | NUR ---
Patient arrived to unit from ED via bed, Transfered to bed with minimal assist. Alert and oriented x4, Vital signs stable, patients complains of 10/10 chest pain. Will administer pain medication accordingly.
--- NOTE | 2018-04-30 13:23 | CONS ---
DATE OF CONSULTATION: 04/30/2018 REASON FOR CONSULTATION: Chest pain. HISTORY OF PRESENT ILLNESS: The patient is well known to our service and has a longstanding history of diastolic heart failure and lymphedema as well as a previous history of pacemaker, presenting to the hospital today with acute onset of chest pain. She apparently was in her usual state of health at [facility] and states that this morning began to feel some right-sided chest pain, which then traveled to her left side. In talking to her about the quality of her pain, she describes it as sharp sensation and it is very easily reproducible by simply touching her anterior chest wall. She does not have any significant radiation of the pain to her back or to the rest of her arms. Her history is notable for a longstanding diastolic heart failure as noted with previous myocardial perfusion imaging 2 years ago, which was within normal limits. Initial evaluation in the ER did not reveal any significant pathology including a normal chest x-ray and negative cardiac enzymes. She was given narcotics for pain medications. PAST MEDICAL HISTORY: As noted above. SOCIAL HISTORY: She is currently residing in [facility]. Does not consume alcohol or smoke cigarettes. No illicit drug use. ALLERGIES: No known drug allergies except for PENICILLINS AND ORANGE JUICE. CURRENT CARDIOVASCULAR MEDICATIONS: As follows: 1. Apixaban 5 mg b.i.d. 2. Clonidine 0.2 mg b.i.d. 3. Hydralazine 75 mg q.i.d. 4. Amlodipine 10 mg daily. 5. Aspirin 81 mg daily. PHYSICAL EXAMINATION: VITAL SIGNS: Afebrile, 74, 14, 153/81, 99% on room air. GENERAL: She is in moderate distress related to diffuse total body pains. HEAD AND NECK: Otherwise unremarkable. CARDIAC: Regular rate and rhythm without any obvious murmurs, rubs or gallops. LUNGS: Fairly clear to auscultation bilaterally anteriorly. She has significant tenderness to the chest wall. ABDOMEN: Obese, protuberant, nontender. NEUROLOGIC: No focal deficits. MUSCULOSKELETAL: No obvious trauma. EXTREMITIES: She has bilateral edema, nonpitting in nature, right greater than left, likely secondary lymphedema. DIAGNOSTIC STUDIES: Hemoglobin and platelets within normal limits. Cardiac enzymes negative x 1. EKG is unremarkable. Chest x-ray is unremarkable with a dual chamber pacemaker noted. IMPRESSION: 1. Noncardiac chest pain with clear musculoskeletal component. 2. Chronic diastolic heart failure, currently stable. 3. Hypertension. 4. Dyslipidemia. RECOMMENDATIONS: 1. Continue home medical therapy. We will need to closely reconcile her medical therapy. 2. Continue her pain regimen and treatment for musculoskeletal pain. Etiology for musculoskeletal pain is unclear as she did not have any trauma, but this may just be chronic pathology. Thank you for this consultation. Please call with any further questions. SANTOS MEDINA MD DR: LITO/nts JOB#: [id number] / [id number]
[2018-04-30] MEDS ORDERED: CONTRAST GIVEN. MC PRN (14:00)
[2018-04-30] MEDS ORDERED: IOHEXOL 350 MG/ML 100 ML VIAL. IV ONE (14:00)
--- NOTE | 2018-04-30 14:27 | RAD ---
CT ANGIOGRAPHY CHEST Indication: chest pain;Omni 350, 75ml (approx. half of the contrast infiltrated) . Technique: After intravenous contrast administration, CT imaging was performed of the chest. MIP reconstructions were obtained. Exposure: One or more of the following individualized dose reduction techniques were utilized for this examination: 1. Automated exposure control 2. Adjustment of the mA and/or kV according to patient size 3. Use of iterative reconstruction technique. Note that approximately 35 cc of contrast infiltrated at the intravenous side of the right forearm. The emergency room nurse was present at the scan is aware of this finding. Suboptimal opacification of segmental branches of the pulmonary artery. No large central embolism is seen. No evidence of aortic aneurysm. Aorta not sufficiently opacified to evaluate for dissection. No significant lymph node enlargement is identified. Coronary artery calcifications. Thyroid gland appears small, partially visualized. No significant pericardial or pleural effusion. Dependent atelectasis in both lungs. No evidence of consolidating infiltrate in either lung. Trachea is patent. Scans of the upper abdomen are limited by technique. Small lesion right kidney measures 15 mm long axis and 10 Hounsfield units, most likely a cyst. Thoracic scoliosis. Degenerative spondylosis of the spine. IMPRESSION: 1. Suboptimal evaluation of segmental pulmonary artery branches. This could be due to limited bolus, bolus timing and/or body habitus. No evidence of large central pulmonary embolism. 2. No evidence of consolidating infiltrate. Electronically signed by: Fidencio Calle MD (04/30/2018 2:24 PM) [facility]
[2018-04-30] MEDS: CELECOXIB 100 MG CAPSULE. PO SCH ×2 (14:55→21:01)
[2018-04-30 15:00] VITALS: BP 130/72
[2018-04-30] MEDS ORDERED: CITA20TA9 PO ×2 (15:23→15:35)
[2018-04-30] MEDS ORDERED: ANAS1TAB PO (15:23)
[2018-04-30] MEDS ORDERED: METH2.5T PO (15:25)
[2018-04-30] MEDS ORDERED: AMLO10TA8 PO (15:28)
[2018-04-30] MEDS ORDERED: ALBUTEROL SULFATE 2.5 MG/3 ML NEBU. NEB PRN (15:30)
[2018-04-30] MEDS ORDERED: ONDANSETRON ODT 4 MG TAB.RAPDIS. PO PRN (15:30)
[2018-04-30] MEDS ORDERED: MAGNESIUM HYDROXIDE 2,400 MG/30 ML ORAL.SUSP. PO PRN (15:30)
[2018-04-30] MEDS ORDERED: DICLOFENAC SODIUM 1% TOPICAL GEL 100GM TUBE. TP PRN (15:30)
[2018-04-30] MEDS ORDERED: MAGN400O7 PO (15:35)
[2018-04-30] MEDS ORDERED: RANI150T2 PO (15:45)
[2018-04-30] MEDS ORDERED: LINZESS145 MCG PO (15:45)
[2018-04-30] MEDS ORDERED: POLY17PO29 PO (15:45)
[2018-04-30] MEDS ORDERED: LOSA-73 PO (15:51)
[2018-04-30] MEDS ORDERED: CHOL10003 PO (15:51)
[2018-04-30] MEDS ORDERED: LATA2.5D3 EACHEYE (15:51)
[2018-04-30] MEDS ORDERED: OXYC5CAP PO (15:51)
[2018-04-30] MEDS ORDERED: FERR325T14 PO (15:51)
[2018-04-30] MEDS ORDERED: BENZ1LOZ4 MM (15:51)
[2018-04-30] MEDS ORDERED: ONDA4TAB12 PO (15:55)
[2018-04-30] MEDS ORDERED: FAMO1TAB3 PO (15:55)
[2018-04-30] MEDS ORDERED: SENN8.6T67 PO (15:55)
[2018-04-30] MEDS ORDERED: MIRT15TA PO (15:55)
[2018-04-30] MEDS ORDERED: MONT10TA9 PO (15:55)
[2018-04-30] MEDS ORDERED: POTASSIUM CHLORIDE 20 MEQ TABLET.ER. PO ONE (16:15)
[2018-04-30] MEDS ORDERED: SENNOSIDES 8.6 MG TABLET PO PRN (16:45)
[2018-04-30] MEDS: amLODIPine BESYLATE 10 MG TABLET PO SCH (17:02)
[2018-04-30] MEDS: busPIRone 10 MG TABLET. PO SCH ×2 (17:02→21:04)
[2018-04-30] MEDS: hydrALAZINE 25 MG TABLET PO SCH ×2 (17:03→21:03)
[2018-04-30] MEDS: oxyCODONE IR 5 MG TABLET PO PRN ×2 (17:03→23:24)
[2018-04-30] MEDS: PANTOPRAZOLE 40 MG TABLET.DR. PO SCH (17:03)
[2018-04-30] MEDS: SUCRALFATE 1 GM TABLET. PO SCH ×2 (17:03→21:01)
[2018-04-30] MEDS: CALCIUM CARBONATE 500 MG TAB.CHEW PO PRN (17:07)
[2018-04-30 19:00] VITALS: BP 132/72
[2018-04-30] MEDS: ACETAMINOPHEN 325 MG TABLET. PO PRN (19:09)
[2018-04-30 19:31] LABS: BILIRUBIN,URINE NEGATIVE (NEG); CLARITY,URINE CLEAR; COLOR,URINE YELLOW; NITRITE,URINE NEGATIVE (NEG); PROTEIN,URINE NEGATIVE (NEG-TRACE); UROBILINOGEN,URINE 0.2 mg/dL (0.2 mg/dL)
[2018-04-30 19:42] LABS: BACTERIA,URINE FEW /HPF (0-FEW); RBC,URINE 0 /HPF (0-2); SQUAMOUS EPITHELIAL CELL,UR FEW /LPF; WBC,URINE OCC /HPF (0-4)
[2018-04-30] MEDS ORDERED: CAPSAICIN 0.025% TOPICAL CREAM 60GM TUBE. TP PRN (21:00)
[2018-04-30] MEDS: LATANOPROST 0.005% OPHTH SOLUTION 2.5ML BOTTLE. OU SCH (21:01)
[2018-04-30] MEDS: CETIRIZINE HCL 10 MG TABLET. PO SCH (21:01)
[2018-04-30] MEDS: APIXABAN 5 MG TABLET. PO SCH (21:01)
[2018-04-30] MEDS: FAMOTIDINE 20 MG TABLET. PO SCH (21:01)
[2018-04-30] MEDS: MONTELUKAST SODIUM 10 MG TABLET. PO SCH (21:01)
[2018-04-30] MEDS: MIRTAZAPINE 15 MG TABLET PO SCH (21:04)
[2018-04-30 23:00] VITALS: BP 149/73
[2018-05-01 03:00] VITALS: BP 141/74
[2018-05-01 05:50] LABS: CALCIUM 8.8 mg/dL (8.5-10.1); CREATININE 0.8 mg/dL (0.6-1.0); GFR 85.1; POTASSIUM 3.4 mmol/L (3.5-5.1)
[2018-05-01] MEDS: oxyCODONE IR 5 MG TABLET PO PRN ×5 (06:15→23:47)
[2018-05-01] MEDS: NON FORMULARY ITEM (Linaclotide (Linzess) 145 MCG) PO SCH (06:55)
[2018-05-01] MEDS: SUCRALFATE 1 GM TABLET. PO SCH ×4 (07:30→21:15)
[2018-05-01 07:55] VITALS: BP 170/84
--- NOTE | 2018-05-01 08:39 | EKG ---
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
[2018-05-01] MEDS: POLYETHYLENE GLYCOL 3350 17 GM PACKET. PO SCH (09:00)
[2018-05-01] MEDS ORDERED: MAGNESIUM HYDROXIDE 2,400 MG/30 ML ORAL.SUSP. PO SCH (09:00)
[2018-05-01] MEDS: FLUTICASONE 50MCG/NASAL SPRAY 16GM BOTTLE. NS SCH (09:00)
[2018-05-01] MEDS ORDERED: METHOTREXATE SODIUM 2.5 MG TABLET PO SCH (09:00)
[2018-05-01] MEDS: PANTOPRAZOLE 40 MG TABLET.DR. PO SCH ×2 (09:14→16:47)
[2018-05-01] MEDS: FAMOTIDINE 20 MG TABLET. PO SCH ×3 (09:14→21:15)
[2018-05-01] MEDS: LOSARTAN POTASSIUM 50 MG TABLET. PO SCH (09:14)
[2018-05-01] MEDS: CYANOCOBALAMIN (VITAMIN B-12) 1,000 MCG TABLET. PO SCH (09:15)
[2018-05-01] MEDS: MAGNESIUM OXIDE 400 MG TABLET PO SCH (09:15)
[2018-05-01] MEDS: APIXABAN 5 MG TABLET. PO SCH ×2 (09:15→21:14)
[2018-05-01] MEDS: POTASSIUM CHLORIDE 20 MEQ TABLET.ER. PO SCH (09:15)
[2018-05-01] MEDS: ACETAMINOPHEN 325 MG TABLET. PO PRN (09:15)
[2018-05-01] MEDS: CITALOPRAM 20 MG TABLET. PO SCH (09:15)
[2018-05-01] MEDS: CHOLECALCIFEROL (VITAMIN D3) 1,000 UNIT TABLET PO SCH (09:15)
[2018-05-01] MEDS: FERROUS SULFATE 325 MG TABLET. PO SCH (09:15)
[2018-05-01] MEDS: CELECOXIB 100 MG CAPSULE. PO SCH ×2 (09:15→21:15)
[2018-05-01] MEDS: FOLIC ACID 1 MG TABLET. PO SCH (09:15)
[2018-05-01] MEDS: busPIRone 10 MG TABLET. PO SCH ×3 (09:16→21:14)
[2018-05-01] MEDS: ANASTROZOLE 1 MG TABLET PO SCH (09:21)
[2018-05-01] MEDS: hydrALAZINE 25 MG TABLET PO SCH ×4 (09:27→21:14)
[2018-05-01] MEDS: TIMOLOL 0.5% OPHTH SOLUTION 5ML BOTTLE. OU SCH (09:33)
[2018-05-01 10:35] VITALS: BP 131/65
[2018-05-01] MEDS ORDERED: POTASSIUM CHLORIDE 20 MEQ TABLET.ER. PO ONE (11:30)
[2018-05-01] MEDS: methylPREDNISolone SOD SUCC PF 125 MG/2 ML VIAL. IV SCH ×2 (11:35→21:15)
--- NOTE | 2018-05-01 12:24 | HP ---
ADMIT DATE: CHIEF COMPLAINT AND HISTORY OF PRESENT ILLNESS: This 72-year-old black female is known to me from followup at [facility]. The patient had a sudden onset of chest pain on the day of admission around 9:00 a.m. at the snf while eating breakfast. She did not feel it was related to swallowing. She describes it as sharp and burning, worse with the breath, worse with movement. She was seen in the Emergency Room, admitted to rule out a cardiovascular etiology as there was no real improvement in the pain with intervention in the Emergency Room. PAST MEDICAL HISTORY: Remarkable for AFib, anxiety, anemia, arthritis, constipation, dementia, depression, GERD, hyperlipidemia, hypertension, urinary tract infections, bradycardia with prior pacemaker placement, lymphedema, pulmonary hypertension, recent breast cancer. She has had a prior hysterectomy, tubal ligation, pacemaker, left wrist, left knee surgeries, hernia repairs, cataract and the pacemaker. MEDICATIONS: Brought with the patient, listed on the computer and have been addressed. ALLERGIES: SHE IS ALLERGIC TO PENICILLIN, ORANGE JUICE. SOCIAL HISTORY: She is a nonsmoker, nondrinker, does not abuse drugs, is a snf resident. FAMILY HISTORY: Noncontributory. REVIEW OF SYSTEMS: Remarkable for a little bit of runny nose and cough leading up to this. She otherwise denies any symptoms leading up other than her usual joint aches and pains from her rheumatoid arthritis, which is a daily problem. PHYSICAL EXAMINATION: GENERAL: She is a well-developed, well-nourished white female, in no acute distress. VITAL SIGNS: Stable. She is afebrile. HEAD, EYES, EARS, NOSE AND THROAT: Unremarkable. NECK: Supple, without any thyromegaly. CHEST: Clear to auscultation and percussion. HEART: Regular rate and rhythm without S3, S4, or murmurs. She has reproducible chest pain upon palpation, particularly in the costochondral areas bilaterally. ABDOMEN: Soft, nontender, without hepatosplenomegaly or mass. EXTREMITIES: Without cyanosis, clubbing. She does have 1-2+ edema. NEUROLOGIC: She is intact. LABORATORY DATA: Initial labs were remarkable for an essentially unremarkable CBC. Her chem profile has an albumin of 3.2, potassium 3.3, sugar 159. D-dimer was elevated at 0.58. Urine was normal. She is MRSA negative on screen. CTA of the chest showed no evidence of pulmonary embolism or other significant intrathoracic pathology. Chest x-ray shows similar to what has been seen before on chest x-rays. IMPRESSION: 1. Chest pain, felt to be costochondritis in nature. 2. Multiple other problems listed above. PLAN: Celebrex has not helped her pain to date. I am going to add Solu-Medrol today. I would expect her sugars to go somewhat higher with this, but see if this will get her pain better at this point in time. JO MORENO MD DR: MAXIMILIANO/randall JOB#: [id number] / [id number]
[2018-05-01] MEDS: ANTI-COAG MONITOR BY PHARMACY. MC PRN (12:54)
[2018-05-01 14:18] VITALS: BP 126/76
[2018-05-01] MEDS: amLODIPine BESYLATE 10 MG TABLET PO SCH (16:47)
[2018-05-01 19:13] VITALS: BP 165/81
[2018-05-01] MEDS: LATANOPROST 0.005% OPHTH SOLUTION 2.5ML BOTTLE. OU SCH (21:13)
[2018-05-01] MEDS: MIRTAZAPINE 15 MG TABLET PO SCH (21:14)
[2018-05-01] MEDS: MONTELUKAST SODIUM 10 MG TABLET. PO SCH (21:15)
[2018-05-01] MEDS: CETIRIZINE HCL 10 MG TABLET. PO SCH (21:15)
[2018-05-01 23:15] VITALS: BP 139/73
[2018-05-02 03:35] VITALS: BP_SYST 145; BP_SYST 170; BP_DIAS 64; BP_DIAS 83
[2018-05-02] MEDS: oxyCODONE IR 5 MG TABLET PO PRN ×5 (03:48→20:37)
--- NOTE | 2018-05-02 04:22 | NUR ---
I have reviewed the notes, assessment, and/or procedures performed by Ainsley alvarez and concur with her documentation unless otherwise noted.
[2018-05-02 05:42] LABS: CALCIUM 9.5 mg/dL (8.5-10.1); GFR 65.8; POTASSIUM 3.8 mmol/L (3.5-5.1)
[2018-05-02] MEDS: methylPREDNISolone SOD SUCC PF 125 MG/2 ML VIAL. IV SCH ×3 (06:37→21:48)
[2018-05-02] MEDS: NON FORMULARY ITEM (Linaclotide (Linzess) 145 MCG) PO SCH (06:39)
[2018-05-02 07:00] VITALS: BP 178/89
[2018-05-02] MEDS: CELECOXIB 100 MG CAPSULE. PO SCH ×2 (08:31→20:35)
[2018-05-02] MEDS: POTASSIUM CHLORIDE 20 MEQ TABLET.ER. PO SCH (08:31)
[2018-05-02] MEDS: CYANOCOBALAMIN (VITAMIN B-12) 1,000 MCG TABLET. PO SCH (08:31)
[2018-05-02] MEDS: FOLIC ACID 1 MG TABLET. PO SCH (08:31)
[2018-05-02] MEDS: FERROUS SULFATE 325 MG TABLET. PO SCH (08:31)
[2018-05-02] MEDS: PANTOPRAZOLE 40 MG TABLET.DR. PO SCH ×2 (08:31→16:14)
[2018-05-02] MEDS: APIXABAN 5 MG TABLET. PO SCH ×2 (08:31→20:35)
[2018-05-02] MEDS: FAMOTIDINE 20 MG TABLET. PO SCH (08:31)
[2018-05-02] MEDS: busPIRone 10 MG TABLET. PO SCH ×3 (08:31→20:35)
[2018-05-02] MEDS: SUCRALFATE 1 GM TABLET. PO SCH ×3 (08:32→16:14)
[2018-05-02] MEDS: MAGNESIUM OXIDE 400 MG TABLET PO SCH (08:32)
[2018-05-02] MEDS: CHOLECALCIFEROL (VITAMIN D3) 1,000 UNIT TABLET PO SCH (08:32)
[2018-05-02] MEDS: hydrALAZINE 25 MG TABLET PO SCH ×4 (08:32→20:36)
[2018-05-02] MEDS: LOSARTAN POTASSIUM 50 MG TABLET. PO SCH (08:32)
[2018-05-02] MEDS: CITALOPRAM 20 MG TABLET. PO SCH (08:32)
[2018-05-02] MEDS: POLYETHYLENE GLYCOL 3350 17 GM PACKET. PO SCH (08:32)
[2018-05-02] MEDS: ANASTROZOLE 1 MG TABLET PO SCH (08:37)
[2018-05-02] MEDS: TIMOLOL 0.5% OPHTH SOLUTION 5ML BOTTLE. OU SCH (08:39)
[2018-05-02] MEDS: FLUTICASONE 50MCG/NASAL SPRAY 16GM BOTTLE. NS SCH (09:00)
--- NOTE | 2018-05-02 10:18 | PDOC2 ---
GI CONSULT Reason For Consult: chest pain worse with swallowing HPI: HPI: 72 y/o female who we have seen in the past. Seems h/o chronic/recurrent pain, noted to be suspect historian in the past. Admitted w/ chest pain - reviewed cardiology note - NCCP w/ MSK component. Tells me "burning" chest pain that is constant - "it hurts to eat" but is not worse while/after eating. No dysphagia. No n/v. No change in appetite or weight. Denies precipitating events/trauma. Denies diarrhea, constipation, and bleeding. Doesn't know what meds she takes at home. H/o GERD. H/o dysphagia - has seen [employer] in the past. Previous GI workup: Colonoscopy 2010: internal hemorrhoids. Colon path 2012: normal random colon biopsy. EGD path 2012: mild chronic duodenitis (no sprue), reactive gastropathy (no H. pylori). SBS 2012: normal. EGD 2017: erosive gastritis, gastric polyps. GES 2017: normal w/ T1/2 64 min. S/p cholecystectomy. Home med list includes: Voltaren, methotrexate, prednisone, Linzess, Sucralfate , Eliquis, pantoprazole, MoM, iron, oxycodone, Tums, B12, Senna, Humira, ranitidine. ?Reglan in the past PMH: PMH: CVA, HTN, CHF, HLD, RA, chronic pain, anxiety, depression, glaucoma, spinal stenosis, PVD, UTIs, breast cancer tubal ligation, cholecystectomy, hysterectomy, oophorectomy, inguinal hernia repair, tonsillectomy, pacemaker, breast biopsy FH: Family History: DM, Hypertension Social History: ALCOHOL: none Drugs: None ROS: GEN: Denies fevers, chills, sweats HEENT: Denies blurred vision, sore throat CV: +chest pain RESP: Denies shortness of air, cough GI: Per HPI : Denies hematuria, dysuria ENDO: Denies weight changes NEURO: Denies confusion, dizziness MSK: +joint pain SKIN: Denies jaundice, pruritus Vitals: Vitals: Vital Signs Date Time Temp Pulse Resp B/P (MAP) Pulse Ox O2 Delivery O2 Flow Rate FiO2 05/02/18 08:32 70 05/02/18 07:00 97.9 18 178/89 (118) 95 Room Air 97.9 05/02/18 03:35 Labs: Labs: Laboratory Tests Test 05/02/18 04:05 Sodium Level 142 mmol/L (136-145) Potassium Level 3.8 mmol/L (3.5-5.1) Chloride Level 101 mmol/L (98-107) Carbon Dioxide Level 28 mmol/L (21-32) Anion Gap 13 (6-14) Blood Urea Nitrogen 15 mg/dL (7-20) Creatinine 1.0 mg/dL (0.6-1.0) Estimated GFR (Cockcroft-Gault) 65.8 Glucose Level 211 mg/dL (70-99) Calcium Level 9.5 mg/dL (8.5-10.1) Allergies: Coded Allergies: Penicillins (Verified Allergy, Intermediate, hives, TOLERATES CEFTRIAXONE , 07/27/17) orange juice (Verified Allergy, Intermediate, 02/10/17) Medications: Current Medications Medications (Trade) Dose Ordered Sig/Celina Route PRN Reason Start Time Stop Time Status Last Admin Dose Admin Oxycodone HCl (Roxicodone) 5 mg PRN Q4HRS PRN PO MODERATE TO SEVERE PAIN 05/01/18 10:30 05/02/18 08:30 Methylprednisolone Sodium Succinate (SOLU-Medrol 125MG VIAL) 60 mg Q8HRS IV 05/01/18 11:00 05/02/18 06:37 Potassium Chloride (Klor-Con) 20 meq 1X ONCE PO 05/01/18 11:30 05/01/18 11:32 DC 05/01/18 11:36 Imaging: Imaging: CXR IMPRESSION: Similar appearance as prior. No consolidating infiltrate. Chest CTA IMPRESSION: 1. Suboptimal evaluation of segmental pulmonary artery branches. This could be due to limited bolus, bolus timing and/or body habitus. No evidence of large central pulmonary embolism. 2. No evidence of consolidating infiltrate. PE: GEN: up to chair, NAD - empty ice cream cups on tray HEENT: Atraumatic, PERRL LUNGS: CTAB anteriorly HEART: RRR - chest tender to very light touch ABD: NABS, S/ND, vague discomfort throughout EXTREMITY: BLE edema SKIN: No rashes, no jaundice NEURO/PSYCH: A & O 3, probably forgetful A/P: A/P: Chest wall pain - h/o chronic/recurrent pain H/o GERD and dysphagia - last EGD in 2016 H/o constipation - controlled CRC screen - last in 2011 S/p cholecystectomy Breast cancer, RA, h/o CVA, CHF -- Difficult history as in the past - pain seems MSK - chest tender to very light touch, also vague abd discomfort on exam. Past GI workup per HPI including 'scopes, SBS, and GES. On many meds including H2 birgit TID, Sucralfate QIDACHS, and PPI BIDAC - will stop H2 birgit, minimize sucralfate, and continue with PPI. Adjust meds for constipation as needed. Check lipase KUB for completeness, consider CTA if indicated (though again seems pain is MSK and constant). DANELLE FLOYD May 02, 2018 10:18
[2018-05-02] MEDS: ACETAMINOPHEN 325 MG TABLET. PO PRN (10:38)
--- NOTE | 2018-05-02 10:49 | NUR ---
SS following for discharge planning. SS received notification that pt was from [place]. DONI contacted [facility], ; fax [phone], to verify pt's previous placement. [facility] confirmed that pt is a LTC resident from there facility and was able to return when medically stable for discharge.
[2018-05-02 10:58] VITALS: BP 149/72
--- NOTE | 2018-05-02 12:24 | RAD ---
NURIA, 05/02/2018: HISTORY: Abdominal pain, constipation The lower pelvis was not completely included on this study. There is a moderate amount of stool and gas in the colon in a nonspecific pattern. There is a moderate amount gas in the stomach. No organomegaly is seen. IMPRESSION: 1. Moderate amount of stool in the colon. 2. No acute abdominal abnormality is detected. Electronically signed by: Homar Cunningham MD (05/02/2018 12:21 PM) [facility]
[2018-05-02] MEDS ORDERED: BISACODYL 5 MG TABLET.DR. PO ONE (13:00)
--- NOTE | 2018-05-02 13:12 | CONS ---
DATE OF CONSULTATION: ATTENDING PHYSICIAN: Dr. Stephan Floyd REASON FOR CONSULTATION: Chest pain. HISTORY OF PRESENT ILLNESS: The patient is a 72-year-old morbidly obese patient who came into the hospital with complaint of chest pain. She says this [facility]. The pain has been constant and sharp. It is tender to touch as well. There is no radiation. She denies any cough, no fever, no chills, no headache, no nausea, vomiting, no diarrhea. CT angiogram was performed, which was reviewed by me. There was no evidence of pulmonary embolism. The bolus timing was a bit suboptimal, but no central pulmonary emboli seen. No infiltrates seen. I have been asked to see her for further evaluation. PAST MEDICAL HISTORY: Significant for AFib, history of anxiety, anemia, arthritis, constipation. Rest of the detailed history is as listed in the H and P. PAST SURGICAL HISTORY: Hysterectomy, tubal ligation and multiple other surgeries. ALLERGIES: PENICILLIN AND ORANGE JUICE. MEDICATIONS: All reviewed as listed in the MRAD. SOCIAL HISTORY: Nonsmoker. Does not drink alcohol. FAMILY HISTORY: Noncontributory to lungs. MEDICATIONS: All reviewed. PHYSICAL EXAMINATION: VITAL SIGNS: Stable. Pulse ox 95% on room air. NECK: Supple. LUNGS: Clear. Tender to palpation in the anterior chest wall. CARDIOVASCULAR: Regular rate. ABDOMEN: Soft, nontender, obese. EXTREMITIES: With 1+ pitting edema. LABORATORY DATA: Reviewed. White cell count 5.7, hemoglobin 12.6 and platelets are 245. BUN and creatinine normal. Lipase 44. IMPRESSION: 1. Chest pain, likely costochondritis versus gastroesophageal reflux disease. No evidence of pulmonary embolism and no parenchymal abnormality seen on the CT chest. 2. Morbid obesity. Denies symptoms of obstructive sleep apnea. 3. No significant tobacco history. RECOMMENDATIONS: 1. Nonsteroidal anti-inflammatory per Dr. Floyd 2. From a pulmonary standpoint, no further recommendations. 3. Weight loss is advised. 4. Discharge planning per Dr. Mccray. We will see her as needed. ÁNGEL VILLALOBOS MD DR: DONELL/randall JOB#: [id number] / [id number]
[2018-05-02 15:00] VITALS: BP 158/84
--- NOTE | 2018-05-02 15:01 | NUR ---
Transfer: Report called to Pat on 5th floor. All belongigns with patient. Chart and eye drops sent with transport. Patient assisted off of unit via wheelchair accompanied by transport.
[2018-05-02] MEDS: amLODIPine BESYLATE 10 MG TABLET PO SCH (16:15)
[2018-05-02 19:00] VITALS: BP 161/90
[2018-05-02] MEDS: MONTELUKAST SODIUM 10 MG TABLET. PO SCH (20:35)
[2018-05-02] MEDS: CETIRIZINE HCL 10 MG TABLET. PO SCH (20:35)
[2018-05-02] MEDS: LATANOPROST 0.005% OPHTH SOLUTION 2.5ML BOTTLE. OU SCH (20:37)
--- NOTE | 2018-05-02 21:40 | PDOC ---
GENERAL General: vss and afebrile. still complains bitterly of chest pain despite nsaid and steroids. chest clear, heart regular, abdomen benign. chest wall tenderness persists. will ask for pulm, GI, and rheumatology opinions. VITAL SIGNS Vital Signs: Vital Signs Date Time Temp Pulse Resp B/P (MAP) Pulse Ox O2 Delivery O2 Flow Rate FiO2 05/02/18 20:37 16 100 Room Air 05/02/18 20:36 73 161/90 05/02/18 19:00 97.6 97.6 05/02/18 03:35 I & O I & O Intake and Output 05/02/18 07:00 Intake Total 1640 ml Balance 1640 ml Intake Oral 1640 ml # Voids 6 ALLERGIES Allergies: Allergies Coded Allergies Type Severity Reaction Last Updated Verified Penicillins Allergy Intermediate hives, TOLERATES CEFTRIAXONE 07/27/17 Yes orange juice Allergy Intermediate 02/10/17 Yes MEDS Medications: Current Medications Medications (Trade) Dose Ordered Sig/Celina Start Time Stop Time Status Last Admin Dose Admin Acetaminophen (Tylenol) 650 mg PRN Q6HRS PRN 04/30/18 15:30 05/02/18 10:38 650 MG Albuterol Sulfate (Ventolin Neb Soln) 3 mg PRN QID PRN 04/30/18 15:30 Amlodipine Besylate (Norvasc) 10 mg DAILYWSUP 04/30/18 17:00 05/02/18 16:15 10 MG Anastrozole (Arimidex) 1 mg DAILY 05/01/18 09:00 05/02/18 08:37 1 MG Apixaban (Eliquis) 5 mg BID 04/30/18 21:00 05/02/18 20:35 5 MG Bisacodyl (Dulcolax Tab) 10 mg 1X ONCE 05/02/18 13:00 05/02/18 13:01 DC 05/02/18 13:50 10 MG Buspirone HCl (Buspar) 20 mg TID 04/30/18 16:00 05/02/18 20:35 20 MG Calcium Carbonate/ Glycine (Tums) 1,000 mg PRN AFTMEALHC PRN 04/30/18 16:45 04/30/18 17:07 1,000 MG Capsaicin (Zostrix) 1 meño PRN TID PRN 04/30/18 21:00 Celecoxib (CeleBREX) 200 mg BID 04/30/18 15:00 05/02/18 20:35 200 MG Cetirizine HCl (ZyrTEC) 10 mg QHS 04/30/18 21:00 05/02/18 20:35 10 MG Citalopram Hydrobromide (CeleXA) 40 mg DAILY 05/01/18 09:00 05/02/18 08:32 40 MG Cyanocobalamin (Vitamin B-12) 1,000 mcg DAILY 05/01/18 09:00 05/02/18 08:31 1,000 MCG Diclofenac Sodium (Voltaren) 1 meño PRN BID PRN 04/30/18 15:30 Ergocalciferol (Vitamin D2) 50,000 unit WEEKLY 05/07/18 09:00 UNV Famotidine (Pepcid) 20 mg TID 04/30/18 21:00 05/02/18 11:42 DC 05/02/18 08:31 20 MG Fentanyl Citrate (Fentanyl 2ml Vial) 75 mcg PRN Q2HR PRN 04/30/18 15:00 Ferrous Sulfate (Feosol) 325 mg DAILY08 05/01/18 08:00 05/02/18 08:31 325 MG Fluticasone Propionate (Flonase) 2 spray DAILY 05/01/18 09:00 Folic Acid (Folic Acid) 1 mg DAILY 05/01/18 09:00 05/02/18 08:31 1 MG Hydralazine HCl (Apresoline) 75 mg QID 04/30/18 17:00 05/02/18 20:36 75 MG Info (Anti-Coagulation Monitoring By Pharmacy) 1 each PRN DAILY PRN 04/30/18 16:15 05/01/18 12:54 1 EACH Info (CONTRAST GIVEN -- Rx MONITORING) 1 each PRN DAILY PRN 04/30/18 14:00 05/02/18 13:59 DC Iohexol (Omnipaque 350 Mg/ml) 75 ml 1X ONCE 04/30/18 14:00 04/30/18 14:01 DC 04/30/18 14:09 75 ML Latanoprost (Xalatan) 1 drop QHS 04/30/18 21:00 05/02/18 20:37 1 DROP Losartan Potassium (Cozaar) 50 mg DAILY 05/01/18 09:00 05/02/18 08:32 50 MG Magnesium Hydroxide (Milk Of Magnesia) 400 mg PRN DAILY PRN 04/30/18 15:30 Magnesium Oxide (Magnesium Oxide) 400 mg DAILY 05/01/18 09:00 05/02/18 08:32 400 MG Methotrexate (Rheumatrex) 12.5 mg Rosales 05/01/18 09:00 05/01/18 09:33 12.5 MG Methylprednisolone Sodium Succinate (SOLU-Medrol 125MG VIAL) 60 mg Q8HRS 05/01/18 11:00 05/02/18 13:49 60 MG Mirtazapine (Remeron) 45 mg QHS 04/30/18 21:00 05/01/18 21:14 45 MG Montelukast Sodium (Singulair) 10 mg QHS 04/30/18 21:00 05/02/18 20:35 10 MG Nitroglycerin (Nitrostat) 0.4 mg PRN Q5MIN PRN 04/30/18 10:15 04/30/18 10:22 0.4 MG Non-Formulary Medication (Adalimumab (Humira)) 40 mg Q2WKS 05/14/18 09:00 UNV Non-Formulary Medication (Linaclotide (Linzess)) 145 mcg DAILY07 05/01/18 07:00 UNV Ondansetron HCl (Zofran Odt) 4 mg PRN Q4HRS PRN 04/30/18 15:30 Ondansetron HCl (Zofran) 4 mg PRN Q8HRS PRN 04/30/18 11:30 05/01/18 11:29 DC Oxycodone HCl (Roxicodone) 5 mg PRN Q4HRS PRN 05/01/18 10:30 05/02/18 20:37 5 MG Pantoprazole Sodium (Protonix) 40 mg BIDAC 04/30/18 16:30 05/02/18 16:14 40 MG Polyethylene Glycol (miraLAX PACKET) 17 gm DAILY 05/01/18 09:00 05/02/18 08:32 17 GM Potassium Chloride (Klor-Con) 20 meq 1X ONCE 05/01/18 11:30 05/01/18 11:32 DC 05/01/18 11:36 20 MEQ Sennosides (Senna) 8.6 mg PRN BID PRN 04/30/18 16:45 Sodium Chloride 1,000 ml @ 1,000 mls/hr 1X ONCE 04/30/18 11:30 04/30/18 12:29 DC Sucralfate (Carafate) 1 gm TIDAC 05/02/18 12:00 05/02/18 16:14 1 GM Throat Lozenges (Cepacol Sore Throat Lozenge) 1 perry PRN Q2HRS PRN 04/30/18 15:30 Timolol Maleate (Timoptic 0.5% Ophth) 1 drop DAILY 05/01/18 09:00 05/02/18 08:39 1 DROP Vitamin D (Vitamin D3) 1,000 unit DAILY 05/01/18 09:00 05/02/18 08:32 1,000 UNIT LAB Lab: Laboratory Tests Test 05/02/18 04:05 05/02/18 11:31 05/02/18 14:10 Sodium Level 142 mmol/L (136-145) Potassium Level 3.8 mmol/L (3.5-5.1) Chloride Level 101 mmol/L (98-107) Carbon Dioxide Level 28 mmol/L (21-32) Anion Gap 13 (6-14) Blood Urea Nitrogen 15 mg/dL (7-20) Creatinine 1.0 mg/dL (0.6-1.0) Estimated GFR (Cockcroft-Gault) 65.8 Glucose Level 211 mg/dL (70-99) Calcium Level 9.5 mg/dL (8.5-10.1) Lipase 44 U/L (73-393) Glucose (Fingerstick) 207 mg/dL (70-99) Erythrocyte Sedimentation Rate 47 (0-25) Creatine Kinase 72 U/L (26-192) APPLJO MD May 02, 2018 21:40
[2018-05-02] MEDS: MIRTAZAPINE 15 MG TABLET PO SCH (21:47)
[2018-05-02 22:53] VITALS: BP 158/86
[2018-05-03] MEDS: oxyCODONE IR 5 MG TABLET PO PRN ×7 (00:44→21:25)
[2018-05-03 02:59] VITALS: BP 150/82
[2018-05-03] MEDS: PANTOPRAZOLE 40 MG TABLET.DR. PO SCH ×2 (06:03→16:20)
[2018-05-03] MEDS: methylPREDNISolone SOD SUCC PF 125 MG/2 ML VIAL. IV SCH ×3 (06:03→21:24)
[2018-05-03] MEDS: NON FORMULARY ITEM (Linaclotide (Linzess) 145 MCG) PO SCH (06:08)
[2018-05-03 07:00] VITALS: BP 157/87
[2018-05-03] MEDS: SUCRALFATE 1 GM TABLET. PO SCH ×3 (07:45→16:20)
[2018-05-03] MEDS: ACETAMINOPHEN 325 MG TABLET. PO PRN ×2 (07:46→14:17)
[2018-05-03] MEDS: hydrALAZINE 25 MG TABLET PO SCH ×4 (08:45→21:22)
[2018-05-03] MEDS: CELECOXIB 100 MG CAPSULE. PO SCH ×2 (08:45→21:22)
[2018-05-03] MEDS: CHOLECALCIFEROL (VITAMIN D3) 1,000 UNIT TABLET PO SCH (08:46)
[2018-05-03] MEDS: POTASSIUM CHLORIDE 20 MEQ TABLET.ER. PO SCH (08:46)
[2018-05-03] MEDS: amLODIPine BESYLATE 10 MG TABLET PO SCH (08:46)
[2018-05-03] MEDS: CITALOPRAM 20 MG TABLET. PO SCH (08:46)
[2018-05-03] MEDS: APIXABAN 5 MG TABLET. PO SCH ×2 (08:46→21:23)
[2018-05-03] MEDS: LOSARTAN POTASSIUM 50 MG TABLET. PO SCH (08:46)
[2018-05-03] MEDS: FERROUS SULFATE 325 MG TABLET. PO SCH (08:46)
[2018-05-03] MEDS: CYANOCOBALAMIN (VITAMIN B-12) 1,000 MCG TABLET. PO SCH (08:47)
[2018-05-03] MEDS: MAGNESIUM OXIDE 400 MG TABLET PO SCH (08:47)
[2018-05-03] MEDS: TIMOLOL 0.5% OPHTH SOLUTION 5ML BOTTLE. OU SCH (08:47)
[2018-05-03] MEDS: FOLIC ACID 1 MG TABLET. PO SCH (08:47)
[2018-05-03] MEDS: ANASTROZOLE 1 MG TABLET PO SCH (08:53)
[2018-05-03] MEDS: busPIRone 10 MG TABLET. PO SCH ×3 (08:56→21:22)
[2018-05-03] MEDS: POLYETHYLENE GLYCOL 3350 17 GM PACKET. PO SCH (08:57)
[2018-05-03] MEDS: FLUTICASONE 50MCG/NASAL SPRAY 16GM BOTTLE. NS SCH (08:57)
--- NOTE | 2018-05-03 09:55 | PDOC ---
Subjective: Subjective: "Not good." Has chest pain - constant, ?worse with eating (but eating), not related to stooling. Objective: Vital Signs: Vital Signs Date Time Temp Pulse Resp B/P (MAP) Pulse Ox O2 Delivery O2 Flow Rate FiO2 05/03/18 08:47 Room Air 05/03/18 08:46 65 157/87 05/03/18 06:07 16 94 05/03/18 02:59 98.4 98.4 Labs: Laboratory Tests Test 05/02/18 11:31 05/02/18 14:10 Glucose (Fingerstick) 207 mg/dL Erythrocyte Sedimentation Rate 47 Creatine Kinase 72 U/L Imaging: KUB 05/02/18 IMPRESSION: 1. Moderate amount of stool in the colon. 2. No acute abdominal abnormality is detected. PE: GEN: NAD CHEST/ABD: very tender when I brush my fingers against her gown NEURO/PSYCH: A & O 3 A/P: Chronic pain H/o GERD and constipation - controlled Breast cancer, RA -- Past workup per consult note 05/02/18. Continue support per GI, await rheum opinion. DANELLE FLOYD May 03, 2018 09:55
--- NOTE | 2018-05-03 10:10 | PN ---
DATE: 05/03/2018 ROOM: 524. SUBJECTIVE: The patient is awake and alert, still complains bitterly of chest pain, wants something stronger for pain despite p.o. oxycodone and IV fentanyl, Celebrex and Solu-Medrol. OBJECTIVE: VITAL SIGNS: Stable. She is afebrile. GENERAL: She is awake and alert. CHEST: Clear. HEART: Regular. ABDOMEN: Benign. EXTREMITIES: Edema is the same. IMPRESSION: 1. Severe chest wall pain of uncertain etiology, currently unamenable to therapy. 2. Rheumatoid arthritis, awaiting Rheumatology consultation. PLAN: We will get CT chest with attention to the chest wall today. Await Rheumatology consultation. I am going to ask Oncology with a recent breast cancer diagnosis come by and see if they believe it could be related somehow to the same. JO MORENO MD DR: MAXIMILIANO/randall JOB#: [id number] / [id number]
[2018-05-03] MEDS: CALCIUM CARBONATE 500 MG TAB.CHEW PO PRN ×2 (10:12→12:50)
[2018-05-03 11:00] VITALS: BP 151/81
--- NOTE | 2018-05-03 14:08 | RAD ---
CT of the chest without contrast, 05/03/2018: HISTORY: Chest pain Noncontrast scans were obtained and compared to a study from 04/30/2018. There is calcific plaquing of the thoracic aorta without evidence of aneurysm. Moderate coronary artery calcifications are present. Transvenous pacing leads extend into the heart. The heart is enlarged. No mediastinal adenopathy is seen. There is minimal residual streaky atelectasis and/or scarring posteriorly in the lung bases. No significant pulmonary infiltrate or mass is seen. There is no evidence of pleural fluid or pneumothorax. There is a moderate thoracic scoliosis with moderate multilevel degenerative change. No fracture is identified. Postsurgical changes are noted in the right breast. IMPRESSION: 1. Minimal residual bibasilar atelectasis and/or scarring. 2. Cardiomegaly with coronary artery calcifications. 3. No new chest abnormality is detected. PQRS Compliance Statement: One or more of the following individualized dose reduction techniques were utilized for this examination: 1. Automated exposure control 2. Adjustment of the mA and/or kV according to patient size 3. Use of iterative reconstruction technique Electronically signed by: Homar Cunningham MD (05/03/2018 2:05 PM) [facility]
[2018-05-03 15:00] VITALS: BP 157/97
[2018-05-03 19:00] VITALS: BP 151/85
[2018-05-03] MEDS: LATANOPROST 0.005% OPHTH SOLUTION 2.5ML BOTTLE. OU SCH (21:22)
[2018-05-03] MEDS: MONTELUKAST SODIUM 10 MG TABLET. PO SCH (21:23)
[2018-05-03] MEDS: MIRTAZAPINE 15 MG TABLET PO SCH (21:23)
[2018-05-03] MEDS: CETIRIZINE HCL 10 MG TABLET. PO SCH (21:23)
[2018-05-03 23:00] VITALS: BP 151/89
[2018-05-04] MEDS: oxyCODONE IR 5 MG TABLET PO PRN ×6 (01:58→22:47)
[2018-05-04 03:00] VITALS: BP 183/71
[2018-05-04] MEDS: SUCRALFATE 1 GM TABLET. PO SCH ×3 (05:51→16:35)
[2018-05-04] MEDS: PANTOPRAZOLE 40 MG TABLET.DR. PO SCH ×2 (05:51→16:35)
[2018-05-04] MEDS: methylPREDNISolone SOD SUCC PF 125 MG/2 ML VIAL. IV SCH ×3 (06:00→22:21)
[2018-05-04] MEDS: NON FORMULARY ITEM (Linaclotide (Linzess) 145 MCG) PO SCH (06:17)
[2018-05-04 07:46] VITALS: BP 158/90
[2018-05-04] MEDS: ACETAMINOPHEN 325 MG TABLET. PO PRN ×2 (08:35→16:35)
[2018-05-04] MEDS: FOLIC ACID 1 MG TABLET. PO SCH (08:36)
[2018-05-04] MEDS: FERROUS SULFATE 325 MG TABLET. PO SCH (08:36)
[2018-05-04] MEDS: MAGNESIUM OXIDE 400 MG TABLET PO SCH (08:36)
[2018-05-04] MEDS: CYANOCOBALAMIN (VITAMIN B-12) 1,000 MCG TABLET. PO SCH (08:36)
[2018-05-04] MEDS: LOSARTAN POTASSIUM 50 MG TABLET. PO SCH (08:36)
[2018-05-04] MEDS: CHOLECALCIFEROL (VITAMIN D3) 1,000 UNIT TABLET PO SCH (08:36)
[2018-05-04] MEDS: busPIRone 10 MG TABLET. PO SCH ×3 (08:37→22:19)
[2018-05-04] MEDS: CELECOXIB 100 MG CAPSULE. PO SCH ×2 (08:37→22:19)
[2018-05-04] MEDS: hydrALAZINE 25 MG TABLET PO SCH ×4 (08:37→22:20)
[2018-05-04] MEDS: CITALOPRAM 20 MG TABLET. PO SCH (08:37)
[2018-05-04] MEDS: ANASTROZOLE 1 MG TABLET PO SCH (08:38)
[2018-05-04] MEDS: POTASSIUM CHLORIDE 20 MEQ TABLET.ER. PO SCH (08:38)
[2018-05-04] MEDS: FLUTICASONE 50MCG/NASAL SPRAY 16GM BOTTLE. NS SCH (08:38)
[2018-05-04] MEDS: TIMOLOL 0.5% OPHTH SOLUTION 5ML BOTTLE. OU SCH (08:38)
[2018-05-04] MEDS: APIXABAN 5 MG TABLET. PO SCH ×2 (08:40→22:20)
[2018-05-04] MEDS: POLYETHYLENE GLYCOL 3350 17 GM PACKET. PO SCH (08:47)
--- NOTE | 2018-05-04 10:05 | PDOC2 ---
CONSULT Date of Consult Date of Consult DATE: 05/04/18 TIME: 09:54 Reason for consultation: Breast cancer Consult: Hematology oncology, Dr. Rivas Hernandez History of present illness: She is a 72-year-old female with cT1c N0 right breast cancer ER positive HER-2 negative resected January 2018, who has been on Arimidex since February 2018, followed by one of our [facility] oncologists Dr. Ahumada. She was admitted with chest pain, right side extending to left, worse with palpation, new, acute, she was given Solu-Medrol last night and is on Celebrex but not sure how much the pain meds are helping, associated with some slight pleurisy though CT angio was negative for PE. CT chest was negative for any obvious pathology as well, though cardiomegaly and constipation were noted on imaging. Past medical history: Right breast cancer Lymphedema Wheelchair-bound but can walk Urinary retention Pacemaker Spinal stenosis History of dementia reported Anemia Anxiety and depression Diabetes Hypertension Hyperlipidemia GERD Rheumatoid arthritis Right lower extremity DVT in the 1980s Obesity Insomnia Paroxysmal A. fib Peripheral vascular disease Pulmonary hypertension Diastolic heart failure Past surgical history: EGD and colonoscopy Cholecystectomy Cataract surgery Pacemaker Breast biopsy Breast lumpectomy Abdominal hernia repair Bilateral tubal ligation Hysterectomy Left wrist surgery Left knee surgery Tonsillectomy Allergies: Oranges, tomatoes, penicillin Medications: See attached list Social history: From a half-way, single, no tobacco or alcohol Family history: Breast and ovarian cancer Review of systems: Bruising with a small palpable cord below her elbow on the right, chest pain per history of present illness, right knee pain, sweating, numbness and tingling occasionally, some dysuria, edema chronic, otherwise 10 point review of systems negative. Physical exam: Vitals reviewed Gen.: Elderly female resting in bed, in no acute distress HEENT: mucous membranes moist, head normocephalic atraumatic Neck: Supple, no lymphadenopathy Lymph nodes: No palpable lymphadenopathy neck or axilla Chest: Chest pain with palpation around the sternum right greater than left, no obvious breast masses Lungs: Breathing comfortably, no evidence of respiratory distress Abdomen: Soft, nontender, nondistended Extremities: No cyanosis, does have bilateral lower extremity edema Skin: No obvious rashes but does have a bruise on her right upper extremity below the elbow, with a small area of palpable cord Neuro: Alert and oriented 3 Psych: Pleasant mood and affect Lab reviewed: White count 7, hemoglobin 12.6, platelets 245, MCV 95 Creatinine 1.0 Troponin is negative 30 April urine culture showed Proteus mirabilis 10-25,000 Rads reviewed: CTA showed no obvious PE, cardiomegaly, KUB showed large stool in the colon Case discussed with: Patient and her nurse, records reviewed in [facility] and [facility], including labs and radiology, please see note for summary details. Assessment and Plan: She is a 72-year-old female with a history of stage I right breast cancer treated with lumpectomy 02/08, hormone positive on Arimidex since February, Arimidex can increase aches and pains, she is admitted with musculoskeletal chest pain that may be costochondritis, Solu-Medrol was added last night and she has Celebrex, and she's on apixaban with history of A. fib and remote history of right lower extremity DVT. She also has some dysuria with recent urine culture showing some Proteus mirabilis bacteria. She also has an area of what appears to be superficial venous thrombophlebitis below the elbow on the right. Breast cancer: We'll hold Arimidex due to aches and pains, this can be restarted in follow-up as needed based on her chest pain, do suspect is probably not related but would like to avoid possible contribution from Arimidex at the moment History of A. fib and remote history of DVT: On apixaban Musculoskeletal chest pain: On Solu-Medrol and Celebrex, defer to others Dysuria with recent urine culture positive for Proteus mirabilis 10-25,000, defer treatment to primary, it looks pansensitive except for Macrodantin, her nurse will discuss with primary Concern for superficial venous thrombo-phlebitis: Recommend warm packs, is on anticoagulation, will check right upper extremity ultrasound Disposition: Per others, can follow up with [facility] oncology upon discharge Thank you kindly for this consultation, and please don't hesitate to call with any further questions. Past Medical History Cardiovascular: AFIB, CHF, HTN, Hyperlipidemia, Other Pulmonary: Asthma, Bronchitis, Pneumonia, Other CENTRAL NERVOUS SYSTEM: Other GI: Constipation, GERD, Other Heme/Onc: No pertinent hx Hepatobiliary: No pertinent hx Psych: Anxiety Musculoskeletal: Osteoarthritis Rheumatologic: Rheumatoid arthritis Infectious disease: No pertinent hx Renal/: Acute renal failure, UTI, Urinary Incontinence Endocrine: No pertinent hx Past Surgical History Past Surgical History: Pacemaker, Appendectomy, Cholecystectomy, Hernia Repair , Total knee replacement, Tonsillectomy, Hysterectomy Family History Family History: Heart Disease Social History ALCOHOL: none Drugs: None Lives: with Family Domestic Violence: Neg Current Problem List Problem List Problems Medical Problems: (1) Chest pain Status: Acute Current Medications Current Medications Current Medications Fentanyl Citrate (Fentanyl 2ml Vial) 25 mcg 1X ONCE IV Last administered on 04/30/18at 10:18; Start 04/30/18 at 10:15; Stop 04/30/18 at 10:16; Status DC Nitroglycerin (Nitrostat) 0.4 mg PRN Q5MIN PRN SL CHEST PAIN Last administered on 04/30/18at 10:22; Start 04/30/18 at 10:15 Fentanyl Citrate (Fentanyl 2ml Vial) 25 mcg 1X ONCE IV Last administered on 04/30/18at 11:16; Start 04/30/18 at 11:15; Stop 04/30/18 at 11:16; Status DC Sodium Chloride 1,000 ml @ 1,000 mls/hr 1X ONCE IV ; Start 04/30/18 at 11:30; Stop 04/30/18 at 12:29; Status DC Ondansetron HCl (Zofran) 4 mg PRN Q8HRS PRN IV NAUSEA/VOMITING; Start 04/30/18 at 11:30; Stop 05/01/18 at 11:29; Status DC Fentanyl Citrate (Fentanyl 2ml Vial) 50 mcg PRN Q1HR PRN IV PAIN Last administered on 04/30/18at 12:18; Start 04/30/18 at 11:30; Stop 04/30/18 at 16:40; Status DC Acetaminophen (Tylenol) 650 mg PRN Q4HRS PRN PO FEVER; Start 04/30/18 at 11:30; Stop 04/30/18 at 16:37; Status DC Iohexol (Omnipaque 350 Mg/ml) 75 ml 1X ONCE IV Last administered on 04/30/18at 14:09; Start 04/30/18 at 14:00; Stop 04/30/18 at 14:01; Status DC Info (CONTRAST GIVEN -- Rx MONITORING) 1 each PRN DAILY PRN MC SEE COMMENTS; Start 04/30/18 at 14:00; Stop 05/02/18 at 13:59; Status DC Celecoxib (CeleBREX) 200 mg BID PO Last administered on 05/04/18 08:37; Start 04/30/18 at 15:00 Fentanyl Citrate (Fentanyl 2ml Vial) 75 mcg PRN Q2HR PRN IV PAIN; Start at 15:00 Acetaminophen (Tylenol) 650 mg PRN Q6HRS PRN PO MILD PAIN / TEMP Last administered on 05/04/18 08:35; Start 04/30/18 at 15:30 Amlodipine Besylate (Norvasc) 10 mg DAILYWSUP PO Last administered on 08:46; Start 04/30/18 at 17:00 Apixaban (Eliquis) 5 mg BID PO Last administered on 05/04/18 08:40; Start 04/30 at 21:00 Throat Lozenges (Cepacol Sore Throat Lozenge) 1 perry PRN Q2HRS PRN MM sore throat; Start 04/30/18 at 15:30 Buspirone HCl (Buspar) 20 mg TID PO Last administered on 05/04/18 08:37; Start 04/30/18 at 16:00 Cetirizine HCl (ZyrTEC) 10 mg QHS PO Last administered on 05/03/18 21:23; Start 04/30/18 at 21:00 Vitamin D (Vitamin D3) 1,000 unit DAILY PO Last administered on 05/04/18 08:36 ; Start 05/01/18 at 09:00 Citalopram Hydrobromide (CeleXA) 40 mg DAILY PO Last administered on 05/04/18 08:37; Start 05/01/18 at 09:00 Cyanocobalamin (Vitamin B-12) 1,000 mcg DAILY PO Last administered on 08:36; Start 05/01/18 at 09:00 Diclofenac Sodium (Voltaren) 1 meño PRN BID PRN TP PAIN; Start 04/30/18 at 15:30 Ergocalciferol (Vitamin D2) 50,000 unit WEEKLY PO ; Start 05/07/18 at 09:00; Status UNV Ferrous Sulfate (Feosol) 325 mg DAILY08 PO Last administered on 05/04/18 08:36 ; Start 05/01/18 at 08:00 Folic Acid (Folic Acid) 1 mg DAILY PO Last administered on 05/04/18 08:36; Start 05/01/18 at 09:00 Albuterol Sulfate (Ventolin Neb Soln) 3 mg PRN QID PRN NEB SHORTNESS OF BREATH ; Start 04/30/18 at 15:30 Losartan Potassium (Cozaar) 50 mg DAILY PO Last administered on 05/04/18at 08:36 ; Start 05/01/18 at 09:00 Magnesium Hydroxide (Milk Of Magnesia) 400 mg DAILY PO ; Start 05/01/18 at 09:00 ; Stop 05/01/18 at 10:21; Status DC Magnesium Hydroxide (Milk Of Magnesia) 400 mg PRN DAILY PRN PO CONSTIPATION ( 2nd Choice); Start 04/30/18 at 15:30 Ondansetron HCl (Zofran Odt) 4 mg PRN Q4HRS PRN PO NAUSEA; Start 04/30/18 at 15: 30 Pantoprazole Sodium (Protonix) 40 mg BIDAC PO Last administered on 05/04/18at 05 :51; Start 04/30/18 at 16:30 Non-Formulary Medication (Adalimumab (Humira)) 40 mg Q2WKS SQ ; Start 05/14/18 at 09:00; Status UNV Anastrozole (Arimidex) 1 mg DAILY PO Last administered on 05/03/18at 08:53; Start 05/01/18 at 09:00 Capsaicin (Zostrix) 1 meño PRN TID PRN TP TOPICAL PAIN; Start 04/30/18 at 21:00 Calcium Carbonate/ Glycine (Tums) 1,000 mg PRN AFTMEALHC PRN PO INDIGESTION Last administered on 05/03/18at 12:50; Start 04/30/18 at 16:45 Fluticasone Propionate (Flonase) 2 spray DAILY NS ; Start 05/01/18 at 09:00 Hydralazine HCl (Apresoline) 75 mg QID PO Last administered on 05/04/18 08:37 ; Start 04/30/18 at 17:00 Latanoprost (Xalatan) 1 drop QHS OU Last administered on 05/03/18at 21:22; Start 04/30/18 at 21:00 Non-Formulary Medication (Linaclotide (Linzess)) 145 mcg DAILY07 PO ; Start 12/10 at 07:00; Status UNV Magnesium Oxide (Magnesium Oxide) 400 mg DAILY PO Last administered on 08:36; Start 05/01/18 at 09:00 Methotrexate (Rheumatrex) 12.5 mg Rosales PO Last administered on 05/01/18 09:33; Start 05/01/18 at 09:00 Mirtazapine (Remeron) 45 mg QHS PO Last administered on 05/03/18 21:23; Start 04/30/18 at 21:00 Montelukast Sodium (Singulair) 10 mg QHS PO Last administered on 05/03/18 21: 23; Start 04/30/18 at 21:00 Oxycodone HCl (Roxicodone) 5 mg PRN Q6HRS PRN PO MODERATE TO SEVERE PAIN Last administered on 05/01/18 06:15; Start 04/30/18 at 16:45; Stop 05/01/18 at 10:20 ; Status DC Polyethylene Glycol (miraLAX PACKET) 17 gm DAILY PO Last administered on 08:47; Start 05/01/18 at 09:00 Potassium Chloride (Klor-Con) 20 meq DAILYWBKFT PO Last administered on 08:38; Start 05/01/18 at 08:00 Famotidine (Pepcid) 20 mg TID PO Last administered on 05/02/18 08:31; Start at 21:00; Stop 05/02/18 at 11:42; Status DC Sennosides (Senna) 8.6 mg PRN BID PRN PO CONSTIPATION (1st Choice); Start at 16:45 Sucralfate (Carafate) 1 gm QIDACHS PO Last administered on 05/02/18 08:32; Start 04/30/18 at 16:30; Stop 05/02/18 at 11:42; Status DC Timolol Maleate (Timoptic 0.5% Oph) 1 drop DAILY OU Last administered on 05/04 08:38; Start 05/01/18 at 09:00 Potassium Chloride (Klor-Con) 20 meq 1X ONCE PO Last administered on 04/30/18 17:03; Start 04/30/18 at 16:15; Stop 04/30/18 at 16:16; Status DC Info (Anti-Coagulation Monitoring By Pharmacy) 1 each PRN DAILY PRN MC SEE COMMENTS Last administered on 05/01/18at 12:54; Start 04/30/18 at 16:15 Oxycodone HCl (Roxicodone) 5 mg PRN Q4HRS PRN PO PAIN MILD TO MOD Last administered on 05/03/18at 05:00; Start 05/01/18 at 10:30 Methylprednisolone Sodium Succinate (SOLU-Medrol 125MG VIAL) 60 mg Q8HRS IV Last administered on 05/04/18 06:00; Start 05/01/18 at 11:00 Potassium Chloride (Klor-Con) 20 meq 1X ONCE PO Last administered on at 11:36; Start 05/01/18 at 11:30; Stop 05/01/18 at 11:32; Status DC Sucralfate (Carafate) 1 gm TIDAC PO Last administered on 05/04/18at 05:51; Start 05/02/18 at 12:00 Bisacodyl (Dulcolax Tab) 10 mg 1X ONCE PO Last administered on 05/02/18at 13:50 ; Start 05/02/18 at 13:00; Stop 05/02/18 at 13:01; Status DC Oxycodone HCl (Roxicodone) 10 mg PRN Q4HRS PRN PO PAIN SEVERE Last administered on 05/04/18at 05:51; Start 05/03/18 at 08:30 Zolpidem Tartrate (Ambien) 5 mg PRN QHS PRN PO INSOMNIA; Start 05/04/18 at 09: 15 Active Scripts Active Reported Ondansetron Odt (Ondansetron) 4 Mg Tab.rapdis 1 Tab PO PRN Q4HRS PRN Tums Dual Action Tablet Chew (Famotidine/Ca Carb/Mag Hydrox) 1 Each Tab.chew 1 Each PO PRN Q6HRS PRN Montelukast Sodium Tablet (Montelukast Sodium) 10 Mg Tablet 1 Tab PO DAILY Sennosides 8.6 Mg Tablet 8.6 Mg PO BID PRN Remeron (Mirtazapine) 15 Mg Tablet 45 Mg PO QHS Oxycodone Hcl 5 Mg Capsule 5 Mg PO PRN Q4HRS PRN Latanoprost 2.5 Ml Drops 1 Drop EACHEYE QHS Losartan Potassium 50 Mg Tablet 50 Mg PO DAILY Ferrous Sulfate 325 Mg Tablet 1 Tab PO DAILY Sore Throat Lozenge (Benzocaine/Menthol) 1 Each Lozenge 1 Each MM PRN Q2-4HRS PRN Vitamin D3 (Cholecalciferol (Vitamin D3)) 1,000 Unit Tablet 1 Tab PO DAILY Linzess (Linaclotide) 145 Mcg Capsule 145 Mcg PO DAILY07 Ranitidine Hcl 150 Mg Tablet 1 Tab PO TID Miralax (Polyethylene Glycol 3350) 17 Gm Powd.pack 1 Packet PO PRN DAILY PRN Milk Of Magnesia (Magnesium Hydroxide) 400 Mg/5 Ml Oral.susp 400 Mg PO PRN DAILY PRN Celexa (Citalopram Hydrobromide) 20 Mg Tablet 2 Tab PO DAILY Amlodipine Besylate 10 Mg Tablet 10 Mg PO DAILYWSUP Methotrexate (Methotrexate Sodium) 2.5 Mg Tablet 5 Tab PO WEEKLY Anastrozole 1 Mg Tablet 1 Tab PO DAILY Zostrix (Capsaicin) 56.6 Gm Cream..g. 56.6 Gm TP PRN TID PRN Voltaren (Diclofenac Sodium) 100 Gm Gel..gram. 1 Gm TP PRN BID PRN Potassium Chloride 20 Meq Tablet.er 20 Meq PO DAILY Milk Of Magnesia (Magnesium Hydroxide) 400 Mg/5 Ml Oral.susp 400 Mg PO DAILY Magnesium Oxide 400 Mg Tablet 1 Tab PO DAILY Duoneb 0.5-3(2.5) Mg/3 Ml (Albuterol/Ipratropium) 3 Ml Ampul.neb 3 Ml NEB PRN QID PRN Hydralazine Hcl 100 Mg Tablet 75 Mg PO QID Vitamin B-12 (Cyanocobalamin (Vitamin B-12)) 1,000 Mcg Tablet 1 Tab PO DAILY Flonase Allergy Relief (Fluticasone Propionate) 9.9 Ml [place].susp 2 Sprays NS DAILY Zyrtec (Cetirizine Hcl) 10 Mg Tablet 1 Tab PO QHS Tylenol (Acetaminophen) 325 Mg Tablet 650 Mg PO PRN Q6HRS PRN Carafate (Sucralfate) 1 Gm Tablet 1 Tab PO QID Buspirone Hcl 10 Mg Tablet 20 Mg PO TID Humira (Adalimumab) 40 Mg/0.8 Ml Kit 40 Mg SQ Q2WKS Eliquis (Apixaban) 5 Mg Tablet 5 Mg PO BID Timoptic 0.5% Ocudose Drop (Timolol Maleate/Pf) 1 Each Droperette 1 Each OU DAILY Pantoprazole Sodium 40 Mg Tablet.dr 40 Mg PO BID Folic Acid 1 Mg Tablet 1 Mg PO DAILY Allergies Allergies: Coded Allergies: Penicillins (Verified Allergy, Intermediate, hives, TOLERATES CEFTRIAXONE , 07/27/17) orange juice (Verified Allergy, Intermediate, 02/10/17) Vitals VITALS Vital Signs Date Time Temp Pulse Resp B/P (MAP) Pulse Ox O2 Delivery O2 Flow Rate FiO2 05/04/18 08:37 64 158/90 05/04/18 07:46 98.5 18 97 Room Air 98.5 Labs Labs Laboratory Tests Test 05/02/18 11:31 05/02/18 14:10 Glucose (Fingerstick) 207 mg/dL (70-99) Erythrocyte Sedimentation Rate 47 (0-25) Creatine Kinase 72 U/L (26-192) RIVAS HERNANDEZ MD May 04, 2018 10:05
[2018-05-04 11:00] VITALS: BP 160/88
--- NOTE | 2018-05-04 12:31 | PDOC ---
Subjective: Subjective: Chest pain, didn't sleep well. Hungry - lunch tray delivered but she would like extra mashed potatoes, extra dessert, and a coke. Objective: Objective: Reviewed oncology note - holding Arimidex. Vital Signs: Vital Signs Date Time Temp Pulse Resp B/P (MAP) Pulse Ox O2 Delivery O2 Flow Rate FiO2 05/04/18 11:41 97 Room Air 05/04/18 08:37 64 158/90 05/04/18 07:46 98.5 18 98.5 Labs: URINE CULTURE Final Final report URINE CULTURE RES 1 Final Proteus mirabilis PE: GEN: NAD HEART: RRR - chest wall tender to very light touch NEURO/PSYCH: A & O 3 A/P: Chronic pain H/o GERD and constipation Breast cancer, RA UTI -- Continue same per GI. DANELLE FLOYD May 04, 2018 12:31
--- NOTE | 2018-05-04 14:05 | RAD ---
EXAM: Right upper extremity venous Doppler. HISTORY: Right upper extremity pain/swelling. COMPARISON: None. FINDINGS: Grayscale and Doppler analysis of the right upper extremity deep venous system was performed with graded compression and augmentation. The internal jugular, subclavian, axillary, brachial, basilic, cephalic, radial and ulnar veins were assessed. There is no evidence of deep venous thrombosis. IMPRESSION: 1. No evidence of deep venous thrombosis. Electronically signed by: Tresa Mason MD (05/04/2018 2:01 PM) [place] [id number]
[2018-05-04 14:26] VITALS: BP 138/71
[2018-05-04] MEDS: amLODIPine BESYLATE 10 MG TABLET PO SCH (17:17)
[2018-05-04 19:00] VITALS: BP 156/85
[2018-05-04 19:14] LABS: ANA INTERP Negative (.)
--- NOTE | 2018-05-04 20:36 | PDOC ---
GENERAL General: vss and afebrile. awake and alert and ongoing chest pain. awaiting rheum and oncology opinion. wants something for sleep. repeat ct chest without etiology for pain. continue present and await further advice. VITAL SIGNS Vital Signs: Vital Signs Date Time Temp Pulse Resp B/P (MAP) Pulse Ox O2 Delivery O2 Flow Rate FiO2 05/04/18 19:33 18 100 Room Air 05/04/18 19:00 98.0 70 156/85 (108) 98.0 I & O I & O Intake and Output 05/04/18 07:00 Intake Total 1340 ml Balance 1340 ml Intake Oral 1340 ml # Voids 7 ALLERGIES Allergies: Allergies Coded Allergies Type Severity Reaction Last Updated Verified Penicillins Allergy Intermediate hives, TOLERATES CEFTRIAXONE 07/27/17 Yes orange juice Allergy Intermediate 02/10/17 Yes MEDS Medications: Current Medications Medications (Trade) Dose Ordered Sig/Celina Start Time Stop Time Status Last Admin Dose Admin Acetaminophen (Tylenol) 650 mg PRN Q6HRS PRN 04/30/18 15:30 05/04/18 16:35 650 MG Albuterol Sulfate (Ventolin Neb Soln) 3 mg PRN QID PRN 04/30/18 15:30 Amlodipine Besylate (Norvasc) 10 mg DAILYWSUP 04/30/18 17:00 05/04/18 17:17 10 MG Anastrozole (Arimidex) 1 mg DAILY 05/01/18 09:00 05/04/18 09:54 DC 05/03/18 08:53 1 MG Apixaban (Eliquis) 5 mg BID 04/30/18 21:00 05/04/18 08:40 5 MG Bisacodyl (Dulcolax Tab) 10 mg 1X ONCE 05/02/18 13:00 05/02/18 13:01 DC 05/02/18 13:50 10 MG Buspirone HCl (Buspar) 20 mg TID 04/30/18 16:00 05/04/18 13:25 20 MG Calcium Carbonate/ Glycine (Tums) 1,000 mg PRN AFTMEALHC PRN 04/30/18 16:45 05/03/18 12:50 1,000 MG Capsaicin (Zostrix) 1 meño PRN TID PRN 04/30/18 21:00 Celecoxib (CeleBREX) 200 mg BID 04/30/18 15:00 05/04/18 08:37 200 MG Cetirizine HCl (ZyrTEC) 10 mg QHS 04/30/18 21:00 05/03/18 21:23 10 MG Ciprofloxacin (Cipro) 500 mg BID 05/04/18 21:00 Citalopram Hydrobromide (CeleXA) 40 mg DAILY 05/01/18 09:00 05/04/18 08:37 40 MG Cyanocobalamin (Vitamin B-12) 1,000 mcg DAILY 05/01/18 09:00 05/04/18 08:36 1,000 MCG Diclofenac Sodium (Voltaren) 1 meño PRN BID PRN 04/30/18 15:30 Ergocalciferol (Vitamin D2) 50,000 unit WEEKLY 05/07/18 09:00 UNV Famotidine (Pepcid) 20 mg TID 04/30/18 21:00 05/02/18 11:42 DC 05/02/18 08:31 20 MG Fentanyl Citrate (Fentanyl 2ml Vial) 75 mcg PRN Q2HR PRN 04/30/18 15:00 Ferrous Sulfate (Feosol) 325 mg DAILY08 05/01/18 08:00 05/04/18 08:36 325 MG Fluticasone Propionate (Flonase) 2 spray DAILY 05/01/18 09:00 Folic Acid (Folic Acid) 1 mg DAILY 05/01/18 09:00 05/04/18 08:36 1 MG Hydralazine HCl (Apresoline) 75 mg QID 04/30/18 17:00 05/04/18 17:18 75 MG Info (Anti-Coagulation Monitoring By Pharmacy) 1 each PRN DAILY PRN 04/30/18 16:15 05/01/18 12:54 1 EACH Info (CONTRAST GIVEN -- Rx MONITORING) 1 each PRN DAILY PRN 04/30/18 14:00 05/02/18 13:59 DC Iohexol (Omnipaque 350 Mg/ml) 75 ml 1X ONCE 04/30/18 14:00 04/30/18 14:01 DC 04/30/18 14:09 75 ML Latanoprost (Xalatan) 1 drop QHS 04/30/18 21:00 05/03/18 21:22 1 DROP Losartan Potassium (Cozaar) 50 mg DAILY 05/01/18 09:00 05/04/18 08:36 50 MG Magnesium Hydroxide (Milk Of Magnesia) 400 mg PRN DAILY PRN 04/30/18 15:30 Magnesium Oxide (Magnesium Oxide) 400 mg DAILY 05/01/18 09:00 05/04/18 08:36 400 MG Methotrexate (Rheumatrex) 12.5 mg Rosales 05/01/18 09:00 05/01/18 09:33 12.5 MG Methylprednisolone Sodium Succinate (SOLU-Medrol 125MG VIAL) 60 mg Q8HRS 05/01/18 11:00 05/04/18 13:26 60 MG Mirtazapine (Remeron) 45 mg QHS 04/30/18 21:00 05/03/18 21:23 45 MG Montelukast Sodium (Singulair) 10 mg QHS 04/30/18 21:00 05/03/18 21:23 10 MG Nitroglycerin (Nitrostat) 0.4 mg PRN Q5MIN PRN 04/30/18 10:15 04/30/18 10:22 0.4 MG Non-Formulary Medication (Adalimumab (Humira)) 40 mg Q2WKS 05/14/18 09:00 UNV Non-Formulary Medication (Linaclotide (Linzess)) 145 mcg DAILY07 05/01/18 07:00 UNV Ondansetron HCl (Zofran Odt) 4 mg PRN Q4HRS PRN 04/30/18 15:30 Ondansetron HCl (Zofran) 4 mg PRN Q8HRS PRN 04/30/18 11:30 05/01/18 11:29 DC Oxycodone HCl (Roxicodone) 10 mg PRN Q4HRS PRN 05/03/18 08:30 05/04/18 18:33 10 MG Pantoprazole Sodium (Protonix) 40 mg BIDAC 04/30/18 16:30 05/04/18 16:35 40 MG Polyethylene Glycol (miraLAX PACKET) 17 gm DAILY 05/01/18 09:00 05/04/18 08:47 17 GM Potassium Chloride (Klor-Con) 20 meq 1X ONCE 05/01/18 11:30 05/01/18 11:32 DC 05/01/18 11:36 20 MEQ Sennosides (Senna) 8.6 mg PRN BID PRN 04/30/18 16:45 Sodium Chloride 1,000 ml @ 1,000 mls/hr 1X ONCE 04/30/18 11:30 04/30/18 12:29 DC Sucralfate (Carafate) 1 gm TIDAC 05/02/18 12:00 05/04/18 16:35 1 GM Throat Lozenges (Cepacol Sore Throat Lozenge) 1 perry PRN Q2HRS PRN 04/30/18 15:30 Timolol Maleate (Timoptic 0.5% Ophth) 1 drop DAILY 05/01/18 09:00 05/04/18 08:38 1 DROP Vitamin D (Vitamin D3) 1,000 unit DAILY 05/01/18 09:00 05/04/18 08:36 1,000 UNIT Zolpidem Tartrate (Ambien) 5 mg PRN QHS PRN 05/04/18 09:15 JO MORENO MD May 04, 2018 20:36
[2018-05-04] MEDS: CIPROFLOXACIN HCL 250 MG TABLET. PO SCH (22:20)
[2018-05-04] MEDS: BENZOCAINE/MENTHOL LOZENGE. MM PRN (22:20)
[2018-05-04] MEDS: MONTELUKAST SODIUM 10 MG TABLET. PO SCH (22:20)
[2018-05-04] MEDS: MIRTAZAPINE 15 MG TABLET PO SCH (22:20)
[2018-05-04] MEDS: CETIRIZINE HCL 10 MG TABLET. PO SCH (22:21)
[2018-05-04] MEDS: ZOLPIDEM 5 MG TABLET. PO PRN (22:21)
[2018-05-04] MEDS: LATANOPROST 0.005% OPHTH SOLUTION 2.5ML BOTTLE. OU SCH (22:23)
[2018-05-04 23:00] VITALS: BP 125/86
[2018-05-05] MEDS: oxyCODONE IR 5 MG TABLET PO PRN ×4 (02:49→21:44)
[2018-05-05 03:01] VITALS: BP 168/95
[2018-05-05] MEDS: fentaNYL PF VIAL 100 MCG/2 ML VIAL IV PRN ×4 (05:35→17:33)
[2018-05-05] MEDS: methylPREDNISolone SOD SUCC PF 125 MG/2 ML VIAL. IV SCH (05:36)
[2018-05-05] MEDS: SUCRALFATE 1 GM TABLET. PO SCH ×3 (05:36→17:34)
[2018-05-05] MEDS: PANTOPRAZOLE 40 MG TABLET.DR. PO SCH ×2 (05:36→17:34)
[2018-05-05 07:00] VITALS: BP 173/98
[2018-05-05] MEDS: NON FORMULARY ITEM (Linaclotide (Linzess) 145 MCG) PO SCH (07:00)
[2018-05-05] MEDS: ACETAMINOPHEN 325 MG TABLET. PO PRN ×2 (09:09→15:09)
[2018-05-05] MEDS: CELECOXIB 100 MG CAPSULE. PO SCH ×2 (09:17→21:45)
[2018-05-05] MEDS: hydrALAZINE 25 MG TABLET PO SCH ×4 (09:17→21:44)
[2018-05-05] MEDS: CITALOPRAM 20 MG TABLET. PO SCH (09:17)
[2018-05-05] MEDS: FOLIC ACID 1 MG TABLET. PO SCH (09:18)
[2018-05-05] MEDS: CYANOCOBALAMIN (VITAMIN B-12) 1,000 MCG TABLET. PO SCH (09:18)
[2018-05-05] MEDS: APIXABAN 5 MG TABLET. PO SCH ×2 (09:18→21:45)
[2018-05-05] MEDS: FERROUS SULFATE 325 MG TABLET. PO SCH (09:18)
[2018-05-05] MEDS: CHOLECALCIFEROL (VITAMIN D3) 1,000 UNIT TABLET PO SCH (09:18)
[2018-05-05] MEDS: LOSARTAN POTASSIUM 50 MG TABLET. PO SCH (09:18)
[2018-05-05] MEDS: POTASSIUM CHLORIDE 20 MEQ TABLET.ER. PO SCH (09:18)
[2018-05-05] MEDS: CIPROFLOXACIN HCL 250 MG TABLET. PO SCH ×2 (09:18→21:45)
[2018-05-05] MEDS: POLYETHYLENE GLYCOL 3350 17 GM PACKET. PO SCH (09:19)
[2018-05-05] MEDS: MAGNESIUM OXIDE 400 MG TABLET PO SCH (09:19)
[2018-05-05] MEDS: TIMOLOL 0.5% OPHTH SOLUTION 5ML BOTTLE. OU SCH (09:20)
[2018-05-05] MEDS: LIDOCAINE (700MG/PATCH) PATCH. TD SCH (09:35)
--- NOTE | 2018-05-05 09:56 | PDOC ---
SUBJECTIVE Subjective S: Chest pain still bothering her, waiting for rheumatology consult O: Physical exam: Gen.: Elderly female, eating breakfast, resting in bed Lungs: Breathing comfortably Psychiatric: Pleasant mood and affect Labs: Reviewed Rads: Right upper extremity ultrasound showed no evidence of DVT Assessment and Plan: She is a 72-year-old female with a history of stage I right breast cancer treated with lumpectomy 02/08, hormone positive on Arimidex since February, Arimidex can increase aches and pains, she is admitted with musculoskeletal chest pain that may be costochondritis, and she's on apixaban with history of A. fib and remote history of right lower extremity DVT, UTI and superficial venous thrombophlebitis near the elbow on the right. Breast cancer: We'll hold Arimidex due to aches and pains, this can be restarted in follow-up as needed based on her chest pain, do suspect it is probably not related but would like to avoid possible contribution from Arimidex at the moment History of A. fib and remote history of DVT: On apixaban Musculoskeletal chest pain: defer to others, pending rheum consult UTI: on cipro superficial venous thrombo-phlebitis: warm packs tid ok, on anticoagulation Disposition: Per others, can follow up with [facility] oncology upon discharge Thank you kindly, and please don't hesitate to call with any further questions. OBJECTIVE Vital Signs Vital Signs Date Time Temp Pulse Resp B/P (MAP) Pulse Ox O2 Delivery O2 Flow Rate FiO2 05/05/18 09:18 65 173/98 05/05/18 09:17 65 173/98 05/05/18 09:12 20 94 Room Air 05/05/18 08:02 20 94 Room Air 05/05/18 08:00 Room Air 05/05/18 07:02 20 91 Room Air 05/05/18 07:00 98.2 65 16 173/98 (123) 94 Room Air 98.2 05/05/18 06:05 18 91 Room Air 05/05/18 05:35 18 91 Room Air 05/05/18 03:01 96.6 70 20 168/95 (119) 91 Room Air 96.6 05/05/18 02:49 18 96 Room Air 05/04/18 23:00 98.1 64 20 125/86 (99) 96 Room Air 98.1 05/04/18 22:47 18 100 Room Air 05/04/18 22:20 70 156/85 05/04/18 20:00 Room Air 05/04/18 19:00 98.0 70 20 156/85 (108) 100 Room Air 98.0 05/04/18 18:33 98 Room Air 05/04/18 17:18 71 154/79 05/04/18 17:17 71 154/79 05/04/18 14:26 98.4 62 18 138/71 (93) 98 Room Air 98.4 05/04/18 14:10 Room Air 05/04/18 13:25 94 151/92 05/04/18 11:00 98.5 69 18 160/88 (112) 97 Room Air 98.5 05/04/18 10:19 97 Room Air I & O Intake and Output 05/05/18 07:00 Intake Total 880 ml Balance 880 ml Intake Oral 880 ml # Voids 4 # Bowel Movements 1 RIVAS RUCKER MD May 05, 2018 09:56
[2018-05-05 11:00] VITALS: BP 153/89
--- NOTE | 2018-05-05 11:30 | NUR ---
JAIME faxed updated clinicals to Lauren, ; fax [phone]. Will continue to follow.
[2018-05-05] MEDS: busPIRone 10 MG TABLET. PO SCH ×3 (11:48→21:44)
--- NOTE | 2018-05-05 12:45 | PDOC ---
Subjective: Subjective: Chest pain. Eating and stooling without issue. Objective: Vital Signs: Vital Signs Date Time Temp Pulse Resp B/P (MAP) Pulse Ox O2 Delivery O2 Flow Rate FiO2 05/05/18 12:17 96 Room Air 05/05/18 11:00 98.5 66 17 153/89 (110) 98.5 PE: GEN: NAD, in recliner, eating lunch - chest wall tender to touch NEURO/PSYCH: A & O 3 A/P: Chronic pain Breast cancer ?RA - NEW neg UTI -- Continue same per GI. DANELLE FLOYD May 05, 2018 12:45
--- NOTE | 2018-05-05 13:21 | PDOC ---
PULMONARY PROGRESS NOTES Subjective unchanged cw pain no soa Vitals Vital Signs Date Time Temp Pulse Resp B/P (MAP) Pulse Ox O2 Delivery O2 Flow Rate FiO2 05/05/18 12:17 96 Room Air 05/05/18 11:00 98.5 66 17 153/89 (110) 98.5 General: Alert, No acute distress Lungs: Clear Cardiovascular: S1 Abdomen: Soft, Other (obese) Neuro Exam: Alert Extremities: No Edema Skin: Warm Medications Active Scripts Medications Dose Route/Sig Max Daily Dose Days Date Category Ondansetron Odt (Ondansetron) 4 Mg Tab.rapdis 1 Tab PO PRN Q4HRS PRN 04/30/18 Reported Tums Dual Action Tablet Chew (Famotidine/Ca Carb/Mag Hydrox) 1 Each Tab.chew 1 Each PO PRN Q6HRS PRN 04/30/18 Reported Montelukast Sodium Tablet (Montelukast Sodium) 10 Mg Tablet 1 Tab PO DAILY 04/30/18 Reported Sennosides 8.6 Mg Tablet 8.6 Mg PO BID PRN 04/30/18 Reported Remeron (Mirtazapine) 15 Mg Tablet 45 Mg PO QHS 04/30/18 Reported Oxycodone Hcl 5 Mg Capsule 5 Mg PO PRN Q4HRS PRN 04/30/18 Reported Latanoprost 2.5 Ml Drops 1 Drop EACHEYE QHS 04/30/18 Reported Losartan Potassium 50 Mg Tablet 50 Mg PO DAILY 04/30/18 Reported Ferrous Sulfate 325 Mg Tablet 1 Tab PO DAILY 04/30/18 Reported Sore Throat Lozenge (Benzocaine/Menthol) 1 Each Lozenge 1 Each MM PRN Q2-4HRS PRN 04/30/18 Reported Vitamin D3 (Cholecalciferol (Vitamin D3)) 1,000 Unit Tablet 1 Tab PO DAILY 04/30/18 Reported Linzess (Linaclotide) 145 Mcg Capsule 145 Mcg PO DAILY07 04/30/18 Reported Ranitidine Hcl 150 Mg Tablet 1 Tab PO TID 04/30/18 Reported Miralax (Polyethylene Glycol 3350) 17 Gm Powd.pack 1 Packet PO PRN DAILY PRN 04/30/18 Reported Milk Of Magnesia (Magnesium Hydroxide) 400 Mg/5 Ml Oral.susp 400 Mg PO PRN DAILY PRN 04/30/18 Reported Celexa (Citalopram Hydrobromide) 20 Mg Tablet 2 Tab PO DAILY 04/30/18 Reported Amlodipine Besylate 10 Mg Tablet 10 Mg PO DAILYWSUP 04/30/18 Reported Methotrexate (Methotrexate Sodium) 2.5 Mg Tablet 5 Tab PO WEEKLY 04/30/18 Reported Anastrozole 1 Mg Tablet 1 Tab PO DAILY 04/30/18 Reported Zostrix (Capsaicin) 56.6 Gm Cream..g. 56.6 Gm TP PRN TID PRN 07/22/17 Reported Voltaren (Diclofenac Sodium) 100 Gm Gel..gram. 1 Gm TP PRN BID PRN 07/22/17 Reported Potassium Chloride 20 Meq Tablet.er 20 Meq PO DAILY 07/22/17 Reported Milk Of Magnesia (Magnesium Hydroxide) 400 Mg/5 Ml Oral.susp 400 Mg PO DAILY 07/22/17 Reported Magnesium Oxide 400 Mg Tablet 1 Tab PO DAILY 07/22/17 Reported Duoneb 0.5-3(2.5) Mg/3 Ml (Albuterol/Ipratropium) 3 Ml Ampul.neb 3 Ml NEB PRN QID PRN 07/22/17 Reported Hydralazine Hcl 100 Mg Tablet 75 Mg PO QID 07/22/17 Reported Vitamin B-12 (Cyanocobalamin (Vitamin B-12)) 1,000 Mcg Tablet 1 Tab PO DAILY 07/22/17 Reported Flonase Allergy Relief (Fluticasone Propionate) 9.9 Ml [place].susp 2 Sprays NS DAILY 06/09/17 Reported Zyrtec (Cetirizine Hcl) 10 Mg Tablet 1 Tab PO QHS 06/09/17 Reported Tylenol (Acetaminophen) 325 Mg Tablet 650 Mg PO PRN Q6HRS PRN 06/09/17 Reported Carafate (Sucralfate) 1 Gm Tablet 1 Tab PO QID 02/10/17 Reported Buspirone Hcl 10 Mg Tablet 20 Mg PO TID 02/10/17 Reported Humira (Adalimumab) 40 Mg/0.8 Ml Kit 40 Mg SQ Q2WKS 06/15/16 Reported Eliquis (Apixaban) 5 Mg Tablet 5 Mg PO BID 06/15/16 Reported Timoptic 0.5% Ocudose Drop (Timolol Maleate/Pf) 1 Each Droperette 1 Each OU DAILY 09/15/13 Reported Pantoprazole Sodium 40 Mg Tablet.dr 40 Mg PO BID 09/15/13 Reported Folic Acid 1 Mg Tablet 1 Mg PO DAILY 09/15/13 Reported Impression . 1. Chest pain, likely costochondritis No evidence of pulmonary embolism and no parenchymal abnormality seen on the CT chest. 2. Morbid obesity. Denies symptoms of obstructive sleep apnea. 3. No significant tobacco history. 4. Remote h/o DVT 5. A-fib, on eliquis 6. h/o breast cancer Plan . 1. Nonsteroidal anti-inflammatory per Appl. 2. From a pulmonary standpoint, no further recommendations. 3. Weight loss is advised. 4. We will see her as needed. ÁNGEL VILLALOBOS MD May 05, 2018 13:21
[2018-05-05 15:00] VITALS: BP 160/88
[2018-05-05] MEDS: FLUTICASONE 50MCG/NASAL SPRAY 16GM BOTTLE. NS SCH (15:10)
[2018-05-05] MEDS: ANTI-COAG MONITOR BY PHARMACY. MC PRN (15:28)
[2018-05-05] MEDS: amLODIPine BESYLATE 10 MG TABLET PO SCH (17:34)
[2018-05-05 19:00] VITALS: BP 165/103
--- NOTE | 2018-05-05 20:05 | PN ---
DATE: 05/05/2018 LOCATION: She is in room 524. SUBJECTIVE: The patient is awake, alert, continues to have pain, which is unabated with any of the remedies we have tried to date. Oncology did see the patient yesterday per nursing and felt the anastrozole may be causing the pain and it has been held. OBJECTIVE: CHEST: Clear. She has continued chest wall tenderness. HEART: Regular. ABDOMEN: Benign. EXTREMITIES: Edema is the same. Rheumatoid arthritic changes in the extremities is the same. She does have urinary tract infection and was started on treatment for the same. IMPRESSION: 1. Chest wall pain of uncertain etiology. 2. Recent carcinoma of the breast. 3. Urinary tract infection. 4. Multiple other problems as outlined prior. PLAN: We will add Lidoderm patches today and see how she does without the anastrozole over the next 24 hours with likely discharge tomorrow, although this would be very disappointing if we cannot get any kind of answer or control this pain prior to discharge. JO MORENO MD DR: MAXIMILIANO/randall JOB#: [id number] / [id number]
[2018-05-05] MEDS ORDERED: PATCH REMOVAL. MC SCH (21:00)
[2018-05-05] MEDS: MONTELUKAST SODIUM 10 MG TABLET. PO SCH (21:44)
[2018-05-05] MEDS: MIRTAZAPINE 15 MG TABLET PO SCH (21:45)
[2018-05-05] MEDS: ZOLPIDEM 5 MG TABLET. PO PRN (21:45)
[2018-05-05] MEDS: CETIRIZINE HCL 10 MG TABLET. PO SCH (21:45)
[2018-05-05] MEDS: BENZOCAINE/MENTHOL LOZENGE. MM PRN (21:45)
[2018-05-05] MEDS: LATANOPROST 0.005% OPHTH SOLUTION 2.5ML BOTTLE. OU SCH (21:46)
[2018-05-05 23:00] VITALS: BP 158/90
[2018-05-06] MEDS: fentaNYL PF VIAL 100 MCG/2 ML VIAL IV PRN ×4 (01:08→18:38)
[2018-05-06] MEDS: oxyCODONE IR 5 MG TABLET PO PRN ×3 (02:56→14:06)
[2018-05-06 03:00] VITALS: BP 145/78
[2018-05-06 04:52] LABS: HEMOGLOBIN 12.8 g/dL (12.0-15.5); RED BLOOD COUNT 4.08 x10^6/uL (3.50-5.40); RED CELL DISTRIBUTION WIDTH 15.4 % (11.5-14.5); WHITE BLOOD COUNT 9.9 x10^3/uL (4.0-11.0)
[2018-05-06] MEDS: PANTOPRAZOLE 40 MG TABLET.DR. PO SCH ×2 (06:35→16:30)
[2018-05-06] MEDS: SUCRALFATE 1 GM TABLET. PO SCH ×3 (06:35→16:30)
[2018-05-06] MEDS: NON FORMULARY ITEM (Linaclotide (Linzess) 145 MCG) PO SCH (07:00)
[2018-05-06] MEDS: CELECOXIB 100 MG CAPSULE. PO SCH (10:47)
[2018-05-06] MEDS: FERROUS SULFATE 325 MG TABLET. PO SCH (10:47)
[2018-05-06] MEDS: busPIRone 10 MG TABLET. PO SCH ×2 (10:48→16:09)
[2018-05-06] MEDS: CYANOCOBALAMIN (VITAMIN B-12) 1,000 MCG TABLET. PO SCH (10:49)
[2018-05-06] MEDS: CHOLECALCIFEROL (VITAMIN D3) 1,000 UNIT TABLET PO SCH (10:49)
[2018-05-06] MEDS: BENZOCAINE/MENTHOL LOZENGE. MM PRN (10:49)
[2018-05-06] MEDS: CITALOPRAM 20 MG TABLET. PO SCH (10:50)
[2018-05-06] MEDS: APIXABAN 5 MG TABLET. PO SCH (10:50)
[2018-05-06] MEDS: CIPROFLOXACIN HCL 250 MG TABLET. PO SCH (10:50)
[2018-05-06] MEDS: FOLIC ACID 1 MG TABLET. PO SCH (10:52)
[2018-05-06] MEDS: MAGNESIUM OXIDE 400 MG TABLET PO SCH (10:52)
[2018-05-06] MEDS: LIDOCAINE (700MG/PATCH) PATCH. TD SCH (10:52)
[2018-05-06] MEDS: POTASSIUM CHLORIDE 20 MEQ TABLET.ER. PO SCH (10:53)
[2018-05-06] MEDS: FLUTICASONE 50MCG/NASAL SPRAY 16GM BOTTLE. NS SCH (10:53)
[2018-05-06] MEDS: TIMOLOL 0.5% OPHTH SOLUTION 5ML BOTTLE. OU SCH (10:54)
[2018-05-06] MEDS: POLYETHYLENE GLYCOL 3350 17 GM PACKET. PO SCH (10:58)
[2018-05-06 11:00] VITALS: BP 177/107
[2018-05-06] MEDS: hydrALAZINE 25 MG TABLET PO SCH ×3 (11:03→16:12)
[2018-05-06] MEDS: LOSARTAN POTASSIUM 50 MG TABLET. PO SCH (11:04)
[2018-05-06 12:16] VITALS: BP 177/107
--- NOTE | 2018-05-06 13:09 | PDOC ---
Objective: Objective: Reviewed w/ RN - didn't sleep well last night but has been sleeping today w/ pain meds. Vital Signs: Vital Signs Date Time Temp Pulse Resp B/P (MAP) Pulse Ox O2 Delivery O2 Flow Rate FiO2 05/06/18 12:16 Labs: Laboratory Tests Test 05/06/18 04:05 White Blood Count 9.9 x10^3/uL Red Blood Count 4.08 x10^6/uL Hemoglobin 12.8 g/dL Hematocrit 39.0 % Mean Corpuscular Volume 96 fL Mean Corpuscular Hemoglobin 31 pg Mean Corpuscular Hemoglobin Concent 33 g/dL Red Cell Distribution Width 15.4 % Platelet Count 253 x10^3/uL PE: GEN: NAD NEURO/PSYCH: sleeping, not awakened A/P: Chronic pain - ?costochondritis Breast cancer UTI -- Continue GI support. DANELLE FLOYD May 06, 2018 13:08
[2018-05-06 15:00] VITALS: BP 117/68
[2018-05-06] MEDS: amLODIPine BESYLATE 10 MG TABLET PO SCH (17:00)
[2018-05-06 19:00] VITALS: BP 133/73
[2018-05-07] MEDS ORDERED: ERGOCALCIFEROL (VITAMIN D2) 50,000 UNIT CAPSULE. PO SCH (09:00)
[2018-05-14] MEDS ORDERED: NON FORMULARY ITEM (Adalimumab (Humira) 40 MG) SQ SCH (09:00)
--- NOTE | 2018-05-19 22:49 | DS ---
DATE OF DISCHARGE: 05/06/2018 PRIMARY DIAGNOSIS: Chest wall pain felt due to costochondritis. ADDITIONAL DIAGNOSES: Rheumatoid arthritis, history of deep venous thrombosis, history of atrial fibrillation, hyperlipidemia, hypertension, pacemaker placement due to bradycardia, urinary tract infections and recent right breast cancer. CHIEF COMPLAINT AND HISTORY OF PRESENT ILLNESS: This 72-year-old black female is well known to me from followup in the retirement. She was admitted through the Emergency Room on the day of admission with chest pain starting after breakfast. It was worse with breathing and movement and had chest wall tenderness throughout the stay. SUMMARY OF STAY: The patient was admitted, had an exhaustive workup with multiple consultations including GI, who felt this was most likely costochondritis; Pulmonary, who felt the same; Oncology, who felt it could possibly be due to her Arimidex and held it for a couple of days during the stay, without improvement and Cardiology, who felt the pain was noncardiac. We tried to get Rheumatology by, but it did not happen during the stay. She was treated with nonsteroidals, steroids as well as Lidoderm patches, without really significant improvement in the pain during the stay. It was finally elected to treat her with pain medicines with further followup at the retirement, as there was no definite feeling like this was definite problem as far as life threatening. She did have an upper extremity ultrasound that was negative for DVT, chest CT that was negative and chest CTA that was likewise negative. DISPOSITION: The patient is discharged to home. She is discharged on a regular diet, activity as tolerated. DISCHARGE MEDICATIONS: Listed on the med rec and have been addressed. We will continue to follow her at the retirement. JO MORENO MD DR: MAXIMILIANO/randall JOB#: [id number] / [id number]
== END 2018-05-06 19:35 | DRG 206 ==
LOC: ER 09:43 → 2 SOUTH 11:17 → 5 NORTH 05-02 15:42
PROVIDERS: ADMIT Family Medicine; ATTEND Family Medicine
DX: M94.0 Chondrocostal junction syndrome [Tietze] (principal); I50.32 Chronic diastolic (congestive) heart failure; N39.0 Urinary tract infection, site not specified; Z68.42 Body mass index [BMI] 45.0-49.9, adult; I25.10 Atherosclerotic heart disease of native coronary artery without angina pectoris; M06.9 Rheumatoid arthritis, unspecified; M19.90 Unspecified osteoarthritis, unspecified site; E11.51 Type 2 diabetes mellitus with diabetic peripheral angiopathy without gangrene; E66.01 Morbid (severe) obesity due to excess calories; E78.00 Pure hypercholesterolemia, unspecified; E78.5 Hyperlipidemia, unspecified; Z96.659 Presence of unspecified artificial knee joint; F03.90 Unspecified dementia, unspecified severity, without behavioral disturbance, psychotic disturbance, mood disturbance, and anxiety; G89.29 Other chronic pain; F41.9 Anxiety disorder, unspecified; I11.0 Hypertensive heart disease with heart failure; I27.20 Pulmonary hypertension, unspecified; I48.0 Paroxysmal atrial fibrillation; F32.9 Major depressive disorder, single episode, unspecified; J45.909 Unspecified asthma, uncomplicated; K21.9 Gastro-esophageal reflux disease without esophagitis; Z79.01 Long term (current) use of anticoagulants; Z87.01 Personal history of pneumonia (recurrent); Z85.3 Personal history of malignant neoplasm of breast; Z80.41 Family history of malignant neoplasm of ovary; Z82.49 Family history of ischemic heart disease and other diseases of the circulatory system; Z83.3 Family history of diabetes mellitus; Z86.718 Personal history of other venous thrombosis and embolism; Z90.49 Acquired absence of other specified parts of digestive tract; Z90.710 Acquired absence of both cervix and uterus; Z95.0 Presence of cardiac pacemaker; Z88.0 Allergy status to penicillin; Z91.018 Allergy to other foods; Z98.51 Tubal ligation status; Z79.899 Other long term (current) drug therapy
CPT/HCPCS: 36415; 71045; 71250; 71275; 74018; 80048; 80053; 81001; 82550; 82962; 83690; 83880; 84484; 85025; 85027; 85379; 85651; 86038; 87086; 87186; 87641; 93005; 93971; 96374; 96376; J2930; J3010; J8610; Q9967; 99285-25

== ENCOUNTER → 2018-06-10 | Outpatient (CLI) | payer MEDICARE, OTHER ==
[~2018-06-10] MED LIST changes: +AMLO10TA8 PO; +ANAS1TAB PO; +CHOL10003 PO; +CITA20TA9 PO; +FAMO1TAB3 PO; +LATA2.5D3 EACHEYE; +LINZESS145 MCG PO; +LOSA-73 PO; +MIRT15TA PO; +MONT10TA9 PO; +ONDA4TAB12 PO; +OXYC5CAP PO; +POLY17PO29 PO; +SENN8.6T67 PO
--- NOTE | 2018-06-10 13:37 | CARD ---
MR#: [id number] Date of Study: 06/10/2018 Ordering Physician: SANTOS VITAL, Referring Physician: SANTOS VITAL, Tech: Kylah Martinez APPROVED REPORT EXAM: Two-dimensional and M-mode echocardiogram with Doppler and color Doppler. Other Information Quality : AverageHR: 80bpm Technically limited study due to body habitus INDICATION Atrial Fibrillation Surgery/Intervention Pacemaker: RISK FACTORS Hypertension 2D DIMENSIONS RVDd3.7 (2.9-3.5cm)Left Atrium(2D)3.7 (1.6-4.0cm) IVSd1.3 (0.7-1.1cm)Aortic Root(2D)3.3 (2.0-3.7cm) LVDd5.3 (3.9-5.9cm)LVOT Diameter2.1 (1.8-2.4cm) PWd0.8 (0.7-1.1cm)LVDs3.7 (2.5-4.0cm) FS (%) 31.7 %SV81.6 ml LVEF(%)59.2 (>50%) Aortic Valve AoV Peak Zbigniew.136.1cm/sAoV VTI23.6cm AO Peak GR.7.4mmHgLVOT Peak Zbigniew.112.2cm/s LVOT VTI 23.43cmAO Mean GR.4mmHg ODIN (VMAX)2.17gi3SGW (VTI)3.56cm2 Mitral Valve MV E Zmusbnxl25.5cm/sMV DECEL NWMZ186qk MV A Tnojqapj38.4cm/sMV GQD998se E/A Ratio0.5MVA (PHT)1.88cm2 TDI E/Lateral E'5.4E/Medial E'5.5 Pulmonary Valve PV Peak Jmahizhm503.6cm/sPV Peak Grad.5mmHg Tricuspid Valve TR P. Omiwdyfu711en/sRAP JQUPDZJS7sbQj TR Peak Gr.36kkDqQCJN22qwMg Pulmonary Vein S1 Mobzzmwf34.7cm/sD2 Uxkvheyd40.2cm/s PVa mdnvgwoe032ajjq LEFT VENTRICLE The left ventricle is normal size. There is moderate concentric left ventricular hypertrophy. The lef t ventricular systolic function is normal and the ejection fraction is within normal range. The Eject ion Fraction is >55%. There is normal LV segmental wall motion. Transmitral Doppler flow pattern is G rade I-abnormal relaxation pattern. RIGHT VENTRICLE The right ventricle is normal size. There is normal right ventricular wall thickness. The right ventr icular systolic function is normal. ATRIA The left atrium is borderline dilated. The right atrium size is normal. The interatrial septum is int act with no evidence for an atrial septal defect or patent foramen ovale as noted on 2-D or Doppler i maging. AORTIC VALVE The aortic valve is normal in structure and function. Doppler and Color Flow revealed no significant aortic regurgitation. There is no significant aortic valvular stenosis. MITRAL VALVE The mitral valve is normal in structure and function. There is no evidence of mitral valve prolapse. There is no mitral valve stenosis. Doppler and Color-flow revealed trace mitral regurgitation. TRICUSPID VALVE The tricuspid valve is normal in structure and function. Doppler and Color Flow revealed mild tricusp id regurgitation with an estimated PAP of 35 mmHg. There is no tricuspid valve stenosis. PULMONIC VALVE Doppler and Color Flow revealed trace pulmonic valvular regurgitation. There is no pulmonic valvular stenosis. GREAT VESSELS The aortic root is normal in size. The IVC is dilated. PERICARDIAL EFFUSION There is no evidence of significant pericardial effusion. Critical Notification Critical Value: No <Conclusion> The left ventricular systolic function is normal and the ejection fraction is within normal range. Th e Ejection Fraction is >55%. There is normal LV segmental wall motion. Doppler and Color Flow revealed mild tricuspid regurgitation with an estimated PAP of 35 mmHg. Signed by : Santos Vital, Electronically Approved : 06/10/2018 13:36:48
== END | disposition home or self-care (01) ==
LOC: ECHO 11:35
PROVIDERS: ATTEND Internal Medicine Cardiovascular Disease
DX: I11.9 Hypertensive heart disease without heart failure (principal); I07.1 Rheumatic tricuspid insufficiency; I48.0 Paroxysmal atrial fibrillation
CPT/HCPCS: 93306

== ENCOUNTER → 2018-08-19 | Outpatient (CLI) | payer MEDICARE, OTHER ==
[~2018-08-19] MED LIST changes: +CONTRAST GIVEN. MC PRN; +CYAN-25 PO; -CYAN10005 PO; +IOHEXOL 300 MG/ML 100ML VIAL. IV ONE; +IOHEXOL 300 MG/ML 50 ML VIAL. IJ ONE; +MONT10TA49 PO; -MONT10TA9 PO; -PANT40TA3 PO; -PANT40TA5 PO; +PANT40TA77 PO
--- NOTE | 2018-08-19 14:44 | RAD ---
Fluoroscopically guided left shoulder joint injection, 08/19/2018: HISTORY: Injection for CT arthrogram, left shoulder pain Under local anesthesia, aseptic conditions and fluoroscopic guidance a 22-gauge needle was passed down into the left shoulder joint via an anterior approach. The procedure was complicated by the patient's size and patient motion. A total of 5 cc of Omnipaque 300 was injected followed by 10 cc of sterile saline. Contrast extended into the joint, although there is also moderate medial extravasation of contrast from the joint. 2.5 minutes of fluoroscopy time was utilized. 2 fluoroscopic spot images were recorded. The patient was sent to CT in stable condition. Electronically signed by: Homar Cunningham MD (08/19/2018 2:41 PM) [facility]
--- NOTE | 2018-08-19 17:11 | RAD ---
Examination: CT left shoulder arthrogram HISTORY: History of left shoulder pain COMPARISON: None available. TECHNIQUE: Axial CT images of the left shoulder performed after arthrogram injection. Coronal and sagittal reformats are performed Exposure: One or more of the following individualized dose reduction techniques were utilized for this examination: 1. Automated exposure control 2. Adjustment of the mA and/or kV according to patient size 3. Use of iterative reconstruction technique Findings: Examination is very limited due to positioning and the shoulder joint is not significantly distended with contrast. Severe degenerative changes glenohumeral joint the evaluation of biceps tendon is limited. The attachment of the subscapularis or supraspinatus, infraspinatus tendons grossly appears intact. There is no evidence of extension of contrast into the subacromial subdeltoid bursa to suggest full-thickness rotator cuff tear however evaluation is very limited due to patient shoulder positioning within the CT gantry. There is attenuated appearance of the labrum probably due to degeneration. Mild degenerative changes identified in the common clavicular joint. Acromion is type I. Impression: 1. No obvious evidence of full-thickness rotator cuff tear. 2. Attenuated appearance of the labrum probably due to degeneration. 3. Severe degenerative changes glenohumeral joint. Mild degenerative changes acromioclavicular joint. Electronically signed by: Colton Martinez MD (08/19/2018 5:08 PM) [id number]
== END | disposition home or self-care (01) ==
LOC: RAD 12:43
PROVIDERS: ATTEND Nurse Practitioner Family
DX: M25.512 Pain in left shoulder (principal)
CPT/HCPCS: 23350; 73201; 77002; Q9967

== ENCOUNTER → 2018-09-07 | Outpatient (CLI) | payer MEDICARE, OTHER ==
[~2018-09-07] MED LIST changes: -CONTRAST GIVEN. MC PRN; -CYAN-25 PO; +CYAN10005 PO; -IOHEXOL 300 MG/ML 100ML VIAL. IV ONE; -IOHEXOL 300 MG/ML 50 ML VIAL. IJ ONE
--- NOTE | 2018-09-07 11:27 | RAD ---
PQRS Compliance Statement: One or more of the following individualized dose reduction techniques were utilized for this examination: 1. Automated exposure control 2. Adjustment of the mA and/or kV according to patient size 3. Use of iterative reconstruction technique CT cervical spine without contrast September 07, 2018 INDICATION: Bilateral shoulder pain. COMPARISON: None available TECHNIQUE: Multiple axial CT images of the cervical spine were obtained without intravenous contrast. Coronal and sagittal reformats are provided. FINDINGS: There is reversal of the normal cervical lordosis with kyphosis centered at C6-C7. There is dextroconvex scoliosis of the cervical spine. There is no significant spondylolisthesis. There is moderate disc height loss at C7-T1. Mild disc height loss at C4-C5, C5-C6 and C6-C7. Moderate to advanced anterior marginal osteophytosis is identified from C4-C5 through C7-T1. Degenerative changes are noted at the atlantoaxial articulation. Evaluation of axial images is limited by motion artifact. Levoconvex scoliosis of the upper thoracic spine is identified. No paraspinal soft tissue normality is identified. Visualized portions of the lungs appear clear. Cardiac pacer wires are partially profiled. Thyroid gland is normal in appearance. At C4-C5, there is a posterior disc osteophyte complex with mild facet arthropathy and moderate uncovertebral joint disease resulting in mild to moderate bilateral neuroforaminal stenosis. No spinal canal stenosis. At C5-C6, there is a posterior discussed by complex with mild facet arthropathy and moderate uncovertebral joint disease resulting in moderate left and mild right neuroforaminal stenosis and mild spinal canal stenosis. At C6-C7, there is a posterior disc osteophyte complex with mild facet arthropathy and severe uncovertebral joint disease, left greater than right. There is moderate left and mild right neuroforaminal stenosis. Mild to moderate spinal canal stenosis. At C7-T1, there is a posterior discussed by complex mild facet severe uncovertebral joint disease resulting in severe left and mild to moderate right neuroforaminal stenosis. Mild spinal canal stenosis. There is no acute fracture or vertebral body height loss. Spinous processes are intact. IMPRESSION: Moderate cervical spondylosis, as described in detail above. There is reversal of the normal cervical lordosis with kyphos scoliosis. Electronically signed by: Saray Negro MD (09/07/2018 11:24 AM) [id number]
== END | disposition home or self-care (01) ==
LOC: CT 11:12
PROVIDERS: ATTEND Family Medicine
DX: M47.812 Spondylosis without myelopathy or radiculopathy, cervical region (principal); M48.03 Spinal stenosis, cervicothoracic region; M12.88 Other specific arthropathies, not elsewhere classified, other specified site; M25.78 Osteophyte, vertebrae; I11.0 Hypertensive heart disease with heart failure; I50.30 Unspecified diastolic (congestive) heart failure; I48.0 Paroxysmal atrial fibrillation; K21.9 Gastro-esophageal reflux disease without esophagitis; E78.5 Hyperlipidemia, unspecified; Z95.0 Presence of cardiac pacemaker
CPT/HCPCS: 72125

== ENCOUNTER → 2018-09-30 | Outpatient (CLI) | payer MEDICARE, OTHER ==
[~2018-09-30] MED LIST changes: +CHLO15MO2 PO; +CYAN-25 PO; -CYAN10005 PO; +POLY2500 PO
--- NOTE | 2018-09-30 23:29 | PAIN ---
DATE OF SERVICE: 09/30/2018 INITIAL CONSULTATION FOR PAIN CLINIC CHIEF COMPLAINT: Neck and left upper extremity pain. HISTORY OF PRESENT ILLNESS: This is a 72-year-old female who presents with history of pain in the base of the neck and shoulder on the left side since about 06/10/2018. The patient reports it is not a result of any specific injury or action that she is aware of, but she is having pain in that area since that time for about 4 months now. The patient reports pain is increasing with weightbearing motion of the left shoulder with some tingling and numbness, radiating into the biceps, into the triceps, also in the forearm, both anteriorly and posteriorly and into the fourth and fifth fingers on the left hand with significant tingling and numbness. Reports she is having difficulty with holding items and grasping things. The patient reports the right side has no symptoms. She did have CT scan of the cervical spine showing moderate cervical spondylosis with C6-C7 posterior disk osteophyte complex, moderate left and mild right neural foraminal stenosis, [id number] spinal canal stenosis, left greater than right facet arthropathy. C7-T1 shows severe left and mild to moderate right neural foraminal stenosis as well. The patient rates her disability from 0 to 10, 10 being the worst, and 9 with family home responsibilities, recreation, social activity, self-care and life support activities, 9 in all categories. The patient has not had any current physical therapies and not had any chiropractic treatments or other modalities. She has been doing some stretching on her own and at her assisted living facility has been doing some physical therapy on her there informally as well. PAST MEDICAL HISTORY: Positive for hypertension, congestive heart failure, dizziness, incontinence, arthritis, breast cancer in 2018 on the right. PREVIOUS SURGERY: Other surgeries include hysterectomy, bilateral cataract extraction, lumpectomy, pacemaker placement, left knee replacement, hernia repair and cholecystectomy. CURRENT MEDICATIONS: Include multiple medications including Eliquis and are well documented on the patient's chart. ALLERGIES: The patient reports no known drug allergies. FAMILY HISTORY: Significant for cancer, arthritis and diabetes. SOCIAL HISTORY: The patient does not drink alcohol, does not smoke, does not use any illegal, illicit or recreational drugs. She is single, lives locally at [facility]. REVIEW OF SYSTEMS: The patient's review of systems is positive for those items mentioned in history of present illness. All systems reviewed and otherwise negative. It is complete, full and well documented on the patient's chart. PHYSICAL EXAMINATION: VITAL SIGNS: The patient's blood pressure 122/87, pulse 62, respirations 18, temperature 98.2 degrees Fahrenheit, height 5 feet 1 inch, weight is 260 pounds. GENERAL: The patient is awake, alert, oriented, appropriate, very pleasant demeanor. HEENT: Shows normocephalic, atraumatic. Extraocular movements are intact and symmetrical. Oral cavity, mucous membranes are moist and pink. Dentition is intact. NECK: Shows anterior throat supple without palpable lymphadenopathy noted. Swallow reflex symmetrical. CHEST: Shows normal on inspection. Breath sounds are distant, but clear bilaterally. HEART: Shows S1, S2 clear. No murmurs auscultated. The patient has an easily palpable pacemaker under the left clavicle, which is nontender. ABDOMEN: Obese, but soft, nontender, nondistended. BACK: The patient's back shows spine grossly in the midline. Cervical lordotic curvature is normal in appearance. Cervical paraspinous muscle shows symmetrical on inspection with palpation shows some moderate tenderness throughout the middle and lower distribution of the paraspinous muscles, somewhat more on the left and into the left superior medial trapezius, which is very firm, but without specific trigger points. The patient has good rotational motion of cervical spine, both laterally greater than 45 degrees right and left as well as full extension, full forward flexion without significant increase in pain. EXTREMITIES: Upper extremities show deep tendon reflexes at 2+ in the biceps and triceps tendons are equal. Motor exam is approximately 3 on a scale of 5 with left research subject strength and 4/5 on the right. Bicep and tricep flexion is 4/5 bilaterally. The patient's shoulder shows significant tenderness with movement, especially abduction to about 45-50 degrees, which is very tender and is without loss of strength with resistance on the left side, but not the right, which is abduction at 90 degrees without difficulty without loss of strength with resistance. Peripheral pulses are 2+ in the radial distribution. Upper extremities are warm and dry to touch, equal in color and appearance. No peripheral edema is noted. Shoulder shrug is again painful on the left side with loss of strength without resistance, but no loss of strength on the right. The patient's skin shows warm and dry, good turgor. No edema. No sores, rashes or bruising. IMPRESSION: 1. This is a 72-year-old female with approximately 4-month history of increasing pain in the left upper extremity, shoulder in a radicular fashion into the arm and hand. 2. CT scan of cervical spine as noted. 3. Hypertension. 4. Arthritis. 5. Dizziness. 6. History of breast cancer. PLAN: Options were discussed with the patient including conservative medical management, physical therapies, interventional techniques and she would like to pursue interventional techniques. We discussed a cervical epidural steroid injection using description as well as anatomical models to describe the procedure. The patient will first need clearance to be off her Eliquis. We will check with her plumbing and heating contractor who prescribed this for her to see if this is safe and acceptable to hold this for 3 days prior to potential cervical epidural steroid injection. The patient would like to proceed. We will make these arrangements and if deemed safe and appropriate, we will have her return for cervical epidural steroid injection. The patient requests sedation for the procedure. We will give her a 5 mg Valium through the coordination with her assisted living facility to take this one hour prior to procedure as she does have transportation on the date for potential injection. DESTINEE KIDD MD DR: MARIANN/randall JOB#: [id number] / [id number]
== END | disposition home or self-care (01) ==
LOC: PNCL 09:57
PROVIDERS: ATTEND Anesthesiology
DX: M25.512 Pain in left shoulder (principal); I11.0 Hypertensive heart disease with heart failure; I50.9 Heart failure, unspecified; M19.90 Unspecified osteoarthritis, unspecified site; Z90.710 Acquired absence of both cervix and uterus; Z98.41 Cataract extraction status, right eye; Z98.42 Cataract extraction status, left eye; Z95.0 Presence of cardiac pacemaker; Z96.652 Presence of left artificial knee joint; Z90.49 Acquired absence of other specified parts of digestive tract; Z85.3 Personal history of malignant neoplasm of breast
CPT/HCPCS: G0463

== ENCOUNTER → 2018-10-20 | Outpatient (CLI) | payer MEDICARE, OTHER ==
[~2018-10-20] MED LIST changes: +IOHEXOL 180 MG/ML 10 ML VIAL. ONE; +methylPREDNISolone ACETATE 40 MG/ML VIAL. ONE; +methylPREDNISolone ACETATE 80 MG/ML VIAL. ONE
--- NOTE | 2018-10-21 00:16 | PAIN ---
DATE OF SERVICE: 10/20/2018 PROGRESS NOTE FOR PAIN CLINIC DIAGNOSES: Cervical radiculopathy with cervical degenerative disk disease. HISTORY OF PRESENT ILLNESS: This is a 73-year-old female who returns for followup status post initial evaluation and clearance to hold her Eliquis. She has been off this for 3 days now. This was verified by her caregiver who was transported with her today from her care facility. The patient reports still significant pain in the base of the neck and left upper extremity, shoulder, arm and radiating into the forearm and hand as it was previously. The patient reports it is a 10 on a scale of 10 at its worst in the past week, 10 on average and 8 at its least and is a 10 today. The patient reports it is a burning, constant, aching, shooting into the left arm. The patient reports it awakens her from sleep about every 4 hours, worse with weightbearing, reaching over her head with her left hand and any type of rotational motion of the left arm, repetitive movements. The patient reports no new motor or sensory deficits, no new changes. PHYSICAL EXAMINATION: VITAL SIGNS: The patient's blood pressure 142/79, pulse 66, respirations 18, temperature 98.1 degrees Fahrenheit, height is 5 feet 4 inches, weight is 270 pounds. GENERAL: The patient is awake, alert, oriented, appropriate, very pleasant demeanor. HEENT: Shows normocephalic, atraumatic. Extraocular movements are intact and symmetrical. Oral cavity: Mucous membranes moist and pink. Dentition is intact. NECK: Shows anterior throat supple without palpable lymphadenopathy noted. Swallow reflex symmetrical. CHEST: Shows normal on inspection. Breath sounds clear to auscultation bilaterally. HEART: Shows S1, S2 clear. No murmurs auscultated. ABDOMEN: Soft, nontender, nondistended. No palpable organomegaly is noted. No rebound or guarding demonstrated. EXTREMITIES: The patient's upper extremities show deep tendon reflexes at 2+ in the biceps and triceps tendons. Motor exam is approximately 3-4 on a scale of 5 with lamp cleaner strength and biceps and triceps flexion is about 4 on a scale of 5 on the right and 3/5 on the left. Peripheral pulses are 2+ radial distribution. No peripheral edema is noted. Options were discussed with the patient. The patient's old chart was reviewed as her current medication regimen updated. Current review of systems updated today as well. We will proceed with a cervical epidural steroid injection today with fluoroscopic guidance. Risks were again discussed including, but not limited to bleeding, infection, possibility of epidural hematoma, subsequent neurological compromise, dural puncture, headaches, spinal cord and/or nerve damage, side effects of steroid medication and poor results regarding pain control. The patient understands and wished to proceed. The patient will return to clinic in approximately 2 weeks for followup. She was counseled on return appointment, activity level and side effects to be aware of. The patient will restart Eliquis tomorrow as instructed. DIAGNOSIS: Cervical radiculopathy with cervical degenerative disk disease. PROCEDURE: Cervical epidural steroid injection, translaminar approach C6-C7 level using C-arm fluoroscopic guidance under sterile prep and drape using local anesthetic. MEDICATION INJECTED: A total of 120 mg Depo-Medrol plus 5 mL of preservative-free normal saline and 2 mL of contrast. CONDITION AT DISCHARGE: Stable. The patient tolerated procedure well, had no complications. DESTINEE KIDD MD DR: MARIANN/randall JOB#: [id number] / [id number]
== END ==
LOC: PNCL 11:34
PROVIDERS: ATTEND Anesthesiology
DX: M50.123 Cervical disc disorder at C6-C7 level with radiculopathy (principal)
CPT/HCPCS: 62321; J1030; J1040; Q9965

== ENCOUNTER → 2019-03-03 | Outpatient (CLI) | payer MEDICARE, OTHER ==
[2019-02-02 13:02] VITALS: BP 146/55
[~2019-03-03] MED LIST changes: +ACET1TAB33 PO; -CETI10TA22 PO; +CETI10TA24 PO; +IBUP-1027 PO; -IOHEXOL 180 MG/ML 10 ML VIAL. ONE; +LACT1CAP48 PO; +LEVO500T59 PO; -MAGN400T3 PO; +MAGN400T5 PO; -MELA3TAB2 PO; +MELA3TAB56 PO; +MORP-15 PO; +MORP-16 PO; -MORP15TA3 PO; -MORP30TA3 PO; -MORP60TA PO; +MORP60TA60 PO; +ONDA-84 PO; -ONDA4TAB11 PO; -POTA10TA12 PO; +POTA20TA4 PO; -POTA20TA82 PO; +POTASSIUM CHLO10 ME1 PO; -methylPREDNISolone ACETATE 40 MG/ML VIAL. ONE; -methylPREDNISolone ACETATE 80 MG/ML VIAL. ONE
--- NOTE | 2019-03-03 23:07 | PAIN ---
DATE OF SERVICE: 03/03/2019 PROGRESS NOTE FOR PAIN CLINIC DIAGNOSES: Cervical radiculopathy with cervical degenerative disk disease. HISTORY OF PRESENT ILLNESS: The patient is a 73-year-old female, who returns for followup status post cervical epidural steroid injection x 1, last seen on 10/20/2018. The patient did very well with about a 90% improvement into the pain; however, it was her left arm that was hurting mostly and her right arm is now the one that is painful in the base of the neck and shoulder. Her left arm is essentially pain free. The patient reports the right arm has been returning now over about 3-4 weeks, base of the neck, right upper extremity, radiating to the posterior upper arm, anterior upper arm, biceps, forearm in the anterior and posterior aspect as well and into the thumb, especially on the right hand. The patient reports numbness and tingling, cramping in the neck, sharp pain as well as shooting. The patient reports it is a 10 on a scale of 10 at its worst, 9 on average, 8-9 at its least and is a 9 today. The patient reports no new motor or sensory deficits or other complaints, worse with reaching over her head with her right hand or lifting items. She has been dropping things she reports frequently with her right hand and arm, but her left side is doing much better since her injection in September. The patient reports no new motor or sensory deficits or other complaints. PHYSICAL EXAMINATION: VITAL SIGNS: The patient's blood pressure is 122/80, pulse is 73, respirations are 16, temperature 98.1 degrees Fahrenheit. GENERAL: The patient is awake, alert, oriented, appropriate, very pleasant demeanor. HEENT: Shows normocephalic, atraumatic. Extraocular movements are intact and symmetrical. Oral cavity: Mucous membranes moist and pink. Dentition is intact. NECK: Shows anterior throat supple without palpable lymphadenopathy noted. Swallow reflex symmetrical. CHEST: Shows normal on inspection. Breath sounds are clear bilaterally. HEART: Shows S1, S2 clear. No murmurs auscultated. ABDOMEN: Soft, nontender, nondistended. No palpable organomegaly is noted. BACK: Shows spine grossly in the midline. Cervical lordosis is maintained as is thoracic kyphosis. Cervical paraspinous muscle shows symmetrical on inspection, on palpation shows some moderate tenderness diffusely bilaterally, but only diffusely without significant radiation. The patient does show good rotational motion. Reports pain with extension as well as right and left lateral rotation of the cervical spine, which is performed fully greater than 45 degrees, but very painful and exacerbating pain in the right shoulder. EXTREMITIES: The patient's upper extremities show deep tendon reflexes 2+ in biceps and triceps tendons. Motor exam is approximately 3-4 on a scale of 5 on the right heel finisher strength and 5/5 on the left. Bicep and tricep flexion is likewise about 3-4 on the right and 5 on the left. Peripheral pulses are 2+ radial. No peripheral edema is noted bilaterally. PLAN: Options were discussed with the patient. The patient's old chart was reviewed as her current medication regimen updated. Current review of systems updated today as well. We will check with the patient's edge trimmer once again as it has been about 6 months since her last visit to [place] holding Eliquis for 3 days prior to potential cervical epidural steroid injection and she would like to proceed with this. In the meantime, the patient will just keep doing continuous stretching and strengthening exercises, but we will wait to hear from the patient's edge trimmer regarding the Eliquis. If deemed safe and appropriate, we will have her hold this and plan on return for cervical epidural steroid injection at that time. DESTINEE KIDD MD DR: MARIANN/randall JOB#: [id number] / [id number]
== END | disposition home or self-care (01) ==
LOC: PNCL 11:41
PROVIDERS: ATTEND Anesthesiology
DX: M50.10 Cervical disc disorder with radiculopathy, unspecified cervical region (principal)
CPT/HCPCS: G0463

== ENCOUNTER → 2019-03-15 | Day surgery (SDC) | payer MEDICARE, OTHER ==
[~2019-03-15] MED LIST changes: +IV RINGERS,LACTATED 1000ML 1,000 ML IV ONE; +LIDOCAINE 2% PF 5 ML VIAL. ONE; +PROPOFOL 40 ML IV ONE
[2019-03-15 09:23] VITALS: BP 142/82
--- NOTE | 2019-03-15 10:35 | CONS ---
DATE OF CONSULTATION: 03/15/2019 REFERRING PHYSICIAN: Fabiola Temple MD REASON FOR CONSULTATION: Reflux and diarrhea. HISTORY OF PRESENT ILLNESS: A 73-year-old -[place] female with past medical history significant for organic heart disease, AFib, chronic illness, anemia, lymphedema, pulmonary hypertension, constipation, dementia, depression, reflux, hyperlipidemia, hypertension as well as breast cancer and status post cholecystectomy, is seen for increased reflux, and diarrhea. She has been on antibiotics intermittently. Stool studies have been nonrevealing. Her reflux has been not controlled with medical therapy. With continued issues, she requests additional evaluation. PAST MEDICAL HISTORY: Organic heart disease, AFib, chronic illness, anemia, bradycardia, lymphedema, pulmonary hypertension, constipation, dementia, depression, GERD, breast cancer, hyperlipidemia. ALLERGIES: PENICILLIN. MEDICATIONS: Include Tylenol, Humira, DuoNeb, amlodipine, Eliquis, Zostrix, Zyrtec, vitamin D, vitamin B, ____, Pepcid, ferrous sulfate, hydralazine, Linzess, losartan, magnesium hydroxide, methotrexate, Remeron, montelukast, Zofran, oxycodone, pantoprazole, potassium chloride, timolol maleate, Carafate, sennosides. PAST SURGICAL HISTORY: Status post cholecystectomy and breast lumpectomy. REVIEW OF SYSTEMS: Per records. FAMILY AND SOCIAL HISTORY: Does not drink or smoke. She is retired, lives in a care home. PHYSICAL EXAMINATION: GENERAL: Reveals an alert -[place] female. VITAL SIGNS: Temperature is 97.3, pulse 70, respirations 22. LUNGS: Reveal decreased breath sounds. CARDIOVASCULAR: Reveals an S1, S2 without S3, S4 or appreciable murmur. ABDOMEN: Reveals a soft abdomen, normal bowel sounds, without appreciable hepatosplenomegaly. Right upper quadrant cholecystectomy incision. IMPRESSION: 1. Gastroesophageal reflux disease. Etiology is to be determined, gastroparesis, peptic ulcer disease, Yanez's, malignancy are certainly in the differential. Recommend upper endoscopy with possible biopsy and/or dilatation. 2. Diarrhea, most likely is multifactorial in view of all her medications, but irritable bowel syndrome, inflammatory bowel disease, colon polyps, colon cancer, are certainly in the differential as well. Colonoscopy will be pursued. GALDINO WHEELER MD DR: Carmita JOB#: [id number] / [id number]
--- NOTE | 2019-03-17 14:07 | PATHOLOGY ---
[facility] Accession Number: [id number] . 01 Material submitted: . PART A: esophagus - DISTAL ESOPHAGUS BX. Modifiers: distal PART B: colon - DESCENDING COLON POLYP. Modifiers: descending PART C: colon - TRANSVERSE COLON POLYP. Modifiers: transverse . 01 Clinical history: . GERD, abdominal pain . 02 Diagnosis: A. Esophagus, distal, biopsy: - Hyperplastic squamous epithelium without significant inflammation. . B. Colon biopsy, descending colon polyp: - Tubular adenoma. . C. Colon biopsy, transverse colon polyp: - Tubular adenoma showing focal high grade dysplasia. [facility] 03/17/2019 0930 Local . 02 Comment: Sections of the transverse colon biopsy reveal a tubular adenoma showing focal high grade dysplasia. There is no evidence of adenocarcinoma invading submucosa. The base of the polyp reveals colonic mucosa and submucosa showing coagulative changes with no evidence of high grade dysplasia. Part C of this case has also been reviewed by Dr. Pierre Flores who agrees with the diagnosis. . (SKM:[facility] 03/17/2019) . . . . 02 Electronically signed: . Adebayo Galeano MD, Pathologist NPI- [id number] . 01 Gross description: . A. Received in formalin labeled "Stephen, Stephanie, distal esophagus BX," are 3 segments of melendez soft tissue measuring 0.9 x 0.8 x 0.2 cm in aggregate dimensions and ranging from 0.4 to 0.8 cm in maximum dimension. The specimen is submitted entirely in cassette A1. . B. Received in formalin labeled "Stephen, Stephanie, descending colon polyp," is a 0.8 x 0.5 x 0.6 cm polypoid piece of melendez soft tissue. The margin is inked and the tissue is sectioned perpendicular to the margin and submitted entirely in cassette B1. . C. Received in formalin labeled "Stephen, Stephanie, transverse colon polyp," is a 1.0 x 0.9 x 0.8 cm polypoid piece of melendez soft tissue. The margin is inked and the tissue is sectioned perpendicular to the margin and submitted entirely in cassette C1 and C2. ([facility]; 03/15/2019) TOB/TOB 03/16/2019 1430 Local . 02 Pathologist provided ICD-10: D12.4, D12.3 . 02 CPT . 160581, 098640, [id number] Specimen Comment: A courtesy copy of this report has been sent to [phone], [phone] Specimen Comment: [id number] Specimen Comment: Report sent to / DR ROBISON Performed at: 01 [facility] [address] [id number] MD Leon Dunaway MD Phone: [phone] Performed at: 02 [facility] [address] [place], [place] [id number] MD John Flores MD Phone: [phone]
== END | disposition home or self-care (01) ==
LOC: ENDOS 07:16
PROVIDERS: ATTEND Internal Medicine Gastroenterology
DX: R10.32 Left lower quadrant pain (principal); D12.4 Benign neoplasm of descending colon; D12.3 Benign neoplasm of transverse colon; K64.0 First degree hemorrhoids; K63.89 Other specified diseases of intestine; K21.0 Gastro-esophageal reflux disease with esophagitis; K31.89 Other diseases of stomach and duodenum; I48.91 Unspecified atrial fibrillation; D64.9 Anemia, unspecified; I27.20 Pulmonary hypertension, unspecified; F03.90 Unspecified dementia, unspecified severity, without behavioral disturbance, psychotic disturbance, mood disturbance, and anxiety; F32.9 Major depressive disorder, single episode, unspecified; Z88.0 Allergy status to penicillin; Z91.018 Allergy to other foods; Z85.3 Personal history of malignant neoplasm of breast; Z90.49 Acquired absence of other specified parts of digestive tract; Z79.899 Other long term (current) drug therapy
CPT/HCPCS: 43239; 45385; 88305; J2001; J2704; 45384

== ENCOUNTER 2019-06-11 19:38 | Inpatient (IN) | payer OTHER ==
[~2019-06-11 19:38] MED LIST changes: -IV RINGERS,LACTATED 1000ML 1,000 ML IV ONE; -LIDOCAINE 2% PF 5 ML VIAL. ONE; +MELA3TAB4 PO; -MELA3TAB56 PO; -PROPOFOL 40 ML IV ONE
[2019-06-11] MEDS ORDERED: ACETAMINOPHEN 650 MG SUPP.RECT. PR PRN (20:30)
[2019-06-11] MEDS ORDERED: LORazepam INTENSOL 2 MG/ML ORAL.CONC SL PRN (20:30)
[2019-06-11] MEDS ORDERED: SCOPOLAMINE 1.5MG PATCH. TD SCH (21:00)
[2019-06-11] MEDS ORDERED: MORPHINE SULFATE 20 MG/ML CONC SOLUTION. SL PRN (21:00)
[2019-06-12] MEDS: MORPHINE SULFATE 2 MG/ML VIAL. IV PRN ×3 (03:30→11:54)
[2019-06-12] MEDS ORDERED: PCA SYRING IV ONE ×2 (06:30→16:00)
[2019-06-12] MEDS ORDERED: MORPHINE SULFATE IV ONE ×2 (06:30→16:00)
[2019-06-12 07:00] VITALS: BP 150/74
--- NOTE | 2019-06-12 12:33 | HP ---
ADMIT DATE: 06/12/2019 CHIEF COMPLAINT: Shortness of breath. HISTORY OF PRESENT ILLNESS: The patient is a pleasant elderly female who presented with shortness of breath. Last night, she was placed on oxygen and admitted on IV antibiotics and breathing treatments and we checked her for COVID-19. Apparently, it is positive. Her symptoms worsened last night and the family agreed to go with hospice. She is now on in-house hospice. PAST MEDICAL HISTORY: Polypharmacy, advanced age, hypertension, allergic rhinitis, rheumatoid arthritis, anemia, chronic anticoagulation, hypertension, chronic pain, depression, anxiety, asthma, and glaucoma. ALLERGIES: PENICILLIN, ORANGES, AND TOMATOES. FAMILY HISTORY: Hypertension. SOCIAL HISTORY: She does not drink, smoke or take drugs. MEDICATIONS: Reviewed, please refer to the MRAD. REVIEW OF SYSTEMS: Unable to obtain. The patient is on 100% nonrebreather and unconscious and struggling to breathe. PHYSICAL EXAMINATION: HEART: Tones distant S1, S2, tachycardic. LUNGS: Coarse. ABDOMEN: Soft. EXTREMITIES: Trace edema. SKIN: No rashes. PSYCHIATRIC: She is unconscious. NEUROLOGIC: She is unconscious. HEENT: She has 100% nonrebreather on. ASSESSMENT AND PLAN: Respiratory failure. The patient was admitted. We initially were going to do COVID-19 protocol, but now the family has decided on hospice. For now, we are going to continue p.r.n. morphine, nebulizers p.r.n. for patient comfort. O2 per 100% nonrebreather. We will try to titrate that down. PROGNOSIS: Terminal. SARA ARREOLA DO DR: DON/randall JOB#: [id number] / [id number]
[2019-06-12] MEDS ORDERED: IV NORMAL SALINE 1000ML BAG 1,000 ML IV SCH (13:04)
[2019-06-12] MEDS ORDERED: NALOXONE 0.4 MG/ML VIAL. IV PRN (13:15)
[2019-06-12] MEDS ORDERED: MORPHINE SULFATE/PF 30 ML IV PRN (13:15)
[2019-06-12 19:00] VITALS: BP 117/60
[2019-06-12] MEDS: MORPHINE SULFATE/PF 30 ML IV PRN (19:54)
[2019-06-13] MEDS: MORPHINE SULFATE/PF 30 ML IV PRN (06:04)
[2019-06-13 07:00] VITALS: BP 101/52
--- NOTE | 2019-06-13 12:04 | DS ---
DATE OF DISCHARGE: 06/13/2019 ADMISSION DIAGNOSIS: Coronavirus disease-19 pneumonia. CAUSE OF : COVID-19 pneumonia. HOSPITAL COURSE: The patient is a pleasant 73-year-old female who presented with pneumonia. She was admitted to the COVID-19 floor. She was COVID-19 positive. We initially started routine COVID-19 protocol, but then the family decided on inpatient hospice. This morning, I saw and examined the patient. She was having agonal respirations. She was on 100% nonrebreather. Heart tones were very distant, and a few minutes ago, the nurse called and explained that the patient had just . SARA ARREOLA DO DR: DON/randall JOB#: [id number] / [id number]
== END 2019-06-13 11:32 | disposition expired | DRG 177 ==
LOC: 6 SOUTH 19:38
PROVIDERS: ADMIT Internal Medicine; ATTEND Internal Medicine
DX: U07.1 COVID-19 (principal); J12.89 Other viral pneumonia; J96.90 Respiratory failure, unspecified, unspecified whether with hypoxia or hypercapnia; I10 Essential (primary) hypertension; J45.909 Unspecified asthma, uncomplicated; M06.9 Rheumatoid arthritis, unspecified; Z79.01 Long term (current) use of anticoagulants; Z82.49 Family history of ischemic heart disease and other diseases of the circulatory system; D64.9 Anemia, unspecified; F32.9 Major depressive disorder, single episode, unspecified; F41.9 Anxiety disorder, unspecified; G89.29 Other chronic pain; Z88.0 Allergy status to penicillin; Z91.018 Allergy to other foods; Z79.899 Other long term (current) drug therapy
CPT/HCPCS: J2060; J2270; G0378